=== PATIENT | male | born 1960 | race African-American/Black ===

== ENCOUNTER 2017-04-21 08:34 | Day surgery (SDC) | payer BC ==
[2017-04-21] MEDS ORDERED: Sodium Chloride 0.9% 20 ML ONE (08:42)
[2017-04-21] MEDS ORDERED: diphenhydrAMINE 25 MG CAP PO SCH (08:45)
[2017-04-21] MEDS ORDERED: Acetaminophen 500 MG TAB PO SCH (08:45)
[2017-04-21 09:47] VITALS: BP 97/61; TEMP 98
== END 2017-04-21 09:47 | disposition home or self-care (01) ==
LOC: ONC/OP 08:34
PROVIDERS: ATTEND Internal Medicine Hematology & Oncology
PROC: 30233N1 Transfusion of Nonautologous Red Blood Cells into Peripheral Vein, Percutaneous Approach (ICD-10-PCS; principal; 2017-04-21)
DX: D64.9 Anemia, unspecified (principal); D69.6 Thrombocytopenia, unspecified; E11.9 Type 2 diabetes mellitus without complications; E78.5 Hyperlipidemia, unspecified; Z88.6 Allergy status to analgesic agent; Z98.890 Other specified postprocedural states
CPT/HCPCS: 36430; 86900; 86901; 99211; A4216; G0463; P9035

== ENCOUNTER 2017-04-29 08:59 | Day surgery (SDC) | payer BC ==
--- NOTE | 2017-04-27 18:28 | HP ---
HISTORY OF PRESENT ILLNESS: Tomas Child 56-year-old black male, who I have seen in the past for a MediPort. He had multiple myeloma, light chain, having a stem cell transplant MD Win, [place] this, went into remission now. I have been requested to place a MediPort by Dr. Machado to resume treatment for recurrence. The patient has a history of acute renal failure, requiring dialysis cath eter and peritoneal dialysis catheter, which was placed, revised and then eventually removed. He is followed by Dr. Eden for his chronic kidney disease. The plan is to place a MediPort. He understand s the risks and benefits and consents. TOBACCO: One-half pack per day. ALCOHOL: None. MEDICATIONS: Revlimid 15 mg a day, aspirin 81 mg a day, 10 mg twice a day, Humulin 70/30 insul in, Warren 10/325 p.r.n. pain. PAST SURGICAL HISTORY: Right knee surgery in 1989, peritoneal dialysis catheter placed in 2013, revi sed and eventually removed, MediPort placement in 2013 that removed, MediPort placement in [place] placed and removed. PAST MEDICAL HISTORY: Multiple myeloma, light chain; history of acute renal failure with chronic kid daryl disease, followed by Dr. Eden; and history of tobacco use. SOCIAL HISTORY: Tobacco one-half pack per day. Alcohol none. The patient is disabled, and has three children. PHYSICAL EXAMINATION: VITAL SIGNS: 109/67, 81, 99.3 degrees, 197 pounds, 5 feet 10 inches. HEAD, EYES, EARS, NOSE, AND THROAT: Unremarkable. LUNGS: Clear to auscultation. CARDIAC: Regular rate and rhythm without murmur or gallop. ABDOMEN: Soft, nontender, no masses. EXTREMITIES: Unremarkable. ASSESSMENT: Recurrent multiple myeloma. PLAN: Placement of a MediPort. He understands the risks, benefits and consents.
[2017-04-28 14:40] VITALS: BMI 26.5
[2017-04-29] MEDS ORDERED: CEFAZOLIN/Water 2 GM/20 ML SYRINGE ONE (09:36)
[2017-04-29] MEDS ORDERED: Lidocaine 2% w/Epinephrine 1:200K 20 ML VIAL ONE (09:40)
[2017-04-29] MEDS ORDERED: Bupivacaine 0.25% HCL 30 ML VIAL ONE (09:40)
[2017-04-29] MEDS ORDERED: Fentanyl 100 MCG/2 ML VIAL ONE (10:09)
[2017-04-29] MEDS ORDERED: Midazolam HCl 2 mg/2 ml Vial ONE (10:09)
[2017-04-29] MEDS ORDERED: Insulin Regular 300 UNITS/3 ML VIAL ONE (10:13)
--- NOTE | 2017-04-29 11:32 | OP ---
DATE OF SERVICE: 04/29/2017 PREOPERATIVE DIAGNOSIS: Recurrent multiple myeloma in need of antineoplastic chemotherapy access. POSTOPERATIVE DIAGNOSIS: Recurrent multiple myeloma in need of antineoplastic chemotherapy access. PROCEDURE: Right subclavian vein MediPort, low profile, fluoroscopy used less than 25 seconds. SURGEON: Dr. Prfaul Johansen ANESTHESIA: General LMA. Local 0.5% Marcaine, 30 mL, mixed with 2% Xylocaine, 10 mL. PROCEDURE: The patient was taken to the operating room where under general anesthesia, chest was cli pped of hair, prepared with ChloraPrep, draped in routine fashion. Local anesthetic infiltrated into skin and subcutaneous tissue about the operative site. Trocar catheter cannulated the right subclav ramesh vein. J-wire threaded, trocar catheter removed. Skin incised and enlarged sharply through an ol d MediPort scar right chest, carried down through the skin and subcutaneous tissue and a pocket creat ed with blunt and sharp dissection using cautery for hemostasis. Dilator and pull-away sheath placed over the J-wire into the superior vena cava and J wire and dilator removed. Catheter placed through pull-away sheath; pull-away sheath removed. Under fluoroscopic visualization, the tip of catheter p laced in the superior vena cava and in proper position. Catheter tailored to length and connected to the MediPort, placed in subcutaneous pocket and secured with 3-0 Prolene sutures x2. Subcutaneous t issues approximated with 3-0 Monocryl, skin with subdermal 4-0 Monocryl and DermaGlue applied. MediP ort cannulated with the Baum needle, aspirated blood, and flushed with heparinized saline solution. Fluoroscopic images revealed good catheter placement.
--- NOTE | 2017-04-29 15:11 | RAD ---
PORTABLE CHEST ONE VIEW: Date: 04-29-17 Time: 11:14 a.m. History: Mediport placement. FINDINGS/IMPRESSION: The heart size is normal. There is a right subclavian port-a-cath with tip in the projection of the S VC. No lobar consolidation, pneumothoraces, or pleural effusions are seen. There is no evidence of fr ank pulmonary edema. There are old right sided rib fractures. POS: [facility]
[2017-04-29] MEDS ORDERED: Lidocaine 1% PF 5 ML VIAL ONE (16:31)
[2017-04-29] MEDS ORDERED: PROPOFOL 200 MG/20 ML VIAL ONE (16:31)
== END 2017-04-29 13:53 | disposition home or self-care (01) ==
LOC: SDC 08:59
PROVIDERS: ATTEND Specialist
PROC: 0JH60WZ Insertion of Totally Implantable Vascular Access Device into Chest Subcutaneous Tissue and Fascia, Open Approach (ICD-10-PCS; principal; 2017-04-29)
PROC: 02HV33Z Insertion of Infusion Device into Superior Vena Cava, Percutaneous Approach (ICD-10-PCS; principal; 2017-04-29)
DX: C90.00 Multiple myeloma not having achieved remission (principal); F17.210 Nicotine dependence, cigarettes, uncomplicated; I12.9 Hypertensive chronic kidney disease with stage 1 through stage 4 chronic kidney disease, or unspecified chronic kidney disease; E10.22 Type 1 diabetes mellitus with diabetic chronic kidney disease; N18.9 Chronic kidney disease, unspecified; K21.9 Gastro-esophageal reflux disease without esophagitis; K59.00 Constipation, unspecified; G47.00 Insomnia, unspecified; Z79.82 Long term (current) use of aspirin; Z79.899 Other long term (current) drug therapy; Z88.5 Allergy status to narcotic agent; Z88.6 Allergy status to analgesic agent; Z98.890 Other specified postprocedural states
CPT/HCPCS: 36416; 71045; 96372; C1788; J1642; J1815; J2001; J2250; J2704; J3010; S0020

== ENCOUNTER 2017-05-01 11:27 | Day surgery (SDC) | payer BC ==
[2017-05-01] MEDS ORDERED: Acetaminophen 500 MG TAB PO SCH (12:00)
[2017-05-01] MEDS ORDERED: diphenhydrAMINE 25 MG CAP PO SCH (12:00)
[2017-05-01] MEDS ORDERED: Sodium Chloride 0.9% 20 ML ONE (13:06)
[2017-05-01 17:42] VITALS: TEMP 97.9
[2017-05-01 18:10] VITALS: BP 106/61
[2017-05-01 18:48] LABS: #Lymphocytes 0.4 thou/uL (1.20-3.40); #Neutrophils 1.7 thou/uL (1.40-6.50); %Eosinophils 0.3 % (0.0-10.0); %Lymphocytes 18.8 % (21.0-51.0); %Monocytes 0.9 % (0.0-10.0); Hemoglobin 8.6 g/dL (14.0-18.0); Mean Corpuscular HGB CONC 34.5 g/dL (32.0-36.0); Mean Corpuscular Volume 92.8 fl (80.0-94.0); Mean Platelet Volume 8.5 fL (7.4-10.4); Platelet Count 70 thou/uL (130-400); RBC Distribution Width 14.9 % (11.5-14.5); Red Blood Cell (RBC) Count 2.69 mill/uL (4.70-6.10); White Blood Cell (WBC) Count 2.2 thou/uL (4.8-10.8)
== END 2017-05-01 18:21 | disposition home or self-care (01) ==
LOC: ONC/OP 11:27
PROVIDERS: ATTEND Internal Medicine Hematology & Oncology
PROC: 30233N1 Transfusion of Nonautologous Red Blood Cells into Peripheral Vein, Percutaneous Approach (ICD-10-PCS; principal; 2017-05-01)
PROC: 30233R1 Transfusion of Nonautologous Platelets into Peripheral Vein, Percutaneous Approach (ICD-10-PCS; principal; 2017-05-01)
DX: N18.9 Chronic kidney disease, unspecified (principal); D63.1 Anemia in chronic kidney disease; D69.6 Thrombocytopenia, unspecified; C90.00 Multiple myeloma not having achieved remission; F17.210 Nicotine dependence, cigarettes, uncomplicated; Z88.5 Allergy status to narcotic agent; Z88.6 Allergy status to analgesic agent
CPT/HCPCS: 36430; 85025; 86850; 86900; 86901; J1642; P9016; P9035

== ENCOUNTER 2017-05-06 12:42 | Inpatient (IN) | payer BC ==
[2017-05-06 13:35] LABS: #Eosinphils 0.1 thou/uL (0.0-0.7); #Lymphocytes 0.3 thou/uL (1.20-3.40); #Neutrophils 1.3 thou/uL (1.40-6.50); %Basophils 0.3 % (0.0-1.0); %Eosinophils 3.4 % (0.0-10.0); %Lymphocytes 17.2 % (21.0-51.0); %Monocytes 0.6 % (0.0-10.0); %Neutrophils 78.4 % (42.0-75.0); Hemoglobin 11.2 g/dL (14.0-18.0); Mean Corpuscular HGB CONC 33.7 g/dL (32.0-36.0); Mean Corpuscular Hemoglobin 31.5 pg (27.0-31.0); Mean Corpuscular Volume 93.5 fl (80.0-94.0); Mean Platelet Volume 10.2 fL (7.4-10.4); Platelet Count 41 thou/uL (130-400); RBC Distribution Width 14.9 % (11.5-14.5); Red Blood Cell (RBC) Count 3.56 mill/uL (4.70-6.10); White Blood Cell (WBC) Count 1.6 thou/uL (4.8-10.8)
[2017-05-06 13:50] LABS: ALT (SGPT) 10 U/L (8-55); AST (SGOT) 16 U/L (5-34); Alkaline Phosphatase 175 U/L (40-150); Anion Gap 12 mmol/L (10-20); BUN (Urea Nitrogen) 27 mg/dL (8.4-25.7); Bilirubin, Total 0.7 mg/dL (0.2-1.2); Calc. Creatinine Clearance 0 mL/min (70-130); Carbon Dioxide 25 mmol/L (22-29); Chloride 103 mmol/L (98-107); Estimated GFR-MDRD 30; Globulin 3.4 g/dL (2.4-3.5); Glucose 474 mg/dL (70-105); Potassium 4.7 mmol/L (3.5-5.1); Protein, Total 7.4 g/dL (6.0-8.3); Sodium 135 mmol/L (136-145)
[2017-05-06 14:11] LABS: Calcium Greater than 17.0 mg/dL (7.8-10.44)
--- NOTE | 2017-05-06 14:34 | RAD ---
UPRIGHT PORTABLE CHEST ONE VIEW: History: 56-year-old male with history of cough. Comparison: 04-29-17 FINDINGS: Right subclavian catheter and injection port. Healed right rib fracture. Heart size is within normal limits. There are increased linear and interstitial markings in the lower lung zones bilaterally, mor e prominent than on the prior study. Possibilities include that of minimal bibasilar pneumonitis and/ or subsegmental atelectasis. The mid and upper lung zones are clear. IMPRESSION: Patchy increased markings noted in the lower lung zones bilaterally, worse on the right side, raising concern for minimal lower lobe pneumonia-pneumonitis and/or subsegmental atelectasis. Correlate clin ically. If there is concern clinically for pneumonia, treatment and short term follow up for clearing or stability is recommended. POS: [facility]
[2017-05-06] MEDS ORDERED: Cefepime 2 GM/10 ML SYR ONE (15:06)
--- NOTE | 2017-05-06 17:11 | HP ---
PRIMARY CARE PROVIDER: Dr. Ventura. ONCOLOGIST: Dr. Danika Machado. CHIEF COMPLAINT: Referred to the [facility] by [facility] for pn eumonia and complications. HISTORY OF PRESENT ILLNESS: The patient has had illness for about 2-3 days back spasms, fever undocu mented, nonproductive cough, shortness of breath, chills, and sweats frequently. The patient has a h istory of multiple myeloma for 2 years, is currently on chemotherapy. He has a history of acute denae l failure requiring dialysis in the past, hypercalcemia, diabetes mellitus, insulin-dependent x2 year s. CURRENT MEDICATIONS: Lantus insulin, lispro, and hydrocodone. He does not know doses. ALLERGIES: He is allergic to IBUPROFEN. SURGICAL HISTORY: He has had a MediPort x2. The most recent done 1 week ago. He has had a hemodial ysis catheter placed in the past, which have been removed. FAMILY HISTORY: No one with multiple myeloma. He has one brother with diabetes mellitus type 2. SOCIAL HISTORY: , full code status. next of kin at bedside. Smokes half a pack a day f or many years. Drinks no alcohol. REVIEW OF SYSTEMS: GENERAL: No dizziness or fainting or headache. EYES: He has blurry vision with no double vision, flashing lights. ENT: No ear pain or drainage. No nasal bleeding. No trouble swallowing. No oral pain. CARDIAC: No chest pain, orthopnea or paroxysmal nocturnal dyspnea. RESPIRATIONS: See present illness. GASTROINTESTINAL: No nausea, vomiting, abdominal pain, and diarrhea. GENITOURINARY: Difficult urination for about 2 weeks. No blood in his urine. MUSCULOSKELETAL: No pain or swelling in his arms and legs. He does have back spasms currently. NEUROLOGIC: No strokes, seizures or focal weakness. PSYCHIATRIC: No anxiety or depression. SKIN: No bruising, bleeding or rash. HEME/LYMPH: No tender or swollen lymph nodes, he is aware of. PHYSICAL EXAMINATION: GENERAL: He is an alert, cooperative gentleman. VITAL SIGNS: Blood pressure 150/73, pulse 64, respirations 24, temperature 98.5, O2 sat 95 on room a ir. HEENT: Pupils equal, round, and reactive to light. Extraocular movements are intact. Sclerae white . Tympanic membranes clear. Nose is clear. Oral mucous membranes are wet. Dental hygiene is good. NECK: No jugular venous distention, adenopathy or thyromegaly. CHEST: Clear auscultation anteriorly. He has bilateral posterior basilar rales, right greater than left. HEART: Regular rate and rhythm. First and second heart sounds clear. No appreciated murmurs or gal lops. ABDOMEN: Soft, bowel sounds are normal. No hepatosplenomegaly, no mass, no rebound. EXTREMITIES: Reveal no cyanosis, clubbing or edema. PULSES: Carotid, radial, femoral, and pedal pulses were palpable and symmetric. SKIN: Warm and dry without bruises or rash. LYMPHATIC SURVEY: No tender or swollen lymph nodes in axilla, inguinal or cervical area. NEUROLOGICAL: Cranial nerves II-XII are intact. Deep tendon reflexes symmetric. Moves all extremit ies. LABORATORY AND X-RAY FINDINGS: EKG: None provided. We will order chest x-ray. No cardiomegaly. H e has bilateral patchy basilar infiltrates consistent with pneumonia, reviewed by me. Calcium is gre ater than 17, blood sugar 474, creatinine 2.68, BUN 27, sodium 135, potassium 4.7, bilirubin 0.7. T and ALT normal. White count 1.6, hemoglobin 11.2, and platelet count 41,000. ADMITTING DIAGNOSES: 1. Pneumonia. 2. Pancytopenia. 3. Multiple myeloma, on chemotherapy. 4. Hypercalcemia. 5. Acute renal failure. 6. Diabetes mellitus, insulin-dependent. PLAN: Blood cultures have been drawn and urine cultures have been ordered. We will start antibiotic s with cefepime and Levaquin. IV fluids will be given. Routine INR will be done. Accu-Cheks will b e started q.6h. Sliding scale has been initiated. CBC will be monitored daily. Basic metabolic pro file will be monitored daily. Dr. Arnold has been consulted and has seen the patient and has stated he will treat hyperkalemia. Dr. Danika Machado has been consulted and she will see the patient tomorr ow. ASSESSMENT: This patient with multiple medical problems including hypercalcemia and acute renal fail ure on top of pneumonia with underlying multiple myeloma. I have discussed the plan of treatment wit h the patient and the family and their satisfied with discussion. His prognosis is guarded. He is c urrently not unstable, however.
[2017-05-06] MEDS ORDERED: Acetaminophen 325 MG TAB PO PRN (17:37)
[2017-05-06] MEDS ORDERED: Dextrose 5% in Water 1,000 ML IV PRN (17:37)
[2017-05-06] MEDS ORDERED: Zolpidem Tartrate 5 MG TAB PO PRN (17:37)
[2017-05-06] MEDS ORDERED: HumaLOG 300 UNITS/3 ML VIAL SC PRN (17:37)
[2017-05-06] MEDS ORDERED: Ondansetron HCl/PF 4 MG/2 ML Vial IVP PRN (17:37)
[2017-05-06] MEDS ORDERED: Dextrose 50% Abboject 50 ML SYRINGE SLOW IVP PRN (17:37)
[2017-05-06] MEDS: Sodium Chloride 0.9% 1,000 ML IV SCH ×2 (17:40→21:13)
[2017-05-06] MEDS: Calcitonin,Salmon,Synthetic 200 UNITS/ML SC SCH (20:45)
[2017-05-06] MEDS ORDERED: Cefepime 2 GM in Sodium Chloride 0.9% 100 ML IVPB SCH (21:00)
[2017-05-07] MEDS: HumaLOG 300 UNITS/3 ML VIAL SC PRN ×5 (00:11→21:37)
[2017-05-07] MEDS: Cefepime 2 GM in Syringe 12.5 ML SLOW IVP SCH ×2 (02:32→15:44)
[2017-05-07 05:34] LABS: #Lymphocytes 0.6 thou/uL (1.20-3.40); #Monocytes 0.1 thou/uL (0.11-0.59); #Neutrophils 1.9 thou/uL (1.40-6.50); %Eosinophils 0.8 % (0.0-10.0); %Lymphocytes 22.5 % (21.0-51.0); %Monocytes 3.3 % (0.0-10.0); %Neutrophils 73.3 % (42.0-75.0); Hemoglobin 9.1 g/dL (14.0-18.0); Mean Corpuscular HGB CONC 34.5 g/dL (32.0-36.0); Mean Platelet Volume 10.1 fL (7.4-10.4); Platelet Count 31 thou/uL (130-400); RBC Distribution Width 15.1 % (11.5-14.5); Red Blood Cell (RBC) Count 2.85 mill/uL (4.70-6.10); White Blood Cell (WBC) Count 2.6 thou/uL (4.8-10.8)
[2017-05-07 05:40] LABS: Anion Gap 12 mmol/L (10-20); BUN (Urea Nitrogen) 31 mg/dL (8.4-25.7); Calc. Creatinine Clearance 38 mL/min (70-130); Calcium 15.6 mg/dL (7.8-10.44); Carbon Dioxide 22 mmol/L (22-29); Chloride 110 mmol/L (98-107); Estimated GFR-MDRD 33; Glucose 363 mg/dL (70-105); Potassium 4.5 mmol/L (3.5-5.1); Sodium 139 mmol/L (136-145)
--- NOTE | 2017-05-07 06:13 | CON ---
DATE OF CONSULTATION: 05/06/2017 NEPHROLOGY CONSULT NOTE CONSULTING PHYSICIAN: Dr. Deluca REASON FOR CONSULTATION: Acute kidney injury on chronic kidney disease. REASON FOR ADMISSION: Pneumonia. HISTORY OF PRESENT ILLNESS: A 56-year-old male with history of chronic kidney disease, hypercalcemia , type 2 diabetes, multiple myeloma, came to the hospital with pneumonia and is being admitted, was f ound to have hypercalcemia and chronic kidney disease. Nephrology is consulted. Oncology is also co nsulted. The patient is very weak and feeling tired. No nausea, vomiting, no chest pain, or palpita tion reported. PAST MEDICAL HISTORY: Positive for multiple myeloma, chronic kidney disease, history of CKD in the p ast and needing dialysis. PAST SURGICAL HISTORY: MediPort placement, dialysis access placements, and bone marrow transplant. HOME MEDICATIONS: Lantus, hydrocodone, Lispro. ALLERGIES: IBUPROFEN. SOCIAL HISTORY: Smokes half pack per day. No alcohol or illicit drug abuse. FAMILY HISTORY: No history of acute kidney disease. REVIEW OF SYSTEMS: The following complete review of systems was negative, unless otherwise mentioned in the HPI or below: Constitutional: Weight loss or gain, ability to conduct usual activities. Sk in: Rash, itching. Eyes: Double vision, pain. ENT/Mouth: Nose bleeding, neck stiffness, pain, te nderness. Cardiovascular: Palpitations, dyspnea on exertion, orthopnea. Respiratory: Shortness of breath, wheezing, cough, hemoptysis, fever or night sweats. Gastrointestinal: Poor appetite, abdom inal pain, heartburn, nausea, vomiting, constipation, or diarrhea. Genitourinary: Urgency, frequenc y, dysuria, nocturia. Musculoskeletal: Pain, swelling. Neurologic/Psychiatric: Anxiety, depressio n. Allergy/Immunologic: Skin rash, bleeding tendency. PHYSICAL EXAMINATION: GENERAL: This is a well-built male in no apparent distress. VITAL SIGNS: Temperature 96, pulse 107, respiratory rate 18, blood pressure 145/87. HEENT: Atraumatic, normocephalic. Oral mucosa is moist. NECK: Supple. CVS: S1, S2 heard. RESPIRATORY: Clear. MUSCULOSKELETAL: . DERMATOLOGIC: No skin rash. NEUROLOGIC: Alert, awake. PSYCHIATRIC: Mood and affect normal. LABORATORY AND X-RAY FINDINGS: Hemoglobin is 11.2, potassium is 4.7, BUN 27, creatinine is 2.6. ASSESSMENT AND PLAN: 1. Acute kidney injury on chronic kidney disease, most likely from hypercalcemia, agree with hydrati on. 2. Hypercalcemia, severe, most likely related to multiple myeloma. Agree with hydration and will al so start calcitonin 4 units per kilogram q.12 hours for 4 doses. Consider Zometa also every 3-4 week s, but will defer it to Oncology, not sure if he has gotten any dose recently. If not, then will con service and repair supervisor a dose in the morning after adequate hydration. 3. Hyponatremia, mild. 4. Hyperglycemia. Continue insulin. 5. Multiple myeloma. 6. Proteinuria. 7. Anemia, mild. Plan is to continue hydration and monitor renal function. Monitor calcium level. We will follow. Thank you for the consultation.
[2017-05-07] MEDS: Sodium Chloride 0.9% 1,000 ML IV SCH (06:27)
--- NOTE | 2017-05-07 08:00 | PDOC.PN ---
- Subjective Encounter Start Date: 05/07/17 Encounter Start Time: 07:58 Subjective: more alert, feels better - Objective Resuscitation Status: Resuscitation Status FULL:Full Resuscitation MAR Reviewed: Yes Vital Signs & Weight: Vital Signs (12 hours) Temp Pulse Resp BP 05/07/17 04:35 98.3 F 94 20 112/76 Weight Weight 177 lb 9 oz I&O: 05/06/17 05/07/17 05/08/17 06:59 06:59 06:59 Intake Total 1740 Output Total 750 Balance 990 Result Diagrams: 05/07/17 04:39 05/07/17 04:39 Additional Labs: Accuchecks 05/07/17 05/06/17 05/06/17 04:25 23:54 19:10 POC Glucose 372 H 385 H 491 H 05/06/17 18:23 POC Glucose 502 H Phys Exam - Physical Examination Neck: no JVD basilar rales Cardiovascular: RRR, no significant murmur Gastrointestinal: soft, positive bowel sounds Musculoskeletal: no edema Dx/Plan (1) PNA (pneumonia) Code(s): J18.9 - PNEUMONIA, UNSPECIFIED ORGANISM Status: Acute Qualifiers: Pneumonia type: due to unspecified organism Laterality: bilateral Lung location: lower lobe of lung Qualified Code(s): J18.9 - Pneumonia, unspecified organism (2) Pancytopenia Code(s): D61.818 - OTHER PANCYTOPENIA Status: Acute (3) Multiple myeloma Code(s): C90.00 - MULTIPLE MYELOMA NOT HAVING ACHIEVED REMISSION Status: Chronic Qualifiers: Multiple myeloma remission status: not in remission Qualified Code(s): C90.00 - Multiple myeloma not having achieved remission (4) Hypercalcemia Code(s): E83.52 - HYPERCALCEMIA Status: Acute (5) Acute renal failure Status: Acute - Plan cont calcitonin per renal- serial Ca levels -: cont iv fluids, creat improved -: cont iv antibx for PNA- C&S pending -: discuss with oncology, nephrology * .
[2017-05-07] MEDS: Insulin Detemir 100 UNITS/ML 20 UNITS in Pre-Filled Syringe 1 EACH SC SCH (09:46)
[2017-05-07] MEDS: Calcitonin,Salmon,Synthetic 200 UNITS/ML SC SCH ×2 (10:25→21:45)
--- NOTE | 2017-05-07 10:59 | PRG ---
Patient Name: NANDA JOHNSON Date of service: 05/07/2017 Subjective: Patient was seen and examined at bedside and overnight events noted. Patient denies any shortness of breath or chest pain or palpitation. No history of nausea or vomiting or diarrhea or fever or chills or cramps. Objective: General: This is a well-built male in no apparent distress. Vital signs : Temperature 98.3, pulse 90, respiratory rate 20, blood pressure 112/76. HEENT: Atraumatic, normocephalic. Oral mucosa is moist. Neck: Supple. Cardiovascular: S1 S2 heard. Rate and rhythm regular. Respiratory: Clear to auscultation. Gastrointestinal: Abdomen is soft. Musculoskeletal: No tenderness. No edema. Dermatologic: No skin rash. Neurologic: Alert and awake and oriented X3. No focal neurologic deficits. Moving all the extremit ies. Psychiatric: Mood and affect normal. LABORATORY DATA: Potassium 4.5, BUN 31, creatinine is 2.4. ASSESSMENT AND PLAN: 1. Acute kidney injury on chronic kidney disease stage 3. Renal function seems to be slightly cleo r with hydration. Continue current management. 2. Hypercalcemia, most likely secondary to malignancy. Follow with Oncology. Continue calcitonin a nd IV fluids. Lasix if needed and also consider Zometa. 3. Hyponatremia. 4. Hyperglycemia 5. Multiple myeloma. 6. Proteinuria. 7. Anemia. Calcium level is getting better. Awaiting input from Oncology. We will follow.
[2017-05-07] MEDS ORDERED: diphenhydrAMINE 50 MG/ML VIAL IVP SCH (14:15)
[2017-05-07] MEDS ORDERED: SODIUM CHLORIDE 0.9% IV SCH ×3 (14:30→14:45)
[2017-05-07] MEDS ORDERED: DARATUMUMAB IV SCH ×3 (14:30→14:45)
[2017-05-07] MEDS ORDERED: Dexamethasone 20 MG in Sodium Chloride 0.9% 50 ML IVPB SCH (14:30)
[2017-05-07] MEDS ORDERED: Famotidine/PF 20 MG in Sodium Chloride 0.9% 50 ML IVPB SCH (14:30)
[2017-05-07] MEDS ORDERED: Dexamethasone 10 MG in Sodium Chloride 0.9% 50 ML IVPB SCH (14:30)
--- NOTE | 2017-05-07 15:31 | CON ---
DATE OF CONSULTATION: 05/07/2017 REASON FOR CONSULTATION: Multiple myeloma. HISTORY OF PRESENT ILLNESS: Mr. Child is a 56-year-old -[place] male with kappa light deyanira n multiple myeloma, diagnosed 2 years ago. He presented at time of diagnosis with kidney failure. Margarito douglas was seen by MD Win and underwent a stem cell transplant and was in remission until middle of l year when he relapsed. He was on dialysis for a short period of time. MD Win gave him a cy sophie of in 03/2017. He did require a blood transfusion at that time. He was following up in [facility] to receive chemotherapy in this area. As he lives in this area, the decision was made with MD Win to place him on daratumumab. He presented to our clinic yesterday for a day #1 of treatm ent. He was complaining of cough and upper respiratory symptoms. Chemotherapy was started. Labs we re repeated and his calcium returned greater than 17. He was thus brought to the emergency room for further evaluation and a chest x-ray performed showed a possible pneumonia. He was started on antibi otics, IV fluids, and received calcitonin. Currently, he complains of back pain. No chest pain or s hortness of breath, no abdominal pain, no headache. PAST MEDICAL HISTORY: 1. [place] light chain multiple myeloma. 2. Diabetes mellitus 2. 3. Chronic kidney disease. 4. Acid reflux. 5. Chronic back pain. PAST SURGICAL HISTORY: 1. Stem cell transplant in 2014. 2. MediPort placement. ALLERGIES: IBUPROFEN. HOME MEDICATIONS: 1. Aspirin 81 mg daily. 2. Baclofen 10 mg q.8 hours p.r.n. 3. Hydrocodone 10/325. 4. Insulin daily. 5. Protonix 40 mg daily. FAMILY HISTORY: His uncle had an unknown type of cancer. SOCIAL HISTORY: He is . He has 3 children. Lives with his spouse. A [id number] smoker. No alcohol or illicit drug use. REVIEW OF SYSTEMS: A 10-point review of systems is negative except for noted in HPI. PHYSICAL EXAMINATION: VITAL SIGNS: Temperature is 97.8, pulse is 99, respiratory rate is 18 and BP is 116/74. He is satti ng 90% on room air. GENERAL: A well-developed, well-nourished male in no acute distress. HEENT: Normocephalic and atraumatic. Pupils are equal and reactive to light. NECK: Supple. CARDIOVASCULAR: Regular rate and rhythm. LUNGS: Clear. ABDOMEN: Soft and nontender, bowel sounds are positive. EXTREMITIES: There is no clubbing, cyanosis or edema. SKIN: No rash. HEMATOLOGIC: No petechia or purpura. NEUROLOGIC: Nonfocal. PSYCHIATRIC: The patient is alert and oriented and appropriate. PERTINENT LABORATORY AND X-RAYS: Current WBCs are 2.6, hemoglobin 9.1, hematocrit 26.5, platelet cou nt is 31,000, 73% neutrophils and 22% lymphocytes. Sodium is 139, potassium 4.5, chloride 110, CO2 i s 22, BUN is 31, creatinine 2.47, calcium is 15.6, total bilirubin is 0.7, AST 16, ALT is 10, alkalin e phosphatase is 175, serum total protein is 7.5, albumin 4 and globulin 3.4. Radiology per HPI. ASSSESSMENT: 1. Multiple myeloma. 2. Hypercalcemia. 3. Chronic pancytopenia due to chemo and myeloma. 4. Chronic kidney disease 4. 5. Pneumonia. DISCUSSION: The patient has started on IV hydration, calcitonin for his calcium and antibiotics. He will continue day #2 of Darzalex chemotherapy. We will monitor CBC closely; however, he is chronica lly pancytopenic and we will provide supportive care. Thank you for the consult.
[2017-05-07] MEDS: Polyethylene Glycol 3350 17 GM Packet PO PRN (15:51)
[2017-05-08] MEDS: Cefepime 2 GM in Syringe 12.5 ML SLOW IVP SCH ×2 (02:22→15:35)
[2017-05-08 05:39] LABS: Hemoglobin 8.5 g/dL (14.0-18.0); Mean Corpuscular HGB CONC 33.9 g/dL (32.0-36.0); Mean Corpuscular Hemoglobin 31.6 pg (27.0-31.0); Mean Corpuscular Volume 93.3 fl (80.0-94.0); Mean Platelet Volume 10.5 fL (7.4-10.4); Platelet Count 24 thou/uL (130-400); RBC Distribution Width 14.9 % (11.5-14.5); Red Blood Cell (RBC) Count 2.68 mill/uL (4.70-6.10); White Blood Cell (WBC) Count 2.7 thou/uL (4.8-10.8)
[2017-05-08 06:04] LABS: Band 22 % (5-11); Eosinophils 2 % (0-10); Lymphocytes 24 % (21-51); MDiff Complete? YES; Monocytes 2 % (0-10); Neutrophil 50 % (42-75); PLT Morphology Comment Appears Decreased
[2017-05-08 06:14] LABS: Anion Gap 10 mmol/L (10-20); BUN (Urea Nitrogen) 33 mg/dL (8.4-25.7); Calc. Creatinine Clearance 41 mL/min (70-130); Carbon Dioxide 22 mmol/L (22-29); Chloride 113 mmol/L (98-107); Estimated GFR-MDRD 37; Glucose 224 mg/dL (70-105); Potassium 4.2 mmol/L (3.5-5.1); Sodium 141 mmol/L (136-145)
[2017-05-08 06:19] LABS: Calcium 13.7 mg/dL (7.8-10.44)
[2017-05-08] MEDS: Sodium Chloride 0.9% 1,000 ML IV SCH ×2 (07:30→17:44)
[2017-05-08] MEDS: Insulin Detemir 100 UNITS/ML 20 UNITS in Pre-Filled Syringe 1 EACH SC SCH (09:30)
[2017-05-08] MEDS: Calcitonin,Salmon,Synthetic 200 UNITS/ML SC SCH (09:33)
--- NOTE | 2017-05-08 09:58 | PDOC.PN ---
- Subjective Encounter Start Date: 05/08/17 Encounter Start Time: 08:00 states he is doing well with no complaints this morning - Objective Resuscitation Status: Resuscitation Status FULL:Full Resuscitation Vital Signs & Weight: Vital Signs (12 hours) Temp Pulse Resp BP Pulse Ox 05/08/17 07:45 98.1 F 98 18 115/69 93 L 05/08/17 04:00 99.0 F 89 17 117/74 95 05/07/17 23:49 98.8 F 84 16 114/72 94 L Weight Admit Weight 178 lb Weight 173 lb I&O: 05/07/17 05/08/17 05/09/17 06:59 06:59 06:59 Intake Total 1740 2400 Output Total 750 2250 Balance 990 150 Result Diagrams: 05/08/17 05:26 05/08/17 05:26 Additional Labs: Accuchecks 05/08/17 05/08/17 05/08/17 07:33 04:13 00:33 POC Glucose 232 H 220 H 253 H 05/07/17 05/07/17 05/07/17 20:29 16:24 12:12 POC Glucose 312 H 322 H 333 H Phys Exam - Physical Examination Constitutional: NAD HEENT: PERRLA, moist MMs Neck: no nodes, no JVD Respiratory: no wheezing, no rales, clear to auscultation bilateral Cardiovascular: RRR Gastrointestinal: soft, non-tender, no distention Musculoskeletal: no edema, pulses present Neurological: non-focal Psychiatric: normal affect, A&O x 3 Dx/Plan (1) Acute renal failure Status: Acute (2) Hypercalcemia Code(s): E83.52 - HYPERCALCEMIA Status: Acute (3) PNA (pneumonia) Code(s): J18.9 - PNEUMONIA, UNSPECIFIED ORGANISM Status: Acute Qualifiers: Pneumonia type: due to unspecified organism Laterality: bilateral Lung location: lower lobe of lung Qualified Code(s): J18.9 - Pneumonia, unspecified organism (4) Pancytopenia Code(s): D61.818 - OTHER PANCYTOPENIA Status: Acute (5) Multiple myeloma Code(s): C90.00 - MULTIPLE MYELOMA NOT HAVING ACHIEVED REMISSION Status: Chronic Qualifiers: Multiple myeloma remission status: not in remission Qualified Code(s): C90.00 - Multiple myeloma not having achieved remission - Plan cont current plan of care, plan discussed w/ family, continue antibiotics * . continue IVF and calcitonin monitor creatnine and Ca in am follow recs from oncology and nephro
[2017-05-08 10:18] VITALS: BMI 24.8
--- NOTE | 2017-05-08 10:53 | PQF ---
NANDA JOHNSON [facility] [id number] CLINICAL DOCUMENTATION IMPROVEMENT CLARIFICATION FORM: ICD-10 Updated PLEASE DO AN ADDENDUM TO THE PROGRESS NOTE WITH ANY DOCUMENTATION UPDATES OR ADDITIONS AND CARRY THROUGH TO DC SUMMARY. THANK YOU. DATE: 05-08-17 ATTN: DR. JOHNSON Please exercise your independent, professional judgment in responding to the clarification form. Clinical indicators are provided on the bottom of this form for your review Please check appropriate box(s): [ ] Empirically treating Gram Negative Pneumonia [ ] Empirically treating Anaerobic Pneumonia [ ] Pneumonia secondary to (specify organism / underlying disease) [ ] Simple Pneumonia (community acquired - nosocomial) [ ] Pneumonia of unknown etiology [ ] Other diagnosis [ ] Unable to determine For continuity of documentation, please document condition throughout progress notes and discharge summary. Thank You. CLINICAL INDICATORS - SIGNS / SYMPTOMS / LABS ER: PNA; MULTIPLE MYELOMA; PANCYTOPENIA WBC 2-21 1.6 H&P: NONPRODUCTIVE COUGH; SOB; CHILLS; SWEATS FREQUENTLY MULTIPLE MYELOMA ON CHEMO PNA CXR: PATCHY INCREASED MARKINGS NOTED LOWER LUNG ZONES BILATERALLY. CONCERN FOR MINIMAL LOWER LOBE PNEUMONIA - PNEUMONITIS AND /OR SUBSEGMENTAL ATELECTASIS RISK FACTORS H&P: NONPRODUCTIVE COUGH; SOB; CILLS; SWEATS FREQUENTLY MULTIPLE MYELOMA ON CHEMO PNA TREATMENTS: MAR: MAXIPIME 05-06 / 05-07 / 05-08 LEVAQUIN 2- NS THANK YOU, CHARMAINE (This form is maintained as a part of the permanent medical record) 2014 [employer] All Rights Reserved Charmaine Bustillo RN, BS [email or web address] [employer] [facility]
[2017-05-08] MEDS: HYDROcodone/Acetaminophen 7.5/325 mg Tablet PO PRN ×2 (11:15→16:07)
[2017-05-08] MEDS ORDERED: Zoledronic Acid 3 MG in Sodium Chloride 0.9% 100 ML IVPB SCH (11:30)
[2017-05-08] MEDS: HumaLOG 300 UNITS/3 ML VIAL SC PRN ×2 (16:51→21:06)
[2017-05-08] MEDS: Polyethylene Glycol 3350 17 GM Packet PO PRN (17:39)
[2017-05-08] MEDS: Docusate 100 MG CAP PO SCH (21:07)
--- NOTE | 2017-05-08 23:30 | PRG ---
DATE OF SERVICE: 05/08/2017 SUBJECTIVE: Patient was seen and examined at bedside and overnight events noted. Patient denies any shortness of breath or chest pain or palpitation. No history of nausea or vomiting or diarrhea or f ever or chills or cramps. OBJECTIVE: GENERAL: This is a well-built male in no apparent distress. VITAL SIGNS: Temperature 98.7, pulse 90, respiratory 20, blood pressure 128/83. HEENT: Atraumatic, normocephalic. Oral mucosa is moist. NECK: Supple. CARDIOVASCULAR: S1, S2 heard. Rate and rhythm regular. RESPIRATORY: Clear to auscultation. GASTROINTESTINAL: Abdomen is soft. MUSCULOSKELETAL: No tenderness. No edema. DERMATOLOGIC: No skin rash. NEUROLOGIC: Alert and awake and oriented x3. No focal neurologic deficits. Moving all the extremit ies. PSYCHIATRIC: Mood and affect normal. LABORATORY DATA: Potassium is 4.2, BUN is 33, creatinine is 2.2. ASSESSMENT AND PLAN: 1. Acute kidney injury on chronic kidney disease stage 3. Her renal function was slightly improved. 2. Hypercalcemia related to malignancy. Continue calcitonin and IV fluids. Case discussed with Onc ology and plan is to start Zometa. His GFR is more than 30. Recommend 3 mg. 3. Hyponatremia, stable. 4. Multiple myeloma. 5. Proteinuria. 6. Anemia. 7. Edema, controlled. 8. Continue IV fluids at 100 mL per hour. We will consider Lasix if fluid overload. Follow up with Oncology.
[2017-05-09] MEDS: Cefepime 2 GM in Syringe 12.5 ML SLOW IVP SCH ×2 (03:30→15:00)
[2017-05-09] MEDS: Sodium Chloride 0.9% 1,000 ML IV SCH ×2 (04:17→12:35)
[2017-05-09 04:48] LABS: #Eosinphils 0.1 thou/uL (0.0-0.7); #Lymphocytes 0.6 thou/uL (1.20-3.40); #Monocytes 0.1 thou/uL (0.11-0.59); #Neutrophils 1.9 thou/uL (1.40-6.50); %Eosinophils 3.9 % (0.0-10.0); %Lymphocytes 21.8 % (21.0-51.0); %Monocytes 4.8 % (0.0-10.0); %Neutrophils 69.5 % (42.0-75.0); Hemoglobin 5.8 g/dL (14.0-18.0); Mean Corpuscular HGB CONC 34.9 g/dL (32.0-36.0); Mean Corpuscular Hemoglobin 32.2 pg (27.0-31.0); Mean Corpuscular Volume 92.3 fl (80.0-94.0); Platelet Count 18 thou/uL (130-400); RBC Distribution Width 14.7 % (11.5-14.5); White Blood Cell (WBC) Count 2.8 thou/uL (4.8-10.8)
[2017-05-09 04:49] LABS: Anion Gap 9 mmol/L (10-20); BUN (Urea Nitrogen) 30 mg/dL (8.4-25.7); Calc. Creatinine Clearance 47 mL/min (70-130); Carbon Dioxide 23 mmol/L (22-29); Chloride 112 mmol/L (98-107); Estimated GFR-MDRD 44; Glucose 187 mg/dL (70-105); Magnesium 1.6 mg/dL (1.6-2.6); Phosphorus 2.7 mg/dL (2.3-4.7); Potassium 3.6 mmol/L (3.5-5.1); Sodium 140 mmol/L (136-145)
[2017-05-09] MEDS: HumaLOG 300 UNITS/3 ML VIAL SC PRN ×3 (05:41→17:42)
[2017-05-09 05:57] LABS: Hemoglobin 8.5 g/dL (14.0-18.0); Platelet Count 17 thou/uL (130-400)
[2017-05-09] MEDS: Docusate 100 MG CAP PO SCH ×2 (08:41→20:15)
[2017-05-09] MEDS: Insulin Detemir 100 UNITS/ML 20 UNITS in Pre-Filled Syringe 1 EACH SC SCH (08:42)
[2017-05-09] MEDS: Polyethylene Glycol 3350 17 GM Packet PO SCH (08:42)
--- NOTE | 2017-05-09 09:36 | PDOC.PN ---
- Subjective Encounter Start Date: 05/09/17 Encounter Start Time: 08:00 doing better. no acute night events. feels like his mind is clearing up more - Objective Resuscitation Status: Resuscitation Status FULL:Full Resuscitation Vital Signs & Weight: Vital Signs (12 hours) Temp Pulse Resp BP Pulse Ox 05/09/17 08:13 98.7 F 100 18 95 05/09/17 07:20 98.7 F 100 18 99/65 95 Weight Admit Weight 178 lb Weight 173 lb I&O: 05/08/17 05/09/17 05/10/17 06:59 06:59 06:59 Intake Total 2400 4872.5 Output Total 2250 2400 Balance 150 2472.5 Result Diagrams: 05/09/17 05:47 05/09/17 04:30 Additional Labs: Accuchecks 05/09/17 05/08/17 05/08/17 05:36 20:20 16:45 POC Glucose 217 H 367 H 416 H 05/08/17 11:52 POC Glucose 208 H Phys Exam - Physical Examination Constitutional: NAD HEENT: PERRLA, moist MMs Neck: no nodes, no JVD Respiratory: no wheezing, no rales, no rhonchi, clear to auscultation bilateral Cardiovascular: RRR Gastrointestinal: soft, non-tender, no distention Musculoskeletal: pulses present Neurological: non-focal Psychiatric: normal affect, A&O x 3 Dx/Plan (1) Acute renal failure Status: Acute (2) Hypercalcemia Code(s): E83.52 - HYPERCALCEMIA Status: Acute (3) PNA (pneumonia) Code(s): J18.9 - PNEUMONIA, UNSPECIFIED ORGANISM Status: Acute Qualifiers: Pneumonia type: due to unspecified organism Laterality: bilateral Lung location: lower lobe of lung Qualified Code(s): J18.9 - Pneumonia, unspecified organism Comment: likely community acquired (4) Pancytopenia Code(s): D61.818 - OTHER PANCYTOPENIA Status: Acute (5) Multiple myeloma Code(s): C90.00 - MULTIPLE MYELOMA NOT HAVING ACHIEVED REMISSION Status: Chronic Qualifiers: Multiple myeloma remission status: not in remission Qualified Code(s): C90.00 - Multiple myeloma not having achieved remission - Plan cont current plan of care, plan discussed w/ family, continue antibiotics, PT/OT * . continue current plan calcitonin and IVF follow recs from Oncology renal following. order PT
[2017-05-09] MEDS ORDERED: Furosemide 40 MG/4 ML VIAL SLOW IVP SCH (12:00)
--- NOTE | 2017-05-09 12:32 | PRG ---
DATE OF SERVICE: 05/09/2017 SUBJECTIVE: Patient was seen and examined at bedside and overnight events noted. Patient denies any shortness of breath or chest pain or palpitation. No history of nausea or vomitin g or diarrhea or fever or chills or cramps. OBJECTIVE: GENERAL: This is a well-built male, in no apparent distress. VITAL SIGNS: Temperature 98.4, pulse 92, respiratory rate 18, blood pressure 118/77. HEENT: Atraumatic, normocephalic. Oral mucosa is moist NECK: Supple. CARDIOVASCULAR: S1 and S2 heard. Rate and rhythm regular. RESPIRATORY: Clear to auscultation. GASTROINTESTINAL: Abdomen is soft. MUSCULOSKELETAL: No tenderness. No edema. DERMATOLOGIC: No skin rash. NEUROLOGIC: Alert and awake and oriented X3, No focal neurologic deficits. Moving all the extremitie s. PSYCHIATRIC: Mood and affect normal. LABORATORY DATA: Potassium 3.6, BUN 70, creatinine 1.9, calcium is 13. Hemoglobin is 8.5, better fr om 5.8. ASSESSMENT AND PLAN: 1. Acute kidney injury on chronic kidney stage 3. Renal function is stable. 2. Feeling better. 3. Hypercalcemia related to malignancy, gave a dose of Zometa, finished calcitonin and continue IV f luids. We will continue to give a dose of Lasix also today. 4. Hyponatremia, stable. 5. Multiple myeloma. 6. Anemia. 7. . 8. Edema, controlled. One dose of Lasix today, continue IV fluids. We will follow.
[2017-05-09] MEDS: HYDROcodone/Acetaminophen 7.5/325 mg Tablet PO PRN (12:34)
[2017-05-10] MEDS: HumaLOG 300 UNITS/3 ML VIAL SC PRN ×5 (00:15→20:35)
[2017-05-10] MEDS: Sodium Chloride 0.9% 1,000 ML IV SCH ×4 (00:18→17:09)
[2017-05-10] MEDS: Cefepime 2 GM in Syringe 12.5 ML SLOW IVP SCH ×2 (03:45→15:01)
[2017-05-10 05:20] LABS: Anion Gap 9 mmol/L (10-20); BUN (Urea Nitrogen) 23 mg/dL (8.4-25.7); Calc. Creatinine Clearance 56 mL/min (70-130); Carbon Dioxide 22 mmol/L (22-29); Chloride 109 mmol/L (98-107); Estimated GFR-MDRD 53; Glucose 192 mg/dL (70-105); Potassium 3.4 mmol/L (3.5-5.1); Sodium 137 mmol/L (136-145)
[2017-05-10 05:33] LABS: Calcium 12.5 mg/dL (7.8-10.44)
[2017-05-10 05:40] LABS: Band 4 % (5-11); Lymphocytes 8 % (21-51); MDiff Complete? YES; Monocytes 28 % (0-10); Neutrophil 60 % (42-75); PLT Morphology Comment Appears Decreased
[2017-05-10] MEDS: Insulin Detemir 100 UNITS/ML 20 UNITS in Pre-Filled Syringe 1 EACH SC SCH (08:22)
[2017-05-10] MEDS: Docusate 100 MG CAP PO SCH ×2 (08:22→20:31)
[2017-05-10] MEDS: Polyethylene Glycol 3350 17 GM Packet PO SCH (08:22)
--- NOTE | 2017-05-10 11:30 | PDOC.PN ---
- Subjective Encounter Start Date: 05/10/17 Encounter Start Time: 09:20 Subjective: feels better, no sob, is amb in room - Objective Resuscitation Status: Resuscitation Status FULL:Full Resuscitation MAR Reviewed: Yes Vital Signs & Weight: Vital Signs (12 hours) Temp Pulse Resp BP Pulse Ox 05/10/17 08:00 98.8 F 101 H 16 90/63 96 05/10/17 07:26 98.6 F 94 16 Weight Admit Weight 178 lb Weight 173 lb I&O: 05/09/17 05/10/17 05/11/17 06:59 06:59 06:59 Intake Total 4872.5 3570 Output Total 2400 2975 Balance 2472.5 595 Result Diagrams: 05/10/17 04:50 05/10/17 04:50 Additional Labs: Accuchecks 05/10/17 05/09/17 05/09/17 05:49 19:56 16:45 POC Glucose 218 H 334 H 347 H 05/09/17 11:26 POC Glucose 244 H Phys Exam - Physical Examination HEENT: PERRLA, moist MMs Neck: no JVD, supple Respiratory: no wheezing, no rales Cardiovascular: RRR, no significant murmur Gastrointestinal: soft, non-tender, positive bowel sounds Musculoskeletal: no edema, pulses present Neurological: non-focal, moves all 4 limbs Psychiatric: A&O x 3 Dx/Plan (1) PNA (pneumonia) Code(s): J18.9 - PNEUMONIA, UNSPECIFIED ORGANISM Status: Acute Qualifiers: Pneumonia type: due to unspecified organism Laterality: bilateral Lung location: lower lobe of lung Qualified Code(s): J18.9 - Pneumonia, unspecified organism Comment: likely community acquired (2) Acute renal failure Status: Acute Comment: resolving (3) Hypercalcemia Code(s): E83.52 - HYPERCALCEMIA Status: Acute Comment: sec to multiple myeloma (4) Pancytopenia Code(s): D61.818 - OTHER PANCYTOPENIA Status: Acute (5) Multiple myeloma Code(s): C90.00 - MULTIPLE MYELOMA NOT HAVING ACHIEVED REMISSION Status: Chronic Qualifiers: Multiple myeloma remission status: not in remission Qualified Code(s): C90.00 - Multiple myeloma not having achieved remission Comment: prior failed stem cell therapy, now on chemo - Plan is on levaquin, cefepime -: gentle iv hydration -: serum akanksha is 12.5 -: renal function is slowly trending back to baseline -: likely dc in am if ok with hemeonc, has severe pancytopenia * . Review of Systems - Medications/Allergies Allergies/Adverse Reactions: Allergies Allergy/AdvReac Type Severity Reaction Status Date / Time ibuprofen Allergy Severe Verified 04/28/17 14:41 morphine Allergy "BAD Verified 04/28/17 14:41 REACTION" Medications: Current Medications Acetaminophen (Tylenol) 650 mg PO Q4H PRN PRN Reason: Headache/Fever or Pain Hydrocodone Bitart/Acetaminophen ([place] 7.5/325) 1 tab PO Q4H PRN PRN Reason: Moderate Pain (4-6) Last Admin: 05/09/17 12:34 Dose: 1 tab Dextrose/Water (Dextrose 50%) 25 gm SLOW IVP PRN PRN PRN Reason: Hypoglycemia Docusate Sodium (Colace) 100 mg PO BID [facility] Last Admin: 05/10/17 08:22 Dose: 100 mg Glucagon (Glucagon) 1 mg IM PRN PRN PRN Reason: Hypoglycemia Dextrose/Water (D5w) 1,000 mls @ 0 mls/hr IV .Q0M PRN; As Directed PRN Reason: Hypoglycemia Sodium Chloride (Normal Saline 0.9%) 1,000 mls @ 100 mls/hr IV .Q10H [facility] Last Admin: 05/10/17 00:18 Dose: 1,000 mls Levofloxacin 500 mg/ Device 100 mls @ 100 mls/hr IVPB Q2D@1800 [facility] Last Admin: 05/08/17 17:38 Dose: 100 mls Cefepime HCl 2 gm/ Syringe 12.5 mls @ 150 mls/hr SLOW IVP 0300,1500 [facility] Last Admin: 05/10/17 03:45 Dose: 12.5 mls Insulin Detemir 20 units/ (Miscellaneous Medication) 0.2 mls @ 0 mls/hr SC QAM [facility] Last Admin: 05/10/17 08:22 Dose: 0.2 mls Insulin Human Lispro (Humalog) 0 units SC .AGGRESSIVE SLIDING PRN; Protocol PRN Reason: AGGRESSIVE SLIDING SCALE Last Admin: 05/10/17 06:44 Dose: 3 unit Insulin Human Lispro (Humalog) 0 units SC .BEDTIME SLIDING SC PRN; Protocol PRN Reason: BEDTIME SLIDING SCALE Last Admin: 05/10/17 00:15 Dose: 4 unit Ondansetron HCl (Zofran) 4 mg IVP Q6H PRN PRN Reason: Nausea/Vomiting Last Admin: 05/08/17 09:30 Dose: 4 mg Polyethylene Glycol (Miralax) 17 gm PO DAILY PRN PRN Reason: CONSTIPATION Last Admin: 05/08/17 17:39 Dose: 17 gm Polyethylene Glycol (Miralax) 17 gm PO DAILY [facility] Last Admin: 05/10/17 08:22 Dose: 17 gm Sodium Chloride (Flush - Normal Saline) 10 ml IVF Q12HR [facility] Last Admin: 05/10/17 08:22 Dose: Not Given Sodium Chloride (Flush - Normal Saline) 10 ml IVF PRN PRN PRN Reason: Saline Flush Last Admin: 05/07/17 14:59 Dose: 10 ml Zolpidem Tartrate (Ambien) 5 mg PO HSPRN PRN PRN Reason: Insomnia
[2017-05-10 15:11] LABS: #Eosinphils 0.1 thou/uL (0.0-0.7); #Lymphocytes 0.4 thou/uL (1.20-3.40); %Monocytes 2.8 % (0.0-10.0); %Neutrophils 66.3 % (42.0-75.0); Hemoglobin 7.8 g/dL (14.0-18.0); Mean Corpuscular HGB CONC 34.5 g/dL (32.0-36.0); Mean Corpuscular Hemoglobin 31.9 pg (27.0-31.0); Mean Corpuscular Volume 92.4 fl (80.0-94.0); Platelet Count 14 thou/uL (130-400); RBC Distribution Width 15.1 % (11.5-14.5); Red Blood Cell (RBC) Count 2.45 mill/uL (4.70-6.10); White Blood Cell (WBC) Count 1.6 thou/uL (4.8-10.8)
--- NOTE | 2017-05-10 18:24 | PRG ---
DATE OF SERVICE: 05/10/2017 NEPHROLOGY PROGRESS NOTE SUBJECTIVE: Patient was seen and examined at bedside and overnight events noted. Patient denies any shortness of breath or chest pain or palpitation. No history of nausea or vomiting or diarrhea or f ever or chills or cramps. OBJECTIVE: GENERAL: This is a well-built male in no apparent distress. VITAL SIGNS: Temperature 98.9, pulse 87, respiratory rate 16, blood pressure 101/67. HEENT: Atraumatic, normocephalic. Oral mucosa is moist. NECK: Supple. CARDIOVASCULAR: S1, S2 heard. Rate and rhythm regular. RESPIRATORY: Clear to auscultation. GASTROINTESTINAL: Abdomen is soft. MUSCULOSKELETAL: No tenderness. No edema. DERMATOLOGIC: No skin rash. NEUROLOGIC: Alert and awake and oriented x3. No focal neurologic deficits. Moving all the extremiti es. PSYCHIATRIC: Mood and affect normal. LABORATORY DATA: Hemoglobin is 7.8, potassium is 3.5, calcium 12.5, and creatinine is 1.7. ASSESSMENT AND PLAN: 1. Acute kidney injury on chronic kidney disease stage 3. Renal function is much better. We will r educe IV fluids to 50 mL per hour. 2. Hypercalcemia related to malignancy, status post Zometa. Monitor calcium. 3. Hyponatremia. 4. Multiple myeloma. Follow with Oncology. 5. 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 6. Edema, controlled. 7. Reduce IV fluids, monitor renal function and calcium, we will follow.
[2017-05-10] MEDS: HYDROcodone/Acetaminophen 7.5/325 mg Tablet PO PRN (20:31)
[2017-05-11] MEDS: Cefepime 2 GM in Syringe 12.5 ML SLOW IVP SCH (02:02)
[2017-05-11] MEDS: Sodium Chloride 0.9% 1,000 ML IV SCH ×2 (02:06→09:00)
[2017-05-11] MEDS: HumaLOG 300 UNITS/3 ML VIAL SC PRN (06:05)
[2017-05-11 08:33] VITALS: TEMP 98.4
--- NOTE | 2017-05-11 08:49 | PRG ---
DATE OF SERVICE: 05/11/2017 SUBJECTIVE: This is a 56-year-old gentleman being seen for acute kidney injury. The patient denies any nausea, vomiting, or chest pain. PHYSICAL EXAMINATION: GENERAL: Patient is awake, alert. VITAL SIGNS: Afebrile, pulse 93, breathing at 16, blood pressure 103/60. OBJECTIVE: See above. Awake, alert, in no acute distress. GENERAL APPEARANCE AND MENTAL STATUS: Fair. HEAD/NECK: Normocephalic. Atraumatic. EYES: EOMI. No deformity. EARS: Clear. No ulcers. NOSE: Intact. No lesions. MOUTH: Clear. No discharge. THROAT: Clear. No exudate. LUNGS: Clear. No crackles. CARDIAC: S1, S2. No rub. ABDOMEN: Benign. BS+. GENITALIA/RECTUM: Bhakta absent. BACK/EXTREMITIES: Edema 0+ Ulcer- NEUROLOGICAL: Alert and motor intact. SKIN: Rash- Bruise- LYMPHATICS: Edema- Ulcer- LABORATORY: Hemoglobin is 7.8, potassium 3.4, creatinine 1.6. ASSESSMENT AND RECOMMENDATIONS: 1. Acute kidney injury with chronic kidney disease, due to multiple myeloma. No indication for dial ysis. 2. Hypokalemia. Recheck potassium. 3. Hypercalcemia. Recheck calcium. Hypercalcemia management per Hematology.
[2017-05-11] MEDS: Insulin Detemir 100 UNITS/ML 20 UNITS in Pre-Filled Syringe 1 EACH SC SCH (08:54)
[2017-05-11] MEDS: Docusate 100 MG CAP PO SCH (09:00)
[2017-05-11] MEDS: Polyethylene Glycol 3350 17 GM Packet PO SCH (09:00)
[2017-05-11 09:40] LABS: Anion Gap 9 mmol/L (10-20); BUN (Urea Nitrogen) 20 mg/dL (8.4-25.7); Calc. Creatinine Clearance 59 mL/min (70-130); Calcium 11.3 mg/dL (7.8-10.44); Carbon Dioxide 20 mmol/L (22-29); Chloride 109 mmol/L (98-107); Estimated GFR-MDRD 56; Glucose 239 mg/dL (70-105); Potassium 3.4 mmol/L (3.5-5.1); Sodium 135 mmol/L (136-145)
--- NOTE | 2017-05-11 12:13 | PDOC.PN ---
- Subjective Encounter Start Date: 05/11/17 Encounter Start Time: 09:15 Subjective: feels better, is amb in room and eating well - Objective Resuscitation Status: Resuscitation Status FULL:Full Resuscitation MAR Reviewed: Yes Vital Signs & Weight: Vital Signs (12 hours) Temp Pulse Resp BP Pulse Ox 05/11/17 08:32 98.4 F 93 18 95/60 98 05/11/17 08:00 98.4 F 93 18 Weight Admit Weight 178 lb Weight 173 lb I&O: 05/10/17 05/11/17 05/12/17 06:59 06:59 06:59 Intake Total 3570 4160 Output Total 2975 2835 Balance 595 1325 Result Diagrams: 05/10/17 15:03 05/11/17 09:03 Additional Labs: Accuchecks 05/11/17 05/10/17 05/10/17 06:04 19:55 17:05 POC Glucose 219 H 261 H 242 H 05/10/17 11:37 POC Glucose 321 H Phys Exam - Physical Examination HEENT: PERRLA, moist MMs Neck: no JVD, supple Respiratory: no wheezing, no rales Cardiovascular: RRR, no significant murmur Gastrointestinal: soft, non-tender, positive bowel sounds Musculoskeletal: no edema, pulses present Neurological: non-focal, moves all 4 limbs Psychiatric: A&O x 3 Dx/Plan (1) PNA (pneumonia) Code(s): J18.9 - PNEUMONIA, UNSPECIFIED ORGANISM Status: Acute Qualifiers: Pneumonia type: due to unspecified organism Laterality: bilateral Lung location: lower lobe of lung Qualified Code(s): J18.9 - Pneumonia, unspecified organism Comment: likely community acquired (2) Acute renal failure Status: Acute Comment: resolving (3) Hypercalcemia Code(s): E83.52 - HYPERCALCEMIA Status: Acute Comment: sec to multiple myeloma (4) Pancytopenia Code(s): D61.818 - OTHER PANCYTOPENIA Status: Acute (5) Multiple myeloma Code(s): C90.00 - MULTIPLE MYELOMA NOT HAVING ACHIEVED REMISSION Status: Chronic Qualifiers: Multiple myeloma remission status: not in remission Qualified Code(s): C90.00 - Multiple myeloma not having achieved remission Comment: prior failed stem cell therapy, now on chemo - Plan hemostable -: adv to drink atleast 2 liters of free water -: d/w [employer] for , is ok for discharge -: to f/u with onc in 1 week -: prognosis guarded with likely aggresive MM * . Review of Systems - Medications/Allergies Allergies/Adverse Reactions: Allergies Allergy/AdvReac Type Severity Reaction Status Date / Time ibuprofen Allergy Severe Verified 04/28/17 14:41 morphine Allergy "BAD Verified 04/28/17 14:41 REACTION" Medications: Current Medications Acetaminophen (Tylenol) 650 mg PO Q4H PRN PRN Reason: Headache/Fever or Pain Hydrocodone Bitart/Acetaminophen ([place] 7.5/325) 1 tab PO Q4H PRN PRN Reason: Moderate Pain (4-6) Last Admin: 05/10/17 20:31 Dose: 1 tab Dextrose/Water (Dextrose 50%) 25 gm SLOW IVP PRN PRN PRN Reason: Hypoglycemia Docusate Sodium (Colace) 100 mg PO BID [facility] Last Admin: 05/11/17 09:00 Dose: Not Given Glucagon (Glucagon) 1 mg IM PRN PRN PRN Reason: Hypoglycemia Dextrose/Water (D5w) 1,000 mls @ 0 mls/hr IV .Q0M PRN; As Directed PRN Reason: Hypoglycemia Levofloxacin 500 mg/ Device 100 mls @ 100 mls/hr IVPB Q2D@1800 [facility] Last Admin: 05/10/17 17:08 Dose: 100 mls Cefepime HCl 2 gm/ Syringe 12.5 mls @ 150 mls/hr SLOW IVP 0300,1500 [facility] Last Admin: 05/11/17 02:02 Dose: 12.5 mls Insulin Detemir 20 units/ (Miscellaneous Medication) 0.2 mls @ 0 mls/hr SC QAM [facility] Last Admin: 05/11/17 08:54 Dose: 0.2 mls Sodium Chloride (Normal Saline 0.9%) 1,000 mls @ 75 mls/hr IV .[id number] [facility] Last Admin: 05/11/17 09:00 Dose: Not Given Insulin Human Lispro (Humalog) 0 units SC .AGGRESSIVE SLIDING PRN; Protocol PRN Reason: AGGRESSIVE SLIDING SCALE Last Admin: 05/11/17 06:05 Dose: 6 unit Insulin Human Lispro (Humalog) 0 units SC .BEDTIME SLIDING SC PRN; Protocol PRN Reason: BEDTIME SLIDING SCALE Last Admin: 05/10/17 20:35 Dose: 3 unit Ondansetron HCl (Zofran) 4 mg IVP Q6H PRN PRN Reason: Nausea/Vomiting Last Admin: 05/08/17 09:30 Dose: 4 mg Polyethylene Glycol (Miralax) 17 gm PO DAILY PRN PRN Reason: CONSTIPATION Last Admin: 05/08/17 17:39 Dose: 17 gm Polyethylene Glycol (Miralax) 17 gm PO DAILY [facility] Last Admin: 05/11/17 09:00 Dose: Not Given Sodium Chloride (Flush - Normal Saline) 10 ml IVF Q12HR [facility] Last Admin: 05/11/17 09:00 Dose: Not Given Sodium Chloride (Flush - Normal Saline) 10 ml IVF PRN PRN PRN Reason: Saline Flush Last Admin: 05/07/17 14:59 Dose: 10 ml Zolpidem Tartrate (Ambien) 5 mg PO HSPRN PRN PRN Reason: Insomnia
[2017-05-11 13:36] VITALS: BP 99/67
--- NOTE | 2017-05-12 00:31 | DIS ---
DATE OF ADMISSION: 05/06/2017 DATE OF DISCHARGE: 05/11/2017 DISCHARGE DISPOSITION: To home. PRIMARY DISCHARGE DIAGNOSES: Progressive multiple myeloma with hypercalcemia; severe dehydration and pancytopenia and acute renal failure, all of which are slowly resolving; pneumonia. PROCEDURES DONE DURING HOSPITALIZATION: The patient had chest x-ray done on the day of admission, wh ich showed patchy infiltrates in lower lung zones with early infiltrate. Blood cultures x2 no growth . Urine culture, no growth. Discharge white count of 1.6 with H&H of 7.8 and 22.7, platelet count o n the day of discharge is 14, MCV is 92 with 66% neutrophils. Discharge BUN and creatinine are 20 an d 1.56. Discharge calcium is 11.3. Initial serum calcium was 17 with an albumin levels of 4.0. His BUN and creatinine were 27 and 2.6 on the day of admission. INPATIENT CONSULTS: Dr. Arnold for Nephrology. Ms. Nevin Arnett for Oncology. DISCHARGE MEDICATIONS: Omnicef 300 mg p.o. twice daily for 1 week for pneumonia, aspirin 81 mg p.o. daily, [place] p.r.n. for pain, Lantus 20 units subcu daily, Protonix 40 mg p.o. daily, MiraLax 17 gram s p.o. daily. ALLERGIES: MOTRIN and MORPHINE. DISCHARGE PLAN: The patient to follow up with Dr. Machado as advised and Dr. Arnold, outreach associate, as advised and primary care physician in 1 week. BRIEF COURSE DURING HOSPITALIZATION: The patient initially got admitted with complaints of generaliz ed weakness, back spasms, fever, dry cough, shortness of breath, chills, and sweats. He has known hi story of multiple myeloma and initial blood work showed pancytopenia. Hip x-ray was also suspicious for early pneumonia. The patient had acute renal failure with severe hypercalcemia. The patient got a dose of zoledronic acid in the ER. He was aggressively hydrated and has had consultation with Dr. Arnold as well. His renal function has slowly come back to his baseline and his serum calcium is a round 11 at the time of discharge. The patient is wanting to go home today. His pancytopenia has re mained more or less stable. He was evaluated by Ms. Nevin Arnett, nurse practitioner, for Dr. Fleene r. He has been cleared by Ms. Nevin Arnett for discharge today. The patient needs to follow up with Dr. Machado as advised and primary care physician in 1 week.
== END 2017-05-11 12:23 | disposition home or self-care (01) | DRG 193 ==
LOC: ERS 12:42 → 2NO 15:20 → ONC 05-07 16:57 → T4-A 05-08 17:59
PROVIDERS: ADMIT Internal Medicine; ATTEND Internal Medicine
DX: J18.9 Pneumonia, unspecified organism (principal); D61.810 Antineoplastic chemotherapy induced pancytopenia; N17.9 Acute kidney failure, unspecified; C90.00 Multiple myeloma not having achieved remission; E11.22 Type 2 diabetes mellitus with diabetic chronic kidney disease; N18.4 Chronic kidney disease, stage 4 (severe); E87.1 Hypo-osmolality and hyponatremia; D63.1 Anemia in chronic kidney disease; E83.52 Hypercalcemia; Z79.4 Long term (current) use of insulin; E87.6 Hypokalemia; I12.9 Hypertensive chronic kidney disease with stage 1 through stage 4 chronic kidney disease, or unspecified chronic kidney disease; R60.9 Edema, unspecified; R80.9 Proteinuria, unspecified; E11.65 Type 2 diabetes mellitus with hyperglycemia; F17.210 Nicotine dependence, cigarettes, uncomplicated; Z99.2 Dependence on renal dialysis
CPT/HCPCS: 36415; 36416; 71045; 80048; 80053; 81403; 82010; 82040; 82248; 83615; 83735; 84100; 84550; 85025; 86850; 86880; 86900; 86901; 86905; 86972; 87040; 87086; 96361; 96365; A4216; G8978-GP-CH; G8979-GP-CH; G8980-GP-CH; G8996-GN-CJ; G8997-GN-CI; J0692; J1100; J1200; J1642; J1815; J1940; J1956; J2405; J3489; J7050; J9145; S0028

== ENCOUNTER 2017-05-17 09:48 | Day surgery (SDC) | payer BC ==
[2017-05-17] MEDS ORDERED: diphenhydrAMINE 25 MG CAP PO SCH (10:30)
[2017-05-17] MEDS ORDERED: Acetaminophen 500 MG TAB PO SCH (10:30)
[2017-05-17 17:30] VITALS: BP 107/63; TEMP 98.8
[2017-05-17 17:40] LABS: Hemoglobin 9.3 g/dL (14.0-18.0); Mean Corpuscular HGB CONC 35.6 g/dL (32.0-36.0); Mean Corpuscular Hemoglobin 31.4 pg (27.0-31.0); Mean Corpuscular Volume 88.4 fl (80.0-94.0); Mean Platelet Volume 11.1 fL (7.4-10.4); Platelet Count 18 thou/uL (130-400); RBC Distribution Width 14.3 % (11.5-14.5); Red Blood Cell (RBC) Count 2.96 mill/uL (4.70-6.10); White Blood Cell (WBC) Count 1.6 thou/uL (4.8-10.8)
[2017-05-17 17:58] LABS: #Lymphocytes 0.6 thou/uL (1.20-3.40); #Monocytes 0.1 thou/uL (0.11-0.59); #Neutrophils 0.9 thou/uL (1.40-6.50); %Basophils 0.8 % (0.0-1.0); %Eosinophils 2.8 % (0.0-10.0); %Lymphocytes 38.8 % (21.0-51.0); %Monocytes 4.1 % (0.0-10.0); %Neutrophils 53.6 % (42.0-75.0); Anisocytosis SLIGHT = 6-15 cells (100X) (0-5/hpf); MDiff Complete? YES; PLT Morphology Comment Appears Decreased
== END 2017-05-17 17:24 | disposition home or self-care (01) ==
LOC: ONC/OP 09:48
PROVIDERS: ATTEND Internal Medicine Hematology & Oncology
PROC: 30233N1 Transfusion of Nonautologous Red Blood Cells into Peripheral Vein, Percutaneous Approach (ICD-10-PCS; principal; 2017-05-17)
DX: C90.02 Multiple myeloma in relapse (principal); D63.0 Anemia in neoplastic disease; D69.59 Other secondary thrombocytopenia; F17.210 Nicotine dependence, cigarettes, uncomplicated; E11.9 Type 2 diabetes mellitus without complications; K21.9 Gastro-esophageal reflux disease without esophagitis; M54.9 Dorsalgia, unspecified; G89.29 Other chronic pain; Z79.4 Long term (current) use of insulin; Z79.82 Long term (current) use of aspirin; Z79.899 Other long term (current) drug therapy; Z88.6 Allergy status to analgesic agent; Z88.5 Allergy status to narcotic agent; Z94.84 Stem cells transplant status; Z95.828 Presence of other vascular implants and grafts
CPT/HCPCS: 36415; 36430; 85025; 86850; 86860; 86870; 86880; 86900; 86901; 86922; 86970; J1642; P9016

== ENCOUNTER 2017-05-21 14:13 | Day surgery (SDC) | payer BC ==
[2017-05-21] MEDS ORDERED: Sodium Chloride 0.9% 20 ML ONE (14:42)
[2017-05-21] MEDS ORDERED: Acetaminophen 500 MG TAB PO SCH (14:45)
[2017-05-21] MEDS ORDERED: diphenhydrAMINE 25 MG CAP PO SCH (14:45)
[2017-05-21 15:40] VITALS: BP 116/74; TEMP 97.8
== END 2017-05-21 15:41 | disposition home or self-care (01) ==
LOC: ONC/OP 14:13
PROVIDERS: ATTEND Internal Medicine Hematology & Oncology
PROC: 30233R1 Transfusion of Nonautologous Platelets into Peripheral Vein, Percutaneous Approach (ICD-10-PCS; principal; 2017-05-21)
DX: D69.6 Thrombocytopenia, unspecified (principal); D64.9 Anemia, unspecified; Z88.5 Allergy status to narcotic agent; Z88.6 Allergy status to analgesic agent
CPT/HCPCS: 36430; 86900; 86901; A4216; J1642; P9035

== ENCOUNTER 2017-05-25 09:05 | Inpatient (IN) | payer BC ==
[2017-05-25 09:56] LABS: Hemoglobin 10.1 g/dL (14.0-18.0); Mean Corpuscular HGB CONC 33.4 g/dL (32.0-36.0); Mean Corpuscular Hemoglobin 29.9 pg (27.0-31.0); Mean Corpuscular Volume 89.4 fl (80.0-94.0); Mean Platelet Volume 10.6 fL (7.4-10.4); Platelet Count 24 thou/uL (130-400); RBC Distribution Width 14.8 % (11.5-14.5); Red Blood Cell (RBC) Count 3.38 mill/uL (4.70-6.10); White Blood Cell (WBC) Count 1.9 thou/uL (4.8-10.8)
[2017-05-25 10:09] LABS: ALT (SGPT) 13 U/L (8-55); AST (SGOT) 26 U/L (5-34); Albumin 3.9 g/dL (3.5-5.0); Alkaline Phosphatase 155 U/L (40-150); Anion Gap 15 mmol/L (10-20); BUN (Urea Nitrogen) 27 mg/dL (8.4-25.7); Bilirubin, Total 0.7 mg/dL (0.2-1.2); Calc. Creatinine Clearance 0 mL/min (70-130); Carbon Dioxide 25 mmol/L (22-29); Chloride 109 mmol/L (98-107); Estimated GFR-MDRD 36; Glucose 105 mg/dL (70-105); Lipase 32 U/L (8-78); Protein, Total 6.9 g/dL (6.0-8.3); Sodium 145 mmol/L (136-145)
[2017-05-25 10:10] LABS: PLT Morphology Comment Appears Decreased
[2017-05-25 10:13] LABS: Calcium 14.8 mg/dL (7.8-10.44)
[2017-05-25] MEDS ORDERED: Ondansetron HCl/PF 4 MG/2 ML Vial ONE (10:16)
--- NOTE | 2017-05-25 10:22 | CT ---
CT BRAIN WITHOUT CONTRAST: Date: 05/25/17 HISTORY: Altered mental status, multiple myeloma. FINDINGS: Comparison made with exam of 05/04/14. No evidence of acute infarct, hemorrhage, midline shift, or abnormal extra-axial fluid collections ar e seen. The ventricular size is normal and the basilar cisterns are patent. The bony calvarium is int act. There is a small bony osteoma in the left ethmoid air cells. The paranasal sinuses and mastoid a ir cells are otherwise well aerated. IMPRESSION: No CT evidence of acute intracranial process. POS: [facility]
--- NOTE | 2017-05-25 10:57 | CT ---
CT ABDOMEN AND PELVIS WITHOUT CONTRAST: (STONE PROTOCOL) DATE: 05/25/17 HISTORY: Abdominal pain. History of multiple myeloma, chronic renal disease. COMPARISON: CT dated 05/04/14. FINDINGS: There are mild atelectatic changes in the lung bases. No significant pericardial effusion. There is a left pericardiophrenic enlarged lymph node measuring up to 1.5 cm. No nephroureterolithiasis or hydroureteronephrosis. No secondary evidence of recently passed stone. M ultiple hypodensities are present throughout the left kidney. There is a punctate intraparenchymal ca lcification interpolar left kidney which may be within a cyst or within the parenchyma itself. Noncontrast evaluation of the solid organs are unremarkable. The liver, gallbladder, pancreas, and sp drake are unremarkable. No dilated loops of large or small bowel. Pancreas is visualized and is normal . There is extensive lytic foci throughout the skeleton consistent with patient's history of myeloma. T here is a soft tissue mass anterior left seventh rib. This causes large erosion without pathologic fr acture. It measures about 4.5 x 2.7 x 4.2 cm. There is a spine compression fracture at T11 and T8. Fracture worsened and/or new from the comparison examination. Multiple old right-sided rib fractures. IMPRESSION: 1. No nephroureterolithiasis or hydroureteronephrosis. No secondary evidence of recently passed ston e. 2. Progression of myeloma with multiple rib fractures, as well as large osteolytic soft tissue lesio n anterior left seventh rib. 3. New left pericardiophrenic lymph node. 4. Within the limits of this noncontrast examination, no acute inflammatory process within the abdom en or pelvis. POS: [facility]
[2017-05-25 11:24] LABS: Bilirubin Negative (Negative); Blood, Urine Large (Negative); Clarity CLEAR (Clear); Glucose, Urine (Dipstick) Negative (Negative); Leukocyte Negative (Negative); Nitrite Negative (Negative); Protein, Urine (Dipstick) 100 mg/dL (Neg-Trace); Specific Gravity, Urine 1.017 (1.002-1.036); Urobilinogen 0.2 mg/dL (0.2-1.0); pH, Urine 6.5 (5.0-9.0)
[2017-05-25 11:31] LABS: Bacteria/HPF None Seen HPF (None Seen); Hyaline Casts/LPF 0-3 HYALINE CAST LPF (0-3 Hyaline); Pathc Cast-AUWi Flag 0.27 (0-2.49); RBC/HPF GREATER THAN 50-TNTC HPF (0-3); Squamous Epithelial 0-3 HPF (0-3); WBC/HPF 0-3 HPF (0-3)
--- NOTE | 2017-05-25 12:35 | HP ---
PRIMARY CARE PHYSICIAN: Dr. Enrique Nobles. REASON FOR ADMISSION: Hypercalcemia of malignancy, abdominal pain. HISTORY OF PRESENT ILLNESS: A 56-year-old male who has underlying kappa chain multi ple myeloma that was diagnosed when he presented with kidney failure. Subsequently, he also had stem cell transplantation and he was in remission until middle of last year and then he had relapse of mu ltiple myeloma. When he had kidney failure at that time, he was on short period of dialysis, but sin ce then he is not any more on dialysis. He is making good amount of urine. When he had relapse of m ultiple myeloma, he was getting chemotherapy through [facility]. This patient presented to emergency room with complaint of abdominal pain, constipation and feeling w eak. He was also not thinking properly and he appeared by himself altered mental status. He denies any vomiting or diarrhea. He denies any fever or chills. He denies any flu-like illness. He was fe eling thirsty and he was feeling weak. Today in the emergency room, patient had CT of the abdomen and pelvis without contrast, which did not show any stone. The patient was found with progression of multiple myeloma with multiple rib fractu res with a large osteolytic soft tissue lesion anterior left seventh rib. Patient was also found wit h a new left pericardiophrenic lymph node. His CT brain was unremarkable. Routine blood test showed hypercalcemia with calcium of 14.8. This patient also has previous history of hypercalcemia in 04/17 018, at that time level was greater than 17. At that time, Oncology was consulted and patient remain ed in hospital for several days. At this point, we are admitting this patient for hypercalcemia, abdominal pain and constipation. REVIEW OF SYSTEMS: The following complete review of systems was negative, unless otherwise mentioned in the HPI or below: Constitutional: Weight loss or gain, ability to conduct usual activities. Sk in: Rash, itching. Eyes: Double vision, pain. ENT/Mouth: Nose bleeding, neck stiffness, pain, te nderness. Cardiovascular: Palpitations, dyspnea on exertion, orthopnea. Respiratory: Shortness of breath, wheezing, cough, hemoptysis, fever or night sweats. Gastrointestinal: Poor appetite, abdom inal pain, heartburn, nausea, vomiting, constipation, or diarrhea. Genitourinary: Urgency, frequenc y, dysuria, nocturia. Musculoskeletal: Pain, swelling. Neurologic/Psychiatric: Anxiety, depressio n. Allergy/Immunologic: Skin rash, bleeding tendency. Please see my HPI for pertinent positive and negative. All other review of systems reviewed and negative except as mentioned in the HPI. PAST MEDICAL HISTORY: [place] light chain multiple myeloma, diabetes mellitus, chronic kidney disease stage 3, gastroesophageal reflux disease, chronic low back pain. PAST SURGICAL HISTORY: MediPort placement, stem cell transplantation in 2015, right knee surgery. PAST PSYCHIATRIC HISTORY: Reviewed and negative. FAMILY HISTORY: Patient's uncle had unknown type of cancer. SOCIAL HISTORY: Patient is . He has 3 children and lives with his . He has history of 2 5-pack-year smoking. No history of alcohol or other illicit drug abuse. CURRENT HOME MEDICATIONS: Patient did not bring his home medication, but he is on following medicati ons: Aspirin 81 mg p.o. daily, Wallace 10 one or two tablets q.4 hourly p.r.n., Lantus 20 units subcu daily, Protonix 40 mg p.o. daily, MiraLax 17 grams p.o. daily. ALLERGIES: IBUPROFEN. EMERGENCY ROOM COURSE: Patient has received Zofran 4 mg, and IV fluid. PHYSICAL EXAMINATION: VITAL SIGNS: On arrival, blood pressure 110/76, pulse 103, respiratory rate 21, temperature 97.6, sa turation 100% on room air, weight 81.6 kilograms. GENERAL: Patient is currently alert, awake, appears slightly confused and incoherent. No obvious ac [place] distress. HEENT: Normocephalic, atraumatic. Eyes: Pupils round, reactive to light. Extraocular muscles inta ct. ENT: Oropharynx within normal limits. Dry mucous membranes, no oral lesion, no pharyngeal eryt kera, no exudate. NECK: Supple, no JVD, no thyromegaly, no carotid bruit, no jugular venous distention. LUNGS: Clear to auscultation without any rhonchi or rales. No wheeze. CARDIAC: S1, S2 regular. No murmur, no gallop, no rub. ABDOMEN: Soft. Patient does have discomfort on deep palpation, but no peritoneal sign, no guarding, no rigidity, no rebound, no organomegaly, no mass. BACK: Unremarkable, no CVA tenderness. EXTREMITIES: Upper extremity: Passive movement of all joints are normal. Lower extremity: No radha a. Good peripheral pulsation. SKIN: No skin rash. HEMATOLOGICAL: No lymphadenopathy. PSYCHIATRIC: Normal affect. SIGNIFICANT LABS: 1. net repairer showing normal sinus rhythm. 2. Abdomen and Pelvis CT scan did show progression of multiple myeloma with multiple rib fractures a nd osteolytic soft tissue lesion anterior left seventh rib. New left pericardiophrenic lymph node. CT brain based on my review, no acute intracranial process. 3. CBC: WBC 1.9, hemoglobin 10.1, platelets 24. 4. BMP: Sodium 145, potassium 4.0, chloride 109, carbon dioxide 25, anion gap 15, BUN 27, creatinin e 2.30, glucose 105, calcium 14.8. Lactic acid 2.0. 5. LFT: AST is 26, ALT 13, alkaline phosphatase is 155, albumin 3.9, lipase 32. Ammonia 27. Urina lysis microscopic hematuria. ASSESSMENT AND PLAN: 1. Acute metabolic encephalopathy likely due to underlying hypercalcemia. The patient's CT brain is negative and he does not have any focal neurological deficit. Patient does not have any clinical ev idence of infection, most likely given his hypercalcemia that can explain his altered mental status. 2. Hypercalcemia, likely due to underlying progression of multiple myeloma. The patient will be giv en IV fluid with NS and we will also continue with Lasix to prevent fluid overload status and we will monitor renal function. We have given underlying history of multiple myeloma. We will also consult Hematology/Oncology for their opinion. 3. Abdominal pain, constipation and nausea related with hypercalcemia. We will treat underlying pro blem and we will also treat symptomatically for all these symptoms. 4. Chronic kidney disease stage 3. We will monitor renal function while in hospital. Continue IV f luid along with Lasix as part of treatment for post-diuresis for hypercalcemia. 5. Pancytopenia after chemotherapy. We will monitor CBC. Oncology already consulted. 6. Relapse of multiple myeloma on chemotherapy. We will consult Oncology Hematology and further dec ision will defer to them. Microscopic hematuria likely related with hypercalcemia. CT of the abdome n and pelvis did not show any nephrolithiasis. 7. Diabetes type 2. We will continue insulin as per sliding scale per protocol. We will also humberto nue metformin 500 mg p.o. daily. 8. Gastroesophageal reflux. We will continue Protonix 40 mg IV daily. 9. Diabetes type 2. We will continue insulin as per sliding scale protocol along with the Lantus in sulin 20 units subcu daily. We will watch for any hypoglycemia. 10. Chronic constipation. We will continue MiraLax daily. 11. Deep venous thrombosis prophylaxis. No Lovenox because of low platelet count. 12. Gastrointestinal prophylaxis, Protonix 40 mg IV daily. 13. Code status: The patient is FULL CODE. The patient's is surrogate decision maker. Disposition plan based on clinical course. We are expecting patient's stay in hospital more than 2 m idnights. Plan of care discussed with the patient and family member at bedside.
[2017-05-25 13:10] LABS: Band 12 % (5-11); Eosinophils 2 % (0-10); Lymphocytes 62 % (21-51); Monocytes 2 % (0-10); Neutrophil 22 % (42-75); Polychromasia SLIGHT = 2-3 cells (100X) (0-2/hpf)
[2017-05-25 13:11] LABS: MDiff Complete? YES
[2017-05-25] MEDS ORDERED: Mag-Al 1200 mg/1200 mg/30 ML UDCUP PO PRN (13:22)
[2017-05-25] MEDS ORDERED: Benzonatate 100 MG CAP PO PRN (13:22)
[2017-05-25] MEDS ORDERED: Bisacodyl 10 MG SUPP PR SCH (13:22)
[2017-05-25] MEDS ORDERED: Fleet Enema 133 ML BOT PR PRN (13:22)
[2017-05-25] MEDS ORDERED: Artificial Tears 18 DROP/0.9 ML EA EYE PRN (13:22)
[2017-05-25] MEDS ORDERED: Zolpidem Tartrate 5 MG TAB PO PRN (13:22)
[2017-05-25] MEDS ORDERED: Diabetic Tussin 200 MG/10 ML UDCUP PO PRN (13:22)
[2017-05-25] MEDS ORDERED: Ondansetron ODT 4 MG TAB PO PRN (13:22)
[2017-05-25] MEDS ORDERED: Milk Of Magnesia 30 ML UDCUP PO PRN (13:22)
[2017-05-25] MEDS ORDERED: Acetaminophen 325 MG TAB PO PRN (13:22)
[2017-05-25] MEDS ORDERED: Dextrose 50% Abboject 50 ML SYRINGE SLOW IVP PRN (13:22)
[2017-05-25] MEDS ORDERED: Loperamide HCl 2 MG CAP PO PRN ×2 (13:22)
[2017-05-25] MEDS ORDERED: Eucerin (Mineral Oil/Petrolatum,White) 30 gm Jar TOP PRN (13:22)
[2017-05-25] MEDS ORDERED: Chloraseptic Spray 180 ml Bottle PO PRN (13:22)
[2017-05-25] MEDS ORDERED: hydrALAZINE 20 MG/ML VIAL SLOW IVP PRN (13:22)
[2017-05-25] MEDS ORDERED: HumaLOG 300 UNITS/3 ML VIAL SC PRN (13:22)
[2017-05-25] MEDS ORDERED: Dextrose 5% in Water 1,000 ML IV PRN (13:22)
[2017-05-25] MEDS ORDERED: Ondansetron HCl/PF 4 MG/2 ML Vial IVP PRN (13:22)
[2017-05-25] MEDS ORDERED: Loratadine 10 MG TAB PO PRN (13:22)
[2017-05-25] MEDS ORDERED: Sodium Chloride 0.65% Nasal 44 ML BOT EA NARE PRN (13:22)
[2017-05-25] MEDS ORDERED: Senokot 8.6 MG TAB PO PRN (13:22)
[2017-05-25 13:47] VITALS: BMI 24.3
[2017-05-25] MEDS: Sodium Chloride 0.9% 1,000 ML IV SCH ×2 (14:16→20:11)
[2017-05-25] MEDS ORDERED: Zoledronic Acid 3 MG in Sodium Chloride 0.9% 100 ML IVPB SCH (18:15)
[2017-05-25] MEDS: Polyethylene Glycol 3350 17 GM Packet PO SCH (20:11)
[2017-05-25] MEDS: Docusate 100 MG CAP PO SCH (20:11)
[2017-05-26 05:30] LABS: Hemoglobin 8.1 g/dL (14.0-18.0); Mean Corpuscular HGB CONC 33.9 g/dL (32.0-36.0); Mean Corpuscular Hemoglobin 30.1 pg (27.0-31.0); Mean Corpuscular Volume 88.9 fl (80.0-94.0); Platelet Count 16 thou/uL (130-400); RBC Distribution Width 14.5 % (11.5-14.5); Red Blood Cell (RBC) Count 2.68 mill/uL (4.70-6.10); White Blood Cell (WBC) Count 1.7 thou/uL (4.8-10.8)
[2017-05-26 05:42] LABS: Anion Gap 11 mmol/L (10-20); BUN (Urea Nitrogen) 24 mg/dL (8.4-25.7); Calc. Creatinine Clearance 44 mL/min (70-130); Carbon Dioxide 24 mmol/L (22-29); Chloride 114 mmol/L (98-107); Estimated GFR-MDRD 41; Glucose 72 mg/dL (70-105); Potassium 3.9 mmol/L (3.5-5.1); Sodium 145 mmol/L (136-145)
[2017-05-26 05:47] LABS: Calcium 13.6 mg/dL (7.8-10.44)
[2017-05-26 06:13] LABS: Band 3 % (5-11); Lymphocytes 53 % (21-51); MDiff Complete? YES; Monocytes 5 % (0-10); Neutrophil 33 % (42-75); PLT Morphology Comment Appears Decreased; RBC Morphology Normal; Reactive Lymphocytes 6 % (0-10)
[2017-05-26] MEDS: Sodium Chloride 0.9% 1,000 ML IV SCH ×4 (06:37→23:18)
[2017-05-26] MEDS: Polyethylene Glycol 3350 17 GM Packet PO SCH ×2 (08:16→20:33)
[2017-05-26] MEDS: Pantoprazole 40 MG VIAL IVP SCH (08:16)
[2017-05-26] MEDS: Docusate 100 MG CAP PO SCH ×2 (08:16→20:24)
[2017-05-26] MEDS ORDERED: Non-Formulary Item 1 EACH (Insulin Glargine,Hum.Rec.Anlog 20 UNIT) SQ SCH (09:00)
--- NOTE | 2017-05-26 09:18 | PDOC.PN ---
- Subjective Encounter Start Date: 05/26/17 Encounter Start Time: 08:30 -: old records requested/rev Patient seen and examined. No new complaints. No overnight events doing well, more alert, has chronic pain - Objective Resuscitation Status: Resuscitation Status FULL:Full Resuscitation MAR Reviewed: Yes Vital Signs & Weight: Vital Signs (12 hours) Temp Pulse Resp BP BP Pulse Ox 05/26/17 08:11 99.2 F 99 16 104/65 96 05/26/17 04:00 99.1 F 96 22 H 105/70 Weight Weight 169 lb 6 oz I&O: 05/25/17 05/26/17 05/27/17 06:59 06:59 06:59 Intake Total 846 Output Total 750 Balance 96 Result Diagrams: 05/26/17 04:48 05/26/17 04:48 Additional Labs: Accuchecks 05/26/17 05/26/17 05/25/17 06:29 05:37 19:55 POC Glucose 208 H 74 150 H 05/25/17 05/25/17 16:46 16:28 POC Glucose 114 H 62 L EKG Reviewed by me: Yes Phys Exam - Physical Examination Constitutional: NAD HEENT: PERRLA, moist MMs, sclera anicteric Neck: no JVD, supple Respiratory: no wheezing, no rales, no rhonchi Cardiovascular: RRR, no significant murmur, no rub Gastrointestinal: soft, non-tender, no distention, positive bowel sounds Musculoskeletal: no edema, pulses present Neurological: non-focal, normal sensation, moves all 4 limbs Psychiatric: normal affect, A&O x 3 Skin: no rash, normal turgor Dx/Plan (1) Acute metabolic encephalopathy Code(s): G93.41 - METABOLIC ENCEPHALOPATHY Status: Acute (2) Hypercalcemia Code(s): E83.52 - HYPERCALCEMIA Status: Acute Comment: sec to multiple myeloma (3) Multiple myeloma in relapse Code(s): C90.02 - MULTIPLE MYELOMA IN RELAPSE Status: Acute (4) Pancytopenia due to chemotherapy Code(s): D61.810 - ANTINEOPLASTIC CHEMOTHERAPY INDUCED PANCYTOPENIA Status: Acute (5) CKD (chronic kidney disease) stage 3, GFR 30-59 ml/min Code(s): N18.3 - CHRONIC KIDNEY DISEASE, STAGE 3 (MODERATE) Status: Chronic (6) Diabetes type 2, controlled Code(s): E11.9 - TYPE 2 DIABETES MELLITUS WITHOUT COMPLICATIONS Status: Chronic (7) Multiple myeloma Code(s): C90.00 - MULTIPLE MYELOMA NOT HAVING ACHIEVED REMISSION Status: Chronic Qualifiers: Comment: prior failed stem cell therapy, now on chemo - Plan cont current plan of care, plan discussed w/ family * Zometa given yesterday * calcium is slowly improving * continue IVF * selected home meds * pain control * ambulate as tolerated * discussed with family bedside * oncology following * repeat labs tomorrow. Review of Systems - Review of Systems ENT: negative: Ear Pain, Ear Discharge, Nose Pain, Nose Discharge, Nose Congestion, Mouth Pain, Mouth Swelling, Throat Pain, Throat Swelling, Other Respiratory: negative: Cough, Dry, Shortness of Breath, Hemoptysis, SOB with Excertion, Pleuritic Pain, Sputum, Wheezing Cardiovascular: negative: chest pain, palpitations, orthopnea, paroxysmal nocturnal dyspnea, edema, light headedness, other Gastrointestinal: negative: Nausea, Vomiting, Abdominal Pain, Diarrhea, Constipation, Melena, Hematochezia, Other Genitourinary: negative: Dysuria, Frequency, Incontinence, Hematuria, Retention , Other Musculoskeletal: negative: Neck Pain, Shoulder Pain, Arm Pain, Back Pain, Hand Pain, Leg Pain, Foot Pain, Other Skin: negative: Rash, Lesions, Diego, Bruising, Other - Medications/Allergies Allergies/Adverse Reactions: Allergies Allergy/AdvReac Type Severity Reaction Status Date / Time ibuprofen Allergy Severe Verified 04/28/17 14:41 morphine Allergy "BAD Verified 04/28/17 14:41 REACTION" Medications: Current Medications Acetaminophen (Tylenol) 650 mg PO Q4H PRN PRN Reason: Headache/Fever or Pain Hydrocodone Bitart/Acetaminophen ([place] 10/325) 1 tab PO Q4HR PRN PRN Reason: Pain Al Hydroxide/Mg Hydroxide (Maalox) 30 ml PO Q6H PRN PRN Reason: Heartburn or Indigestion Albuterol/Ipratropium (Duoneb) 3 ml NEB [id number] PRN PRN Reason: SOB &/or Wheezing Artificial Tears (Tears Naturale) 0 drop EA EYE PRN PRN PRN Reason: Dry Eyes Aspirin (Ecotrin) 81 mg PO DAILY [facility] Benzonatate (Tessalon) 100 mg PO Q4H PRN PRN Reason: Cough Dextrose/Water (Dextrose 50%) 25 gm SLOW IVP PRN PRN PRN Reason: Hypoglycemia Docusate Sodium (Colace) 100 mg PO BID [facility] Last Admin: 05/26/17 08:16 Dose: 100 mg Glucagon (Glucagon) 1 mg IM PRN PRN PRN Reason: Hypoglycemia Guaifenesin (Robitussin Sf) 200 mg PO Q4H PRN PRN Reason: Cough Hydralazine HCl (Apresoline) 10 mg SLOW IVP Q4H PRN PRN Reason: Systolic BP > 180 Sodium Chloride (Normal Saline 0.9%) 1,000 mls @ 125 mls/hr IV .Q8H [facility] Last Admin: 05/26/17 06:37 Dose: 1,000 mls Dextrose/Water (D5w) 1,000 mls @ 0 mls/hr IV .Q0M PRN; As Directed PRN Reason: Hypoglycemia Insulin Human Lispro (Humalog) 0 units SC .MODERATE SLIDING SC PRN PRN Reason: Moderate Correctional Scale Insulin Human Lispro (Humalog) 0 units SC .BEDTIME SLIDING SC PRN PRN Reason: Bedtime Correctional Scale Loperamide HCl (Imodium) 2 mg PO PRN PRN PRN Reason: Diarrhea/Loose Stools Loperamide HCl (Imodium) 2 mg PO PRN PRN PRN Reason: Diarrhea/Loose Stools Loratadine (Claritin) 10 mg PO DAILYPRN PRN PRN Reason: Sinus Symptoms Magnesium Hydroxide (Milk Of Magnesium) 30 ml PO DAILYPRN PRN PRN Reason: Constipation Mineral Oil/White Petrolatum (Eucerin Cream) 0 gm TOP BIDPRN PRN PRN Reason: Dry Skin Non-Formulary Medication (Insulin Glargine,Hum.Rec.Anlog) 20 unit SQ DAILY [facility] Ondansetron HCl (Zofran Odt) 4 mg PO Q6H PRN PRN Reason: Nausea/Vomiting Ondansetron HCl (Zofran) 4 mg IVP Q6H PRN PRN Reason: Nausea/Vomiting Pantoprazole Sodium (Protonix) 40 mg IVP DAILY [facility] Last Admin: 05/26/17 08:16 Dose: 40 mg Phenol (Chloraseptic [place] 180 Ml Bot) 0 ml PO PRN PRN PRN Reason: Sore Throat Polyethylene Glycol (Miralax) 17 gm PO BID [facility] Last Admin: 05/26/17 08:16 Dose: 17 gm Senna (Senokot) 2 tab PO HSPRN PRN PRN Reason: Constipation Sodium Chloride ([place] Nasal [place] 0.65%) 0 ml EA NARE QIDPRN PRN PRN Reason: Nasal Congestion Sodium Chloride (Flush - Normal Saline) 10 ml IVF Q12HR [facility] Last Admin: 05/26/17 08:16 Dose: 10 ml Sodium Chloride (Flush - Normal Saline) 10 ml IVF PRN PRN PRN Reason: Saline Flush Zolpidem Tartrate (Ambien) 5 mg PO HSPRN PRN PRN Reason: Insomnia
[2017-05-26] MEDS ORDERED: Insulin Detemir 100 UNITS/ML 20 UNITS in Pre-Filled Syringe 1 EACH SC SCH (09:30)
[2017-05-26] MEDS: HYDROcodone/Acetaminophen 10/325 mg Tablet PO PRN ×3 (09:32→20:26)
[2017-05-26] MEDS: Aspirin 81 mg Enteric Coated Tablet PO SCH (09:33)
[2017-05-26] MEDS: HumaLOG 300 UNITS/3 ML VIAL SC PRN ×2 (11:25→17:35)
[2017-05-27] MEDS: Sodium Chloride 0.9% 1,000 ML IV SCH ×3 (05:20→17:18)
[2017-05-27] MEDS: HYDROcodone/Acetaminophen 10/325 mg Tablet PO PRN ×4 (05:50→21:47)
[2017-05-27] MEDS: HumaLOG 300 UNITS/3 ML VIAL SC PRN ×2 (05:50→17:20)
[2017-05-27 05:52] LABS: Mean Corpuscular HGB CONC 33.9 g/dL (32.0-36.0); Mean Corpuscular Hemoglobin 30.2 pg (27.0-31.0); Mean Platelet Volume 13.7 fL (7.4-10.4); Platelet Count 11 thou/uL (130-400); RBC Distribution Width 14.6 % (11.5-14.5); Red Blood Cell (RBC) Count 2.65 mill/uL (4.70-6.10); White Blood Cell (WBC) Count 1.4 thou/uL (4.8-10.8)
[2017-05-27 06:22] LABS: Anion Gap 12 mmol/L (10-20); BUN (Urea Nitrogen) 20 mg/dL (8.4-25.7); Calc. Creatinine Clearance 40 mL/min (70-130); Carbon Dioxide 22 mmol/L (22-29); Chloride 113 mmol/L (98-107); Estimated GFR-MDRD 37; Glucose 183 mg/dL (70-105); Potassium 4.1 mmol/L (3.5-5.1); Sodium 143 mmol/L (136-145)
[2017-05-27 06:26] LABS: Band 2 % (5-11); Calcium 12.4 mg/dL (7.8-10.44); Eosinophils 4 % (0-10); Lymphocytes 66 % (21-51); MDiff Complete? YES; Monocytes 2 % (0-10); Neutrophil 26 % (42-75); PLT Morphology Comment Appears Decreased
[2017-05-27] MEDS ORDERED: Bisacodyl 5 MG TAB PO PRN (08:54)
--- NOTE | 2017-05-27 08:57 | PDOC.PN ---
- Subjective Encounter Start Date: 05/27/17 Encounter Start Time: 07:00 Patient seen and examined. No new complaints. No overnight events has constipation, no bleeding from any site - Objective Resuscitation Status: Resuscitation Status FULL:Full Resuscitation MAR Reviewed: Yes Vital Signs & Weight: Vital Signs (12 hours) Temp Pulse Resp BP BP Pulse Ox 05/27/17 08:00 98.8 F 103 H 20 95/59 L 96 05/27/17 04:00 97.7 F 103 H 16 104/61 97 Weight Weight 169 lb 6 oz I&O: 05/26/17 05/27/17 05/28/17 06:59 06:59 06:59 Intake Total 846 1822 2000 Output Total 750 1250 1200 Balance 96 572 800 Result Diagrams: 05/27/17 05:23 05/27/17 05:23 Additional Labs: Accuchecks 05/27/17 05/26/17 05/26/17 05:40 20:25 10:53 POC Glucose 205 H 197 H 222 H Phys Exam - Physical Examination Constitutional: NAD HEENT: PERRLA, moist MMs, sclera anicteric Neck: no JVD, supple Respiratory: no wheezing, no rales, no rhonchi Cardiovascular: RRR, no significant murmur, no rub Gastrointestinal: soft, non-tender, no distention, positive bowel sounds Musculoskeletal: no edema, pulses present Neurological: non-focal, normal sensation, moves all 4 limbs Lymphatic: no nodes Psychiatric: normal affect, A&O x 3 Skin: no rash, normal turgor Dx/Plan (1) Acute metabolic encephalopathy Code(s): G93.41 - METABOLIC ENCEPHALOPATHY Status: Resolved (2) Hypercalcemia Code(s): E83.52 - HYPERCALCEMIA Status: Acute Comment: sec to multiple myeloma (3) Multiple myeloma in relapse Code(s): C90.02 - MULTIPLE MYELOMA IN RELAPSE Status: Acute (4) Pancytopenia due to chemotherapy Code(s): D61.810 - ANTINEOPLASTIC CHEMOTHERAPY INDUCED PANCYTOPENIA Status: Acute (5) CKD (chronic kidney disease) stage 3, GFR 30-59 ml/min Code(s): N18.3 - CHRONIC KIDNEY DISEASE, STAGE 3 (MODERATE) Status: Chronic (6) Diabetes type 2, controlled Code(s): E11.9 - TYPE 2 DIABETES MELLITUS WITHOUT COMPLICATIONS Status: Chronic (7) Multiple myeloma Code(s): C90.00 - MULTIPLE MYELOMA NOT HAVING ACHIEVED REMISSION Status: Chronic Qualifiers: Comment: prior failed stem cell therapy, now on chemo (8) Constipation Code(s): K59.00 - CONSTIPATION, UNSPECIFIED Status: Acute (9) Thrombocytopenia Code(s): D69.6 - THROMBOCYTOPENIA, UNSPECIFIED Status: Acute - Plan cont current plan of care * pt does not want enema, will try various stool softener * platelet infusion will defer to hematology * continue ivf * monitor calcium * overall improving * vitals stable * ambulate as tolerated * medication reviewed as below * symptomatic treatment. Review of Systems - Review of Systems Constitutional: negative: fever, chills, sweats, weakness, malaise, other ENT: negative: Ear Pain, Ear Discharge, Nose Pain, Nose Discharge, Nose Congestion, Mouth Pain, Mouth Swelling, Throat Pain, Throat Swelling, Other Respiratory: negative: Cough, Dry, Shortness of Breath, Hemoptysis, SOB with Excertion, Pleuritic Pain, Sputum, Wheezing Gastrointestinal: Constipation. negative: Nausea, Vomiting, Abdominal Pain, Diarrhea, Melena, Hematochezia, Other Genitourinary: negative: Dysuria, Frequency, Incontinence, Hematuria, Retention , Other Musculoskeletal: negative: Neck Pain, Shoulder Pain, Arm Pain, Back Pain, Hand Pain, Leg Pain, Foot Pain, Other Skin: negative: Rash, Lesions, Diego, Bruising, Other - Medications/Allergies Allergies/Adverse Reactions: Allergies Allergy/AdvReac Type Severity Reaction Status Date / Time ibuprofen Allergy Severe Verified 04/28/17 14:41 morphine Allergy "BAD Verified 04/28/17 14:41 REACTION" Medications: Current Medications Acetaminophen (Tylenol) 650 mg PO Q4H PRN PRN Reason: Headache/Fever or Pain Hydrocodone Bitart/Acetaminophen ([place] 10/325) 1 tab PO Q4H PRN PRN Reason: Pain Last Admin: 05/27/17 05:50 Dose: 1 tab Al Hydroxide/Mg Hydroxide (Maalox) 30 ml PO Q6H PRN PRN Reason: Heartburn or Indigestion Albuterol/Ipratropium (Duoneb) 3 ml NEB [id number] PRN PRN Reason: SOB &/or Wheezing Artificial Tears (Tears Naturale) 0 drop EA EYE PRN PRN PRN Reason: Dry Eyes Aspirin (Ecotrin) 81 mg PO DAILY [facility] Last Admin: 05/26/17 09:33 Dose: 81 mg Benzonatate (Tessalon) 100 mg PO Q4H PRN PRN Reason: Cough Bisacodyl (Dulcolax) 10 mg PO DAILYPRN PRN PRN Reason: Constipation Dextrose/Water (Dextrose 50%) 25 gm SLOW IVP PRN PRN PRN Reason: Hypoglycemia Docusate Sodium (Colace) 100 mg PO BID [facility] Last Admin: 05/26/17 20:24 Dose: 100 mg Glucagon (Glucagon) 1 mg IM PRN PRN PRN Reason: Hypoglycemia Guaifenesin (Robitussin Sf) 200 mg PO Q4H PRN PRN Reason: Cough Hydralazine HCl (Apresoline) 10 mg SLOW IVP Q4H PRN PRN Reason: Systolic BP > 180 Sodium Chloride (Normal Saline 0.9%) 1,000 mls @ 125 mls/hr IV .Q8H [facility] Last Admin: 05/27/17 05:52 Dose: 1,000 mls Dextrose/Water (D5w) 1,000 mls @ 0 mls/hr IV .Q0M PRN; As Directed PRN Reason: Hypoglycemia Insulin Detemir 20 units/ (Miscellaneous Medication) 0.2 mls @ 0 mls/hr SC DAILY [facility] Insulin Human Lispro (Humalog) 0 units SC .MODERATE SLIDING SC PRN PRN Reason: Moderate Correctional Scale Last Admin: 05/27/17 05:50 Dose: 2 unit Insulin Human Lispro (Humalog) 0 units SC .BEDTIME SLIDING SC PRN PRN Reason: Bedtime Correctional Scale Lactulose (Lactulose) gm PO NOW [facility] Loperamide HCl (Imodium) 2 mg PO PRN PRN PRN Reason: Diarrhea/Loose Stools Loperamide HCl (Imodium) 2 mg PO PRN PRN PRN Reason: Diarrhea/Loose Stools Loratadine (Claritin) 10 mg PO DAILYPRN PRN PRN Reason: Sinus Symptoms Magnesium Hydroxide (Milk Of Magnesium) 30 ml PO DAILYPRN PRN PRN Reason: Constipation Mineral Oil/White Petrolatum (Eucerin Cream) 0 gm TOP BIDPRN PRN PRN Reason: Dry Skin Ondansetron HCl (Zofran Odt) 4 mg PO Q6H PRN PRN Reason: Nausea/Vomiting Ondansetron HCl (Zofran) 4 mg IVP Q6H PRN PRN Reason: Nausea/Vomiting Pantoprazole Sodium (Protonix) 40 mg IVP DAILY [facility] Last Admin: 05/26/17 08:16 Dose: 40 mg Phenol (Chloraseptic [place] 180 Ml Bot) 0 ml PO PRN PRN PRN Reason: Sore Throat Polyethylene Glycol (Miralax) 17 gm PO BID [facility] Last Admin: 05/26/17 20:33 Dose: Not Given Senna (Senokot) 2 tab PO HSPRN PRN PRN Reason: Constipation Sodium Chloride ([place] Nasal [place] 0.65%) 0 ml EA NARE QIDPRN PRN PRN Reason: Nasal Congestion Sodium Chloride (Flush - Normal Saline) 10 ml IVF Q12HR [facility] Last Admin: 05/26/17 20:33 Dose: Not Given Sodium Chloride (Flush - Normal Saline) 10 ml IVF PRN PRN PRN Reason: Saline Flush Zolpidem Tartrate (Ambien) 5 mg PO HSPRN PRN PRN Reason: Insomnia
[2017-05-27] MEDS: Docusate 100 MG CAP PO SCH ×2 (10:12→21:52)
[2017-05-27] MEDS: Pantoprazole 40 MG VIAL IVP SCH (10:12)
[2017-05-27] MEDS: Aspirin 81 mg Enteric Coated Tablet PO SCH (10:12)
[2017-05-27] MEDS: Polyethylene Glycol 3350 17 GM Packet PO SCH ×2 (10:13→21:52)
[2017-05-27] MEDS: Insulin Detemir 100 UNITS/ML 20 UNITS in Pre-Filled Syringe 1 EACH SC SCH (10:17)
[2017-05-28] MEDS: HYDROcodone/Acetaminophen 10/325 mg Tablet PO PRN ×3 (01:57→15:12)
[2017-05-28] MEDS: Sodium Chloride 0.9% 1,000 ML IV SCH (02:59)
[2017-05-28 06:34] LABS: Anion Gap 9 mmol/L (10-20); BUN (Urea Nitrogen) 18 mg/dL (8.4-25.7); Calc. Creatinine Clearance 40 mL/min (70-130); Carbon Dioxide 24 mmol/L (22-29); Chloride 114 mmol/L (98-107); Estimated GFR-MDRD 37; Glucose 76 mg/dL (70-105); Potassium 3.8 mmol/L (3.5-5.1); Sodium 143 mmol/L (136-145)
[2017-05-28 06:35] LABS: Hemoglobin 6.9 g/dL (14.0-18.0); Mean Corpuscular HGB CONC 33.8 g/dL (32.0-36.0); Mean Corpuscular Hemoglobin 30.1 pg (27.0-31.0); Mean Platelet Volume 8.4 fL (7.4-10.4); Platelet Count 54 thou/uL (130-400); RBC Distribution Width 14.2 % (11.5-14.5); Red Blood Cell (RBC) Count 2.29 mill/uL (4.70-6.10); White Blood Cell (WBC) Count 1.2 thou/uL (4.8-10.8)
[2017-05-28 06:39] LABS: Calcium 12.1 mg/dL (7.8-10.44)
[2017-05-28] MEDS ORDERED: Sodium Chloride 0.9% 1,000 ML IV SCH (07:00)
[2017-05-28 07:45] LABS: Band 8 % (5-11); Eosinophils 4 % (0-10); Lymphocytes 76 % (21-51); MDiff Complete? YES; Monocytes 4 % (0-10); Neutrophil 8 % (42-75); Ovalocytes SLIGHT = 2-5 cells (100X) (0-1/hpf); PLT Morphology Comment Appears Decreased; Polychromasia SLIGHT = 2-3 cells (100X) (0-2/hpf)
[2017-05-28] MEDS: Insulin Detemir 100 UNITS/ML 20 UNITS in Pre-Filled Syringe 1 EACH SC SCH (08:41)
[2017-05-28] MEDS: Polyethylene Glycol 3350 17 GM Packet PO SCH (08:43)
[2017-05-28] MEDS: Docusate 100 MG CAP PO SCH (08:43)
[2017-05-28] MEDS: Aspirin 81 mg Enteric Coated Tablet PO SCH (08:43)
--- NOTE | 2017-05-28 09:41 | PDOC.PN ---
- Subjective Encounter Start Date: 05/28/17 Encounter Start Time: 09:40 Patient seen and examined. No new complaints. No overnight events - Objective Resuscitation Status: Resuscitation Status FULL:Full Resuscitation MAR Reviewed: Yes Vital Signs & Weight: Vital Signs (12 hours) Temp Pulse Resp BP BP Pulse Ox 05/28/17 08:00 98.2 F 92 16 128/81 98 05/28/17 05:25 99 05/28/17 00:00 98.5 F 98 18 108/57 L 99 Weight Weight 169 lb 6 oz I&O: 05/27/17 05/28/17 05/29/17 06:59 06:59 06:59 Intake Total 1822 6110 Output Total 1250 3400 300 Balance 572 2710 -300 Result Diagrams: 05/28/17 06:08 05/28/17 06:08 Additional Labs: Accuchecks 05/28/17 05/27/17 05/27/17 06:11 21:51 15:21 POC Glucose 90 137 H 244 H 05/27/17 11:06 POC Glucose 217 H Phys Exam - Physical Examination Constitutional: NAD HEENT: PERRLA, moist MMs, sclera anicteric Neck: no JVD, supple Respiratory: no wheezing, no rales, no rhonchi Cardiovascular: RRR, no significant murmur, no rub Gastrointestinal: soft, non-tender, no distention, positive bowel sounds Musculoskeletal: no edema, pulses present Neurological: non-focal, normal sensation, moves all 4 limbs Psychiatric: normal affect, A&O x 3 Skin: no rash, normal turgor Dx/Plan (1) Acute metabolic encephalopathy Code(s): G93.41 - METABOLIC ENCEPHALOPATHY Status: Resolved (2) Hypercalcemia Code(s): E83.52 - HYPERCALCEMIA Status: Acute Comment: sec to multiple myeloma (3) Multiple myeloma in relapse Code(s): C90.02 - MULTIPLE MYELOMA IN RELAPSE Status: Acute (4) Pancytopenia due to chemotherapy Code(s): D61.810 - ANTINEOPLASTIC CHEMOTHERAPY INDUCED PANCYTOPENIA Status: Acute (5) CKD (chronic kidney disease) stage 3, GFR 30-59 ml/min Code(s): N18.3 - CHRONIC KIDNEY DISEASE, STAGE 3 (MODERATE) Status: Chronic (6) Diabetes type 2, controlled Code(s): E11.9 - TYPE 2 DIABETES MELLITUS WITHOUT COMPLICATIONS Status: Chronic (7) Multiple myeloma Code(s): C90.00 - MULTIPLE MYELOMA NOT HAVING ACHIEVED REMISSION Status: Chronic Qualifiers: Comment: prior failed stem cell therapy, now on chemo (8) Constipation Code(s): K59.00 - CONSTIPATION, UNSPECIFIED Status: Acute (9) Thrombocytopenia Code(s): D69.6 - THROMBOCYTOPENIA, UNSPECIFIED Status: Acute - Plan cont current plan of care * reduce ivf * transfuse 2 unit prbc * medication reviewed as below * symptomatic treatment * pt wants to go home later today * he has planned chemotherapy tomorrow * high risk for readmission. Review of Systems - Review of Systems ENT: negative: Ear Pain, Ear Discharge, Nose Pain, Nose Discharge, Nose Congestion, Mouth Pain, Mouth Swelling, Throat Pain, Throat Swelling, Other Respiratory: negative: Cough, Dry, Shortness of Breath, Hemoptysis, SOB with Excertion, Pleuritic Pain, Sputum, Wheezing Cardiovascular: negative: chest pain, palpitations, orthopnea, paroxysmal nocturnal dyspnea, edema, light headedness, other Gastrointestinal: negative: Nausea, Vomiting, Abdominal Pain, Diarrhea, Constipation, Melena, Hematochezia, Other Genitourinary: negative: Dysuria, Frequency, Incontinence, Hematuria, Retention , Other Musculoskeletal: negative: Neck Pain, Shoulder Pain, Arm Pain, Back Pain, Hand Pain, Leg Pain, Foot Pain, Other Skin: negative: Rash, Lesions, Diego, Bruising, Other - Medications/Allergies Allergies/Adverse Reactions: Allergies Allergy/AdvReac Type Severity Reaction Status Date / Time ibuprofen Allergy Severe Verified 04/28/17 14:41 morphine Allergy "BAD Verified 04/28/17 14:41 REACTION" Medications: Current Medications Acetaminophen (Tylenol) 650 mg PO Q4H PRN PRN Reason: Headache/Fever or Pain Hydrocodone Bitart/Acetaminophen ([place] 10/325) 1 tab PO Q4H PRN PRN Reason: Pain Last Admin: 05/28/17 08:42 Dose: 1 tab Al Hydroxide/Mg Hydroxide (Maalox) 30 ml PO Q6H PRN PRN Reason: Heartburn or Indigestion Albuterol/Ipratropium (Duoneb) 3 ml NEB A1HD-MA PRN PRN Reason: SOB &/or Wheezing Artificial Tears (Tears Naturale) 0 drop EA EYE PRN PRN PRN Reason: Dry Eyes Aspirin (Ecotrin) 81 mg PO DAILY [facility] Last Admin: 05/28/17 08:43 Dose: 81 mg Benzonatate (Tessalon) 100 mg PO Q4H PRN PRN Reason: Cough Bisacodyl (Dulcolax) 10 mg PO DAILYPRN PRN PRN Reason: Constipation Dextrose/Water (Dextrose 50%) 25 gm SLOW IVP PRN PRN PRN Reason: Hypoglycemia Docusate Sodium (Colace) 100 mg PO BID [facility] Last Admin: 05/28/17 08:43 Dose: 100 mg Glucagon (Glucagon) 1 mg IM PRN PRN PRN Reason: Hypoglycemia Guaifenesin (Robitussin Sf) 200 mg PO Q4H PRN PRN Reason: Cough Hydralazine HCl (Apresoline) 10 mg SLOW IVP Q4H PRN PRN Reason: Systolic BP > 180 Dextrose/Water (D5w) 1,000 mls @ 0 mls/hr IV .Q0M PRN; As Directed PRN Reason: Hypoglycemia Insulin Detemir 20 units/ (Miscellaneous Medication) 0.2 mls @ 0 mls/hr SC DAILY [facility] Last Admin: 05/28/17 08:41 Dose: 0.2 mls Sodium Chloride (Normal Saline 0.9%) 1,000 mls @ 70 mls/hr IV .[id number] [facility] Insulin Human Lispro (Humalog) 0 units SC .MODERATE SLIDING SC PRN PRN Reason: Moderate Correctional Scale Last Admin: 05/27/17 17:20 Dose: 4 unit Insulin Human Lispro (Humalog) 0 units SC .BEDTIME SLIDING SC PRN PRN Reason: Bedtime Correctional Scale Loperamide HCl (Imodium) 2 mg PO PRN PRN PRN Reason: Diarrhea/Loose Stools Loperamide HCl (Imodium) 2 mg PO PRN PRN PRN Reason: Diarrhea/Loose Stools Loratadine (Claritin) 10 mg PO DAILYPRN PRN PRN Reason: Sinus Symptoms Magnesium Hydroxide (Milk Of Magnesium) 30 ml PO DAILYPRN PRN PRN Reason: Constipation Mineral Oil/White Petrolatum (Eucerin Cream) 0 gm TOP BIDPRN PRN PRN Reason: Dry Skin Ondansetron HCl (Zofran Odt) 4 mg PO Q6H PRN PRN Reason: Nausea/Vomiting Ondansetron HCl (Zofran) 4 mg IVP Q6H PRN PRN Reason: Nausea/Vomiting Pantoprazole Sodium (Protonix) 40 mg PO DAILY [facility] Last Admin: 05/28/17 08:43 Dose: 40 mg Phenol (Chloraseptic [place] 180 Ml Bot) 0 ml PO PRN PRN PRN Reason: Sore Throat Polyethylene Glycol (Miralax) 17 gm PO BID [facility] Last Admin: 05/28/17 08:43 Dose: Not Given Senna (Senokot) 2 tab PO HSPRN PRN PRN Reason: Constipation Sodium Chloride ([place] Nasal [place] 0.65%) 0 ml EA NARE QIDPRN PRN PRN Reason: Nasal Congestion Sodium Chloride (Flush - Normal Saline) 10 ml IVF Q12HR [facility] Last Admin: 05/28/17 08:41 Dose: 10 ml Sodium Chloride (Flush - Normal Saline) 10 ml IVF PRN PRN PRN Reason: Saline Flush Zolpidem Tartrate (Ambien) 5 mg PO HSPRN PRN PRN Reason: Insomnia
--- NOTE | 2017-05-28 09:59 | DIS ---
DATE OF ADMISSION: 05/25/2017 DATE OF DISCHARGE: 05/28/2017 PRIMARY CARE PHYSICIAN: Enrique Nobles M.D. DISCHARGE DISPOSITION: Home. PRIMARY DISCHARGE DIAGNOSES: 1. Hypercalcemia due to multiple myeloma. 2. Acute metabolic encephalopathy, improved. 3. Constipation, resolved. 4. Severe thrombocytopenia, status post platelet transfusion. 5. Severe anemia, status post blood transfusion. SECONDARY DISCHARGE DIAGNOSES: Multiple myeloma in relapse, pancytopenia due to chemotherapy, chroni c kidney disease stage 3, diabetes type 2, multiple myeloma. PRIMARY PROCEDURE/OPERATION: None. RADIOLOGICAL INVESTIGATION: Abdomen and pelvis CT scan, brain CT scan. SIGNIFICANT LABORATORY DATA: WBC 1.2, hemoglobin 6.9, platelet 54. Sodium 143, creatinine 2.26, akanksha cium 12.1. Urinalysis microscopic hematuria. DISCHARGE MEDICATIONS: [place] 10 one or two tablets q.4 hourly p.r.n., Lantus insulin 20 units subcu daily, Protonix 40 mg p.o. daily, and MiraLax 17 grams p.o. daily. CONTRAINDICATIONS: None. CODE STATUS: FULL CODE. INPATIENT METALLURGICAL OR MATERIALS TECHNICIAN: Dr. Gonzales was consulted while in hospital. ALLERGIES: IBUPROFEN and MORPHINE. TEST RESULTS PENDING ON DISCHARGE: None. DISCHARGE PLAN: Post hospital, patient is planned for discharge to home. Patient already has appoin tment for chemotherapy tomorrow with [facility]cology [facility]. HOSPITAL COURSE: A 56-year-old male who has a history of multiple myeloma which he was diagnosed in 2014 when he presented with acute kidney failure. He responded to stem cell transplantation and then he had relapse and he was getting chemotherapy. He was having pancytopenia and at this time he was admitted for abdominal pain and constipation. He was found with hypercalcemia. His calcium level on admission was 14.8 and patient was treated with IV fluid and his calcium level improved to 12.1. He also received 1 dose of Zometa while in hospital. He was also having confusion and he was having acute metabolic encephalopathy from metabolic paramete rs, but his CT brain was normal. He was also complaining of abdominal pain, constipation and that is why CT of the abdomen and pelvis which was done which did not show any new process other than multiple myeloma finding. Patient received platelet transfusion for his platelet count of 11 and after that improved to 54. Hi s hemoglobin today is 6.9 and that is why we are transfusing 2 units of packed red blood cells and th e patient is planned for chemotherapy tomorrow. I explained to him to stay in hospital, so he can ge t chemotherapy tomorrow, but he has to do his personal things and that is why he insisting on going h ome after transfusion later on today. At this point, the patient is medically stable. He is back to normal level on his mental function. He is ambulatory, tolerating p.o. well, and his constipation r esolved. Patient is seen and examined at bedside today. Please see my progress note from today. This patient is at high risk for recurrent admission given his chemotherapy and multiple myeloma in relapse as we ll as recurrent hypercalcemia from the disease process. DISCHARGE MEDICATIONS: [place] 10 one or two tablets q.4h. p.r.n., Lantus insulin 20 units subcu daily , Protonix 40 mg p.o. daily, MiraLax 17 grams p.o. daily. CONTRAINDICATIONS: None. CODE STATUS: Full code.
[2017-05-28] MEDS: HumaLOG 300 UNITS/3 ML VIAL SC PRN ×2 (15:12→17:02)
[2017-05-28 16:49] VITALS: BP 123/84; TEMP 97.7
== END 2017-05-28 17:15 | disposition home or self-care (01) | DRG 640 ==
LOC: ERS 09:05 → 2NO 11:28 → ONC 05-26 12:31
PROVIDERS: ADMIT Internal Medicine; ATTEND Internal Medicine
PROC: 30233N1 Transfusion of Nonautologous Red Blood Cells into Peripheral Vein, Percutaneous Approach (ICD-10-PCS; principal; 2017-05-25)
DX: E83.52 Hypercalcemia (principal); G93.41 Metabolic encephalopathy; D61.810 Antineoplastic chemotherapy induced pancytopenia; C90.02 Multiple myeloma in relapse; D69.6 Thrombocytopenia, unspecified; N18.3 Chronic kidney disease, stage 3 (moderate); E11.22 Type 2 diabetes mellitus with diabetic chronic kidney disease; M48.50XA Collapsed vertebra, not elsewhere classified, site unspecified, initial encounter for fracture; K59.00 Constipation, unspecified; I12.9 Hypertensive chronic kidney disease with stage 1 through stage 4 chronic kidney disease, or unspecified chronic kidney disease; K21.9 Gastro-esophageal reflux disease without esophagitis; F17.210 Nicotine dependence, cigarettes, uncomplicated; R31.29 Other microscopic hematuria; K59.09 Other constipation; D64.9 Anemia, unspecified
CPT/HCPCS: 36415; 36416; 36430; 70450; 74176; 80048; 80053; 81003; 81015; 82140; 83605; 83690; 85025; 86850; 86860; 86870; 86880; 86900; 86901; 86922; 86970; 96374; A4216; C9113; J1642; J1815; J2405; J3489; J7050; P9016; P9035

== ENCOUNTER 2017-06-03 10:15 | Inpatient (IN) | payer BC ==
[2017-06-03] MEDS ORDERED: Acetaminophen 500 MG TAB PO SCH (12:45)
[2017-06-03] MEDS ORDERED: diphenhydrAMINE 50 MG CAP PO SCH (12:45)
--- NOTE | 2017-06-03 14:03 | CON ---
DATE OF CONSULTATION: 06/03/2017 He was sent from the doctor's office with hypotension and low platelet count. He has been in and out of the hospital numerous times. He is a 56-year-old gentleman. He is in [facility] with a low blood pressure, the reason for consultation. HISTORY: He has had nausea and vomiting yesterday and a bout of diarrhea. His blood pressure is 80 systolic. He has known history of multiple myeloma for several years, been receiving chemotherapy. Additionally he smokes up to a pack a day with previous history of pneumonia, but no TB, asthma. Den ies any headache, chest pain, chills, or sweats. PAST MEDICAL HISTORY: Multiple myeloma, diabetes, pain. PAST SURGICAL HISTORY: 1. Access 2. Renal failure. CHRONIC MEDICATIONS: Hydrocodone, insulin 20 units 3 times a day, Protonix, MiraLax. ALLERGIES: MORPHINE, IBUPROFEN. SOCIAL/FAMILY HISTORY: Presently disabled. REVIEW OF SYSTEMS: Ten point negative. Please note I reviewed all his x-rays and his lab personally. He was here, no more than 2 weeks ago where he underwent a CT of his head for altered mental status. CT head was negative. PHYSICAL EXAMINATION: VITAL SIGNS: Blood pressure is 80 systolic, pulse 96, respirations 18, sats 96%. CHEST: Decreased breath sounds without any wheezing. CARDIAC: Normal S1, S2, no gallops. ABDOMEN: Soft, no masses. I am awaiting the results of his lab. Cortisol level has been ordered. IMPRESSION: 1. Hypotension, probably volume depleted. 2. Diabetes. 3. Nausea and vomiting. 4. History of multiple myeloma. 5. Renal failure. PLAN: Volume is being infused. Await cortisol level. Await lab results before transfusion. I will follow while in the [facility]. This is a consultation note, 70 minutes spent, 50% in direct patient care.
[2017-06-03] MEDS ORDERED: Dextrose 50% Abboject 50 ML SYRINGE SLOW IVP PRN (15:51)
[2017-06-03] MEDS ORDERED: Dextrose 5% in Water 1,000 ML IV PRN (15:51)
[2017-06-03] MEDS: HumaLOG 300 UNITS/3 ML VIAL SC PRN (16:30)
--- NOTE | 2017-06-03 16:42 | HP ---
PRIMARY CARE PROVIDER: Enrique Nobles M.D. CHIEF COMPLAINT: Melena. HISTORY OF PRESENT ILLNESS: Mr. Child is a pleasant 56-year-old gentleman who was seen at [facility] on 06/03/2017 after he was sent to the hospital as a direct admission from [facility]. He has a history of multiple myeloma. Please refer to recent history and physical note from 05/26/19 for further information. I discussed his case with his oncologist. Mr. Flaherty has pancytopenia from multiple myeloma and has required frequent blood product transfusions. He presented to the [facility] today reporting melena since yesterday as well as coffee-ground emesis today. To me, he reports the above symptoms. He also endorses generalized weakness. He denies any fevers or chills. He mil es any abdominal pain. He was found to have thrombocytopenia with a platelet count of 8000 as well as a drop in hemoglobin w ith his current hemoglobin at 8.8. He was also found to be hypotensive, with systolic blood pressure in the 80s. He was therefore sent to the hospital. REVIEW OF SYSTEMS: The following complete review of systems was negative, unless otherwise mentioned in the HPI or below: Constitutional: Weight loss or gain, ability to conduct usual activities. Sk in: Rash, itching. Eyes: Double vision, pain. ENT/Mouth: Nose bleeding, neck stiffness, pain, ten derness. Cardiovascular: Palpitations, dyspnea on exertion, orthopnea. Respiratory: Shortness of breath, wheezing, cough, hemoptysis, fever or night sweats. Gastrointestinal: Poor appetite, abdomi nal pain, heartburn, nausea, vomiting, constipation, or diarrhea. Genitourinary: Urgency, frequency , dysuria, nocturia. Musculoskeletal: Pain, swelling. Neurologic/Psychiatric: Anxiety, depression . Allergy/Immunologic: Skin rash, bleeding tendency. PAST MEDICAL HISTORY: Significant for [place] light chain multiple myeloma, diabetes mellitus, chronic kidney disease stage 3, gastroesophageal reflux disease, and chronic low back pain. PAST SURGICAL HISTORY: Significant for MediPort placement, stem cell transplantation in 2015, and ri t knee surgery. FAMILY HISTORY: Significant for cancer in patient's uncle. SOCIAL HISTORY: The patient is . He has history of [id number] smoking. He denies any hist ory of alcohol or recreational drug use. ALLERGIES: IBUPROFEN and MORPHINE. CURRENT MEDICATIONS: Include [place] p.r.n., Lantus insulin 20 units 3 times a day, Protonix 40 mg eryn ly, and MiraLax 17 grams daily. PHYSICAL EXAMINATION: GENERAL: Mr. Child is awake and alert, not in acute distress. VITAL SIGNS: Blood pressure is 95/65, pulse is 103, his breathing at rate of 16, and saturating 98% on 2 liters of oxygen. He is afebrile. EYES: No scleral icterus. The patient has conjunctival pallor. ENT: Moist mucosal membranes, no oropharyngeal erythema or exudates. NECK: Supple, nontender, normal range of movement. Trachea is midline. RESPIRATORY: Accessory muscles of breathing are not active. Chest wall movements are symmetric bila terally. LUNGS: Clear to auscultation without wheeze, rhonchi or crepitations. CARDIOVASCULAR: S1 and S2 are heard, regular and tachycardic. Peripheral pulses palpable. No carot id bruit, no pericardial rub. ABDOMEN: Soft, nontender, bowel sounds are heard, no hepatomegaly, no splenomegaly. NEUROLOGIC: Cranial nerves II-XII intact. Deep tendon reflexes are 2+. LYMPHATIC: No cervical lymphadenopathy. SKIN: No rashes or subcutaneous nodules. PSYCHIATRIC: Normal mood, normal affect. The patient is oriented to person, place, and time. LABORATORY DATA: Mr. Child's labs and investigations were reviewed. [facility], which showed platelet count of 8000 and hemoglobin of 8.8. ASSESSMENT AND PLAN: Mr. Child is a pleasant 46-year-old gentleman who was seen at [facility] on 06/03/2017. His problem list includes: 1. Hypotension: Most likely secondary to gastrointestinal bleed. He will be admitted to the [facility] f or further management. Pulmonary and Critical Care Medicine Service will be consulted. He will rece jose blood products, also vasopressors as needed. 2. Anemia: Most likely secondary to gastrointestinal bleed. He will receive packed RBC transfusion . 3. Thrombocytopenia: He will receive platelet transfusion. 4. Multiple myeloma: Oncology service will be consulted for followup during this hospitalization. 5. Diabetes mellitus: Start Accu-Cheks, insulin sliding scale. 6. Gastrointestinal bleed: We will start patient on Protonix. If he continues to drop hemoglobin a fter a platelet count improves, may need GI service consultation. Many thanks for allowing me to participate in your patient's care. Please feel free to contact me wi th any questions or concerns. LEVEL OF RISK: Moderate. LEVEL OF COMPLEXITY: Moderate.
[2017-06-03] MEDS: Pantoprazole 40 MG VIAL IVP SCH (20:36)
[2017-06-04 05:19] LABS: Anion Gap 10 mmol/L (10-20); BUN (Urea Nitrogen) 42 mg/dL (8.4-25.7); Calc. Creatinine Clearance 36 mL/min (70-130); Calcium 11.9 mg/dL (7.8-10.44); Carbon Dioxide 22 mmol/L (22-29); Chloride 114 mmol/L (98-107); Estimated GFR-MDRD 33; Glucose 117 mg/dL (70-105); Potassium 3.5 mmol/L (3.5-5.1); Sodium 142 mmol/L (136-145)
[2017-06-04 05:52] LABS: Band 2 % (5-11); Hemoglobin 8.6 g/dL (14.0-18.0); Lymphocytes 66 % (21-51); MDiff Complete? YES; Mean Corpuscular Hemoglobin 30.5 pg (27.0-31.0); Mean Corpuscular Volume 87.1 fl (80.0-94.0); Mean Platelet Volume 8.4 fL (7.4-10.4); Monocytes 1 % (0-10); Neutrophil 20 % (42-75); PLT Morphology Comment Appears Decreased; Platelet Count 47 thou/uL (130-400); RBC Distribution Width 13.5 % (11.5-14.5); RBC Morphology Normal; Reactive Lymphocytes 11 % (0-10); Red Blood Cell (RBC) Count 2.83 mill/uL (4.70-6.10); White Blood Cell (WBC) Count 1.1 thou/uL (4.8-10.8)
[2017-06-04] MEDS ORDERED: PROPOFOL 200 MG/20 ML VIAL ONE (08:14)
--- NOTE | 2017-06-04 08:16 | PRG ---
DATE OF SERVICE: 06/04/2017 This morning he is awake, alert, responsive. PHYSICAL EXAMINATION: VITAL SIGNS: Blood pressure is 90/80, sats 96%, temperature 97. GENERAL: Denied any dizziness, shortness of breath. CHEST: Chest revealed decreased breath sounds, no wheezing. CARDIAC: Normal S1, S2. No gallops. ABDOMEN: Soft. LABORATORY: Cortisol level was 12.7 suggestive his adrenal glands may not be working up to par. His calcium is 11.9, elevated. White count of 1, H&H 8 and 24, platelet count 47, creatinine 2.5. IMPRESSION: 1. Pancytopenia. 2. Elevated calcium. 3. Low cortisol level, adrenal insufficiency. 4. Hypotension. 5. Baseline underlying multiple myeloma. PLAN: He is going to need slow hydration for his hypercalcemia. Await input from Oncology. Starting him on low dose steroids. I will follow while in the [facility].
[2017-06-04] MEDS: Pantoprazole 40 MG VIAL IVP SCH ×2 (08:45→20:59)
[2017-06-04] MEDS: HYDROcodone/Acetaminophen 5/325 mg Tablet PO PRN ×2 (08:46→18:49)
[2017-06-04] MEDS: Sodium Chloride 0.9% 1,000 ML IV SCH ×2 (08:47→18:51)
[2017-06-04 09:12] VITALS: BMI 23.6
--- NOTE | 2017-06-04 10:49 | CON ---
DATE OF CONSULTATION: 06/04/2017 REASON FOR CONSULTATION: Multiple myeloma. HISTORY OF PRESENT ILLNESS: Mr. Flaherty is a pleasant 56-year-old -[place] male well known to our service, who is undergoing treatment with Darzalex for kappa light chain myeloma. He received Darzalex weekly. We are working in conjunction with MD Win who was originally diagnosed with lobo alexander in 2014 and underwent a stem cell transplant. He reoccurred with pancytopenia and has receive d 4 cycles of weekly Darzalex. He presented to the clinic yesterday with weakness and dizziness. He had diarrhea that was black and 2 episodes of coffee ground emesis. On presentation, his blood pres sure was 70s to 80s/40s. He received IV fluids. CBC revealed white count of 3.2. His hemoglobin wa s 8.8 and his platelet count was 8,000. He was admitted for treatment to the IMU. He has received I V fluids, but has not required pressors. He did receive 2 units of packed RBCs and 1 unit of platele ts with improvement in his platelet count. He remains weak. He denies any chest pain or shortness o f breath. He did have one episode of dark stool this morning, but no further episodes of coffee-grou nd emesis. PAST MEDICAL HISTORY: 1. [place] light chain myeloma. 2. Diabetes mellitus 2. 3. Chronic kidney disease. 4. Acid reflux. 5. Chronic hypercalcemia. PAST SURGICAL HISTORY: Stem cell transplant in 2014. ALLERGIES: MOTRIN. HOME MEDICATIONS:1. 1. Hydrocodone p.r.n. 2. Insulin t.i.d. 3. Protonix 40 mg daily. 4. MiraLax p.r.n. FAMILY HISTORY: There is a family history of unknown cancer. SOCIAL HISTORY: He is and has 3 children, lives with his spouse, [id number] history of smo anneliese, no alcohol, no illicit drug use. REVIEW OF SYSTEMS: Twelve point review of systems is negative except for noted in HPI. PHYSICAL EXAMINATION: VITAL SIGNS: Temperature is 98.1, pulse is 98, respiratory rate 17, BP is 83/56, he is 97% on room a ir. GENERAL: Well-developed, well-nourished male in no acute distress. HEENT: Normocephalic, atraumatic. Pupils are equal and reactive to light. NECK: Supple. CARDIOVASCULAR: Regular rate and rhythm. LUNGS: Clear. ABDOMEN: Soft, nontender, bowel sounds are positive. EXTREMITIES: No clubbing, cyanosis or edema. SKIN: No rash. HEMATOLOGICAL: No petechia or purpura. NEUROLOGIC: Nonfocal. PSYCHIATRIC: Patient is oriented and appropriate. PERTINENT LABORATORY DATA AND IMAGING DATA: Current WBCs are 1.1, hemoglobin 8.6, hematocrit 24.6, a nd platelet count is 47,000. Sodium is 142, potassium 3.5, chloride 114, CO2 is 22, BUN is 42, creat inine 2.45, uric acid is 8.7, calcium 11.9, phosphorus 3.5, total bilirubin is 0.4, AST is 19, ALT is 9, alkaline phosphatase is 125, LDH is 397. Serum total protein is 5.5, albumin 3.4, globulin 2.1, and cortisol 12.7. Urine is negative for bacteria. ASSESSMENT: 1. Multiple myeloma on Darzalex chemotherapy. 2. Pancytopenia secondary to myeloma and chemo. 3. Possible gastrointestinal bleed secondary to low platelets. 4. Chronic hypercalcemia. 5. Hypertension. DISCUSSION: The patient's blood pressure is not improved with IV fluids. His calcium remained stabl e at 11.9. His hemoglobin and platelets have improved with transfusion. Unfortunately, he did have melena stool this morning, although it could be from his prior living, we will get GI's opinion. If he continues Protonix, we will hopefully be able to discharge home in the next 24-48 hours. He will follow up with MD Win on 06/17/2016. Thank you for the consult.
[2017-06-04] MEDS: Hydrocortisone Sod Succ/PF 100 mg/2 ml Vial IVP SCH ×2 (12:56→18:52)
--- NOTE | 2017-06-04 16:46 | PDOC.PN ---
- Subjective Encounter Start Date: 06/04/17 Encounter Start Time: 09:40 Pt seen for followup re: GI bleed. No bowel movement yet. Denies chest pain or shortness fo breath. - Objective Resuscitation Status: Resuscitation Status FULL:Full Resuscitation Vital Signs & Weight: Vital Signs (12 hours) Temp Pulse Resp BP BP Pulse Ox 06/04/17 15:12 97.1 F L 97 16 91/56 L 98 06/04/17 10:57 97.2 F L 95 16 77/55 L 99 06/04/17 08:54 97.2 F L 95 16 98 06/04/17 08:53 98.1 F 98 17 83/56 L 97 06/04/17 06:03 96 17 78/51 L 97 06/04/17 05:00 93 16 81/54 L 98 Weight Admit Weight 164 lb Weight 164 lb 7.437 oz I&O: 06/03/17 06/04/17 06/05/17 06:59 06:59 06:59 Intake Total 2074 Output Total 1200 Balance 874 Result Diagrams: 06/04/17 04:53 06/04/17 04:53 Additional Labs: Accuchecks 06/04/17 06/04/17 06/04/17 16:14 10:36 05:31 POC Glucose 378 H 211 H 120 H 06/03/17 20:06 POC Glucose 192 H Phys Exam - Physical Examination Constitutional: NAD HEENT: PERRLA, moist MMs, sclera anicteric, TM's clear conjunctival pallor Neck: no nodes, no JVD, supple, full ROM Respiratory: no wheezing, no rales, no rhonchi, clear to auscultation bilateral Cardiovascular: RRR, no rub Gastrointestinal: soft, non-tender, no distention, positive bowel sounds Musculoskeletal: edema present Neurological: moves all 4 limbs Psychiatric: normal affect, A&O x 3 Dx/Plan (1) GI bleed Code(s): K92.2 - GASTROINTESTINAL HEMORRHAGE, UNSPECIFIED Status: Acute Comment: on PPI. (2) Anemia due to acute blood loss Code(s): D62 - ACUTE POSTHEMORRHAGIC ANEMIA Status: Acute Comment: s/p pRBC transfusion (3) Thrombocytopenia Code(s): D69.6 - THROMBOCYTOPENIA, UNSPECIFIED Status: Chronic Comment: s/p platelet transfusion, improved (4) CKD (chronic kidney disease) stage 3, GFR 30-59 ml/min Code(s): N18.3 - CHRONIC KIDNEY DISEASE, STAGE 3 (MODERATE) Status: Chronic (5) Diabetes type 2, controlled Code(s): E11.9 - TYPE 2 DIABETES MELLITUS WITHOUT COMPLICATIONS Status: Chronic Comment: diet-controlled (6) Multiple myeloma Code(s): C90.00 - MULTIPLE MYELOMA NOT HAVING ACHIEVED REMISSION Status: Chronic Qualifiers: Comment: receiving chemotherapy - Plan * . Review of Systems - Review of Systems Constitutional: negative: fever, chills, sweats, weakness, malaise Respiratory: Wheezing. negative: Cough, Dry, Shortness of Breath, Hemoptysis, SOB with Excertion, Pleuritic Pain, Sputum Cardiovascular: negative: chest pain, palpitations, orthopnea, paroxysmal nocturnal dyspnea, edema, light headedness Gastrointestinal: negative: Nausea, Vomiting, Abdominal Pain, Diarrhea, Constipation, Melena, Hematochezia Genitourinary: Other. negative: Dysuria, Frequency, Incontinence, Hematuria, Retention - Medications/Allergies Allergies/Adverse Reactions: Allergies Allergy/AdvReac Type Severity Reaction Status Date / Time ibuprofen Allergy Severe Verified 04/28/17 14:41 morphine Allergy "BAD Verified 04/28/17 14:41 REACTION" Medications: Current Medications Hydrocodone Bitart/Acetaminophen ([place] 5/325) 1 tab PO Q4H PRN PRN Reason: Pain Last Admin: 06/04/17 08:46 Dose: 1 tab Dextrose/Water (Dextrose 50%) 25 gm SLOW IVP PRN PRN PRN Reason: Hypoglycemia Glucagon (Glucagon) 1 mg IM PRN PRN PRN Reason: Hypoglycemia Hydrocortisone Sodium Succinate (Solu-Cortef) 50 mg IVP Q6HR [facility] Stop: 06/11/17 12:01 Last Admin: 06/04/17 12:56 Dose: 50 mg Dextrose/Water (D5w) 1,000 mls @ 0 mls/hr IV .Q0M PRN; As Directed PRN Reason: Hypoglycemia Sodium Chloride (Normal Saline 0.9%) 1,000 mls @ 70 mls/hr IV .[id number] [facility] Last Admin: 06/04/17 08:47 Dose: 1,000 mls Insulin Human Lispro (Humalog) 0 units SC .MILD SLIDING SCALE PRN PRN Reason: Mild Correctional Scale Last Admin: 06/03/17 16:30 Dose: 6 unit Pantoprazole Sodium (Protonix) 40 mg IVP Q12HR [facility] Last Admin: 06/04/17 08:45 Dose: 40 mg Sodium Chloride (Flush - Normal Saline) 10 ml IVF Q12HR [facility] Last Admin: 06/04/17 08:45 Dose: 10 ml Sodium Chloride (Flush - Normal Saline) 10 ml IVF PRN PRN PRN Reason: Saline Flush Last Admin: 06/04/17 08:46 Dose: 10 ml
[2017-06-04] MEDS: HumaLOG 300 UNITS/3 ML VIAL SC PRN ×2 (16:56→20:59)
--- NOTE | 2017-06-04 17:00 | CON ---
DATE OF CONSULTATION: 06/04/2017 REASON FOR CONSULTATION: Melena, hematemesis. CONSULTING PHYSICIAN: BEATRIS Solis. HISTORY OF PRESENT ILLNESS: The patient is a 56-year-old gentleman with past medical history of diab etes, chronic kidney disease stage 3, GERD, chronic lower back pain and multiple myeloma presenting w ith complaints of melena and hematemesis. He states that he is being treated for his multiple myelom a with Darzalex for which he received his most recent treatment on last Thursday. Along with his treat ments with Darzalex, he is also getting steroid administration at the same time as part of the chemot herapy regimen. In any case, he states he was in his usual state of health until yesterday when he e xperienced acute onset of melenic/black-colored stool. There was semi-solid in consistency yesterday morning. Later in the day, he began to feel increased nausea and vomited a small amount of black, " tobacco-looking" emesis. This prompted him to seek medical attention and was seen in the oncology cl in which then urged for admission for expedited evaluation. While in the hospital, he did have one other further episode of melenic stool this morning and with his significantly reduced H&H and plate let count, was transfused 2 units of PRBCs and 1 unit of platelets. Associated with the above sympto ms, he describes increased lower back pain that has been present for the last 3-4 days for which he h as been taking hydrocodone for the pain. He currently denies taking any NSAIDs for this pain or any other pain. He also describes documented fevers as well as subjective chills; however, he currently denies any abdominal pain, odynophagia, dysphagia or weight loss. Currently lying in bed without any problems or complaints. REVIEW OF SYSTEMS: A 10-category review of systems was obtained with all responses negative except f or the pertinent positives as listed in the HPI. PAST MEDICAL HISTORY: As per HPI. PAST SURGICAL HISTORY: Stem cell transplant in 2015. SOCIAL HISTORY: Denies any alcohol, tobacco or illicit drug use. FAMILY HISTORY: Positive for an unknown cancer (uncle). OUTPATIENT MEDICATIONS: Hydrocodone, insulin t.i.d., Protonix 40 mg daily, MiraLax as needed. ALLERGIES: MOTRIN. PHYSICAL EXAMINATION: VITAL SIGNS: Temperature of 97.1, pulse 97, blood pressure 91/56, respiratory rate 16, satting 98% o n room air. GENERAL: The patient is lying in bed in no acute distress. Alert and oriented x4. HEENT: No JVD noted. NECK: Supple. CARDIOVASCULAR: Regular rate and rhythm with no discernible murmurs, gallops or rubs. RESPIRATORY: Clear to auscultation bilaterally with no discernible wheezes or rales. ABDOMEN: Normoactive bowel sounds, soft, nontender, nondistended. EXTREMITIES: No cyanosis, clubbing or edema. LABORATORY DATA: CBC with a white blood cell count of 1.1, hemoglobin 8.6, hematocrit 24.6, platelet s 47. Chemistry with sodium of 142, potassium 3.5, chloride 114, CO2 of 22, BUN 42, creatinine 2.45. IMAGING STUDIES: No current GI imaging is available for review. ASSESSMENT AND PLAN: The patient is a 56-year-old -[place] male with past medical history of diabetes, chronic kidney disease stage 3, gastroesophageal reflux disease, chronic lower back pain a nd multiple myeloma, currently on chemotherapy, presenting with melena and hematemesis. Gastrointestinal bleeding: The patient is presenting with a recent history of pancytopenia mostly re lated to his multiple myeloma, but now presenting with complaints of GI bleeding, this would manifest in the form of melena x2 and hematemesis x1. He is currently getting chemotherapy with Darzalex in addition to steroid administration, the steroids in which could potentially irritate the lining of th e GI tract and create GI bleeding. He denies any NSAIDs at the current point in time which could pot entially contribute. Differential could also include arteriovenous malformation, Dieulafoy lesion, g astritis, esophagitis and/or extension of multiple myeloma to the GI tract (less likely). RECOMMENDATIONS: 1. We will place the patient n.p.o. now and assess the patient for possible procedure. 2. We will plan for EGD later on today for evaluation of the upper GI tract as a possible source of bleeding. If the bleeding source is not seen in the upper GI tract, we will then consider colonoscop y as part of further evaluation of gastrointestinal bleeding. 3. We will continue patient on pantoprazole 40 mg b.i.d. 4. We will continue to trend H&H and transfuse as necessary to maintain an H&H of 7/21. 5. We will continue to monitor for any additional signs of overt GI bleeding. 6. We will continue to follow. Please call with any questions.
[2017-06-04] MEDS ORDERED: Fluconazole 100 MG TAB PO SCH (18:15)
--- NOTE | 2017-06-04 19:55 | OP ---
DATE OF PROCEDURE: 06/04/2017 PROCEDURE: Esophagogastroduodenoscopy with biopsy and control of hemorrhage. INDICATION FOR PROCEDURE: Melena, hematemesis. DESCRIPTION OF PROCEDURE: After the risks and benefits of the procedure were explained to the patien t including risks of bleeding, infection, perforation, reactions to anesthesia and/or pain, informed consent was obtained. The patient was then taken to the endoscopy suite where deep sedation was admi nistered via propofol and anesthesia support. The standard gastroscope was then introduced into the mouth with intubation of the esophagus, stomach and proximal small intestine with the findings listed below. The patient tolerated the procedure well with no immediate perioperative complications. FINDINGS: Esophagus: Innumerable white plaques measuring 1-2 mm in diameter were seen throughout the proximal and mid esophagus and at times assuming a confluent appearance because of their number. There was no associated increased mucosal erythema associated with all these plaques. These white plaques were t hen biopsied and placed in a specimen jar for evaluation. The mucosa in the distal esophagus appeare d normal. The diaphragmatic pinch and GE junction were both well seen at approximately 41 cm past th e incisors. Stomach: Initially upon entry into the stomach, there was a mild amount of dark red blood seen in th e gastric fundus and cardia; however, with aggressive irrigation and suctioning, there was no abnorma lity seen in the underlying mucosa. The remainder of the stomach, including the distal body, antrum and incisura appeared normal. At the pylorus, there was mildly increased mucosal erythema without an y evidence of erosions, ulcerations or active/recent bleeding. Duodenum: Normal appearing mucosa was seen in the duodenal bulb. However, upon entry into the junct ion between the duodenal bulb and second portion of the duodenum, there was increased mucosal erythem a as well as bright red blood. There was seen oozing from seemingly normal duodenal mucosa. This wa s visualized to be actively bleeding. This lesion was then intervened upon using a 10-[place] bipolar cautery probe with good hemostasis achieved afterwards. The remainder of the small intestine and th e second portion of the duodenum appeared normal without any erosions, ulcerations or active/recent b leeding. IMPRESSION: 1. A 1-2 mm Dieulafoy lesion located in the duodenal sweep, status post bipolar cautery with good he mostasis achieved. 2. No overt evidence of active/recent bleeding seen within the stomach. 3. Innumerable whitish plaques with areas of confluence seen in the proximal midesophagus consistent with Nayely esophagitis. RECOMMENDATIONS: 1. We would continue to trend H&H and transfuse as necessary to maintain an H&H of 10/03. 2. We would continue to clinically monitor the patient for signs of active gastrointestinal bleeding . 3. We would continue the patient on pantoprazole 40 mg b.i.d. in light of active gastrointestinal bl eeding. 4. The patient will need to be monitored in the hospital for at least the next 48 hours for any sign s of rebleeding from the duodenal lesion. 5. I will start the patient on oral fluconazole for treatment of the Nayely esophagitis. 6. We will follow up on biopsies to confirm the diagnosis of Nayely esophagitis.
[2017-06-05] MEDS: Hydrocortisone Sod Succ/PF 100 mg/2 ml Vial IVP SCH ×5 (00:22→23:39)
[2017-06-05] MEDS: HumaLOG 300 UNITS/3 ML VIAL SC PRN ×4 (06:34→21:18)
[2017-06-05 06:52] LABS: Mean Corpuscular HGB CONC 34.4 g/dL (32.0-36.0); Mean Corpuscular Hemoglobin 29.9 pg (27.0-31.0); Mean Corpuscular Volume 86.9 fl (80.0-94.0); Mean Platelet Volume 8.8 fL (7.4-10.4); Platelet Count 26 thou/uL (130-400); RBC Distribution Width 13.7 % (11.5-14.5); Red Blood Cell (RBC) Count 2.66 mill/uL (4.70-6.10); White Blood Cell (WBC) Count 1.1 thou/uL (4.8-10.8)
[2017-06-05 06:59] LABS: Anion Gap 12 mmol/L (10-20); BUN (Urea Nitrogen) 39 mg/dL (8.4-25.7); Calc. Creatinine Clearance 34 mL/min (70-130); Calcium 11.8 mg/dL (7.8-10.44); Carbon Dioxide 18 mmol/L (22-29); Chloride 114 mmol/L (98-107); Estimated GFR-MDRD 32; Glucose 166 mg/dL (70-105); Sodium 140 mmol/L (136-145)
[2017-06-05] MEDS: Pantoprazole 40 MG VIAL IVP SCH ×2 (07:11→21:18)
[2017-06-05] MEDS: HYDROcodone/Acetaminophen 5/325 mg Tablet PO PRN ×2 (07:12→17:33)
[2017-06-05] MEDS: Sodium Chloride 0.9% 1,000 ML IV SCH ×2 (07:15→23:39)
[2017-06-05 08:09] LABS: Lymphocytes 76 % (21-51); MDiff Complete? YES; Monocytes 4 % (0-10); Neutrophil 20 % (42-75); PLT Morphology Comment Appears Decreased; Polychromasia SLIGHT = 2-3 cells (100X) (0-2/hpf)
--- NOTE | 2017-06-05 08:48 | PRG ---
DATE OF SERVICE: 06/05/2017 This morning he is doing better, no pain, no shortness of breath. PHYSICAL EXAMINATION: VITAL SIGNS: Blood pressure is improved 97/54, sats are 98 on room air, temperature 97, pulse 73. CHEST: No wheezing or crackles. CARDIAC: Normal S1, S2, no gallops. ABDOMEN: Soft. LABORATORY: White count 1.1, H&H 23, platelet count 26, creatinine 2.3, BUN 39, calcium 11.8. IMPRESSION: 1. Gastrointestinal bleed, status post cautery 2. Pancytopenia. 3. History of multiple myeloma. 4. Relative adrenal insufficiency. PLAN: The patient appears to have improved from our standpoint of view, continue steroids for his ad renal insufficiency, continue low dose IV fluids. When stable, can be discharged and followed by Oncology.
[2017-06-05] MEDS ORDERED: Fluconazole 100 MG TAB PO SCH ×2 (09:00→14:30)
--- NOTE | 2017-06-05 17:18 | PDOC.PN ---
- Subjective Encounter Start Date: 06/05/17 Encounter Start Time: 09:00 Pt seen for followup re: GI bleed. Feels better. No chest pain or shortness of breath. Sitting in chair. No melena. - Objective Resuscitation Status: Resuscitation Status FULL:Full Resuscitation MAR Reviewed: Yes Vital Signs & Weight: Vital Signs (12 hours) Temp Pulse Resp BP Pulse Ox 06/05/17 16:00 98.8 F 96 20 111/72 100 06/05/17 12:32 98.5 F 97 19 166/76 H 97 06/05/17 11:00 98.1 F 101 H 18 97/68 100 06/05/17 07:20 98.7 F 83 17 98 06/05/17 07:09 98.7 F 83 17 97/54 L 98 Weight Admit Weight 164 lb Weight 164 lb 7.437 oz I&O: 06/04/17 06/05/17 06/06/17 06:59 06:59 06:59 Intake Total 2074 3701 680 Output Total 1200 2000 Balance 874 1701 680 Result Diagrams: 06/05/17 06:43 06/05/17 06:43 Additional Labs: Accuchecks 06/05/17 06/05/17 06/04/17 10:46 05:46 20:41 POC Glucose 307 H 177 H 351 H EKG Reviewed by me: Yes Phys Exam - Physical Examination Constitutional: NAD HEENT: moist MMs Neck: supple Respiratory: clear to auscultation bilateral Cardiovascular: RRR Gastrointestinal: soft, non-tender, positive bowel sounds Neurological: moves all 4 limbs Psychiatric: normal affect Dx/Plan (1) GI bleed Code(s): K92.2 - GASTROINTESTINAL HEMORRHAGE, UNSPECIFIED Status: Acute Comment: Continue PPI, pt had Dielafoy lesion on EGD. (2) Nayely esophagitis Code(s): B37.81 - CANDIDAL ESOPHAGITIS Status: Acute Comment: started on fluconazole (3) Dieulafoy lesion of duodenum Code(s): K31.82 - DIEULAFOY LESION (HEMORRHAGIC) OF STOMACH AND DUODENUM Status: Acute Comment: cauterized (4) Anemia due to acute blood loss Code(s): D62 - ACUTE POSTHEMORRHAGIC ANEMIA Status: Acute Comment: s/p pRBC transfusion (5) Thrombocytopenia Code(s): D69.6 - THROMBOCYTOPENIA, UNSPECIFIED Status: Chronic Comment: s/p platelet transfusion, monitor counts (6) CKD (chronic kidney disease) stage 3, GFR 30-59 ml/min Code(s): N18.3 - CHRONIC KIDNEY DISEASE, STAGE 3 (MODERATE) Status: Chronic (7) Diabetes type 2, controlled Code(s): E11.9 - TYPE 2 DIABETES MELLITUS WITHOUT COMPLICATIONS Status: Chronic Comment: diet-controlled (8) Multiple myeloma Code(s): C90.00 - MULTIPLE MYELOMA NOT HAVING ACHIEVED REMISSION Status: Chronic Qualifiers: Comment: receiving chemotherapy - Plan * . Review of Systems - Review of Systems Respiratory: negative: Cough, Dry, Shortness of Breath, Hemoptysis, SOB with Excertion, Pleuritic Pain, Sputum, Wheezing Cardiovascular: negative: chest pain, palpitations, orthopnea, paroxysmal nocturnal dyspnea, edema, light headedness - Medications/Allergies Allergies/Adverse Reactions: Allergies Allergy/AdvReac Type Severity Reaction Status Date / Time ibuprofen Allergy Severe Verified 04/28/17 14:41 morphine Allergy "BAD Verified 04/28/17 14:41 REACTION" Medications: Current Medications Hydrocodone Bitart/Acetaminophen ([place] 5/325) 1 tab PO Q4H PRN PRN Reason: Pain Last Admin: 06/05/17 07:12 Dose: 1 tab Dextrose/Water (Dextrose 50%) 25 gm SLOW IVP PRN PRN PRN Reason: Hypoglycemia Fluconazole (Diflucan) 200 mg PO DAILY [facility] Stop: 06/24/17 09:01 Last Admin: 06/05/17 07:12 Dose: 200 mg Fluconazole (Diflucan) 200 mg PO .RENAL DOSE? [facility] Glucagon (Glucagon) 1 mg IM PRN PRN PRN Reason: Hypoglycemia Hydrocortisone Sodium Succinate (Solu-Cortef) 50 mg IVP Q6HR [facility] Stop: 06/11/17 12:01 Last Admin: 06/05/17 11:13 Dose: 50 mg Dextrose/Water (D5w) 1,000 mls @ 0 mls/hr IV .Q0M PRN; As Directed PRN Reason: Hypoglycemia Sodium Chloride (Normal Saline 0.9%) 1,000 mls @ 70 mls/hr IV .[id number] [facility] Last Admin: 06/05/17 07:15 Dose: 1,000 mls Insulin Human Lispro (Humalog) 0 units SC .MILD SLIDING SCALE PRN PRN Reason: Mild Correctional Scale Last Admin: 06/05/17 11:14 Dose: 5 unit Pantoprazole Sodium (Protonix) 40 mg IVP Q12HR [facility] Last Admin: 06/05/17 07:11 Dose: 40 mg Sodium Chloride (Flush - Normal Saline) 10 ml IVF Q12HR [facility] Last Admin: 06/05/17 07:13 Dose: 10 ml Sodium Chloride (Flush - Normal Saline) 10 ml IVF PRN PRN PRN Reason: Saline Flush Last Admin: 06/04/17 08:46 Dose: 10 ml
--- NOTE | 2017-06-06 00:42 | PRG ---
DATE OF SERVICE: 06/05/2017 SUBJECTIVE: Mr. Child has had no further bleeding. He underwent upper endoscopy yesterday with ca utery of a Dieulafoy lesion. Biopsies are pending. He has had no further bleeding. He had one stoo l today which is melenic but it was not bright red blood, which has been notable for previous study. There is questionable Nayely of the esophagus, so biopsies were taken. MEDICATIONS: He is on hydrocodone, Solu-Cortef, Protonix. OBJECTIVE: VITAL SIGNS: Temperature is 98.5, pulse 97, blood pressure 160/75, . ABDOMEN: Soft, nontender. LABORATORY STUDIES: Hemoglobin is 8, white count is 1.1, platelet count 26,000. ASSESSMENT: Gastrointestinal bleed from a Dieulafoy, resolved. RECOMMENDATIONS: 1. Advance diet as tolerated. 2. Change to p.o. PPI tomorrow. 3. If no further bleeding, can be discharged in the morning. If positive Nayely biopsies, he needs to be started on Diflucan. Dr. Choudhary is on-call over the week end.
[2017-06-06 05:28] LABS: Anion Gap 10 mmol/L (10-20); BUN (Urea Nitrogen) 36 mg/dL (8.4-25.7); Calc. Creatinine Clearance 35 mL/min (70-130); Calcium 11.8 mg/dL (7.8-10.44); Carbon Dioxide 20 mmol/L (22-29); Chloride 111 mmol/L (98-107); Estimated GFR-MDRD 32; Glucose 236 mg/dL (70-105); Sodium 137 mmol/L (136-145)
[2017-06-06 05:44] LABS: Hemoglobin 7.4 g/dL (14.0-18.0); Hypochromia MODERATE=16-30 cells (100X) (0-5/hpf); Lymphocytes 60 % (21-51); MDiff Complete? YES; Mean Corpuscular HGB CONC 34.9 g/dL (32.0-36.0); Mean Corpuscular Volume 88.9 fl (80.0-94.0); Mean Platelet Volume 10.6 fL (7.4-10.4); Monocytes 4 % (0-10); Neutrophil 36 % (42-75); PLT Morphology Comment Appears Decreased; Platelet Count 17 thou/uL (130-400); RBC Distribution Width 13.6 % (11.5-14.5); White Blood Cell (WBC) Count 0.8 thou/uL (4.8-10.8)
[2017-06-06] MEDS: Hydrocortisone Sod Succ/PF 100 mg/2 ml Vial IVP SCH ×2 (06:09→12:21)
[2017-06-06] MEDS: HumaLOG 300 UNITS/3 ML VIAL SC PRN ×2 (06:10→12:24)
[2017-06-06] MEDS ORDERED: HYDROcodone/Acetaminophen 10/325 mg Tablet PO PRN (07:22)
--- NOTE | 2017-06-06 07:30 | PDOC.PN ---
- Subjective Encounter Start Date: 06/06/17 Encounter Start Time: 07:29 Mr. Child was seen today in follow-up of GI bleed and Myeloma. He does not have any complaints. - Objective Resuscitation Status: Resuscitation Status FULL:Full Resuscitation MAR Reviewed: Yes Vital Signs & Weight: Vital Signs (12 hours) Temp Pulse Resp BP Pulse Ox 06/06/17 03:50 97.9 F 80 20 106/51 L 97 06/06/17 01:06 100 06/05/17 23:00 98.0 F 93 20 105/70 99 06/05/17 20:00 97.2 F L 85 20 100 Weight Admit Weight 164 lb Weight 164 lb 7.437 oz I&O: 06/05/17 06/06/17 06/07/17 06:59 06:59 06:59 Intake Total 3701 5370 Output Total 1999 Balance 1701 5370 Result Diagrams: 06/06/17 05:08 06/06/17 05:08 Additional Labs: Accuchecks 06/06/17 06/05/17 06/05/17 05:42 20:08 17:16 POC Glucose 251 H 269 H 297 H 06/05/17 10:46 POC Glucose 307 H Phys Exam - Physical Examination HEENT: PERRLA Respiratory: no wheezing, no rales, no rhonchi, clear to auscultation bilateral Cardiovascular: RRR, no significant murmur, no rub Gastrointestinal: soft, non-tender, positive bowel sounds Musculoskeletal: no edema Dx/Plan (1) Dieulafoy lesion of duodenum Code(s): K31.82 - DIEULAFOY LESION (HEMORRHAGIC) OF STOMACH AND DUODENUM Status: Acute Comment: cauterized (2) Nayely esophagitis Code(s): B37.81 - CANDIDAL ESOPHAGITIS Status: Acute Comment: started on fluconazole (3) GI bleed Code(s): K92.2 - GASTROINTESTINAL HEMORRHAGE, UNSPECIFIED Status: Acute Comment: Continue PPI, pt had Dielafoy lesion on EGD. (4) Pancytopenia due to chemotherapy Code(s): D61.810 - ANTINEOPLASTIC CHEMOTHERAPY INDUCED PANCYTOPENIA Status: Acute (5) Diabetes type 2, controlled Code(s): E11.9 - TYPE 2 DIABETES MELLITUS WITHOUT COMPLICATIONS Status: Chronic Comment: diet-controlled (6) Multiple myeloma Code(s): C90.00 - MULTIPLE MYELOMA NOT HAVING ACHIEVED REMISSION Status: Chronic Qualifiers: Comment: receiving chemotherapy - Plan * GI Bleed- his H&H dropped a little, but this may be due to Myeloma. He denies any dark stools or blood in the stool * Continue PPI * Pancytopenia- due to Myeloma- his platelet count is below 20K, and therefore will transfuse a unit of platelets * He is on Neutropenic precautions * DM- his blood glucose is elevated- will re-start his insulin * Possibly home later today after platelet transfusion.
[2017-06-06] MEDS: Pantoprazole 40 MG VIAL IVP SCH (08:45)
[2017-06-06] MEDS ORDERED: Polyethylene Glycol 3350 17 GM Packet PO SCH (09:00)
[2017-06-06] MEDS ORDERED: Insulin Detemir 100 UNITS/ML 20 UNITS in Pre-Filled Syringe 1 EACH SC SCH (09:00)
[2017-06-06] MEDS ORDERED: Non-Formulary Item 1 EACH (Insulin Glargine,Hum.Rec.Anlog 20 UNIT) SQ SCH (09:00)
[2017-06-06 10:44] VITALS: BP 109/69; TEMP 98.3
--- NOTE | 2017-06-06 13:14 | PRG ---
DATE OF SERVICE: 06/06/2017 SUBJECTIVE: He is doing well with no complaints. OBJECTIVE: VITAL SIGNS: On exam, temperature is 98.3, respiratory rate 18, pulse 100, blood pressure 109/69. HEENT: Unremarkable. NECK: No JVD. CHEST: Clear. CARDIAC: S1 and S2, regular. ABDOMEN: Soft and nontender. EXTREMITIES: No edema. LABORATORY DATA: White blood cell count 0.8, hematocrit 21.3, platelet count 17. Sodium 137, potass ium 4, BUN 36, creatinine 2.5, glucose 236. ASSESSMENT: 1. Pancytopenia. 2. Status post gastrointestinal bleed. 3. History of multiple myeloma. 4. Relative adrenal insufficiency. PLAN: The patient is continuing to receive fluconazole. Continue IV steroids. Follow counts.
--- NOTE | 2017-06-06 16:48 | DIS ---
PRIMARY CARE PHYSICIAN: Dr. Enrique Nobles DATE OF ADMISSION: 06/03/2017 DATE OF DISCHARGE: 06/06/2017 DISCHARGE DISPOSITION: Home. PRIMARY DISCHARGE DIAGNOSES: 1. Gastrointestinal bleed secondary to a Dieulafoy lesion in the duodenum. 2. Nayely esophagitis. 3. [place] light chain multiple myeloma. 4. Diabetes mellitus, type 2. 5. Chronic kidney disease stage 3. 6. Gastroesophageal reflux disease. 7. Chronic low back pain. DISCHARGE MEDICATIONS: Include Diflucan 100 mg every 2 days, [place] 10/325 q.4 hours as needed, Lantu s insulin 20 units with meals, Protonix 40 mg twice a day, MiraLax 17 grams daily. PROCEDURES DONE DURING ADMISSION: The patient had an upper endoscopy with biopsy and control of hemo rrhage. The patient was found to have a 1-2 mm Dieulafoy lesion located in the duodenal sweep, it wa s status post cautery and good hemostasis was achieved. There were numerous whitish plaques in the p roximal to mid esophagus consistent with Nayely esophagitis. CODE STATUS: Full code. ALLERGIES: IBUPROFEN and MORPHINE. HOSPITAL COURSE: Mr. Child is a very pleasant 56-year-old gentleman who was sent over from his onc ologist's office after he reported having dark stools and coffee ground emesis. He was found to be a nemic and was actually pancytopenic. He required 2 units of packed RBC transfusion as well as 2 unit s of platelets. He was seen by Gastroenterology and underwent upper endoscopy demonstrating the Lencho lafoy lesion which was likely the source of the bleeding. This was cauterized and he was placed on P rotonix and was subsequently able to be discharged home with close outpatient followup.
[2017-06-07] MEDS ORDERED: Fluconazole 100 MG TAB PO SCH (09:00)
--- NOTE | 2017-06-09 11:35 | PQF ---
NANDA JOHNSON JR, TONI MD [id number] CLINICAL DOCUMENTATION CLARIFICATION FORM: POST DISCHARGE Addendum to original discharge summary date: 06/06/2017 DATE: 06/09/17 ATTN: Dr. Andrade Please exercise your independent, professional judgment in responding to the clarification form. Clinical indicators are provided on the bottom of this form for your review Please check appropriate box(s): Pancytopenia due to: [ ] Chemotherapy/antineoplastic drugs [X ] Multiple Myeloma [ ] Multiple Myeloma and Chemotherapy [ ] Other (please specify) [ ] Other diagnosis (please specify) [ ] Unable to determine In addition, please specify: Present on Admission (POA): [ X ] Yes [ ] No [ ] Unable to determine For continuity of documentation, please document condition throughout progress notes and discharge summary. Thank You. CLINICAL INDICATORS - SIGNS / SYMPTOMS / LABS (per labs/consultation) Decreased WBC 06/04--1.1. 06/05--1.1. 06/06--0.8. Decreased RBC 06/04--2.83. 06/05--2.66. 06/06--2.40. Decreased H/H 06/04--8.6 and 24.6. 06/05--8.0 and 23.1. 06/06--7.4 and 21.3. Decreased PLT 06/04--47. 3/ 26. 06/06--17. Per 06/04 consult--Pancytopenia secondary to myeloma and chemo. Weakness. RISK FACTORS (per 06/04 consultation) Multiple Myeloma on Darzalex Chemotherapy. TREATMENT: (per transfusion report) Transfusions--2 units PRBC and 2 units Platelets. (This form is maintained as a part of the permanent medical record) 2014 [employer] All Rights Reserved [email or web address] [phone] IVIS
== END 2017-06-06 14:43 | disposition home or self-care (01) | DRG 378 ==
LOC: IMCU/EMU 10:15 → ONC 06-05 18:11
PROVIDERS: ADMIT Internal Medicine; ATTEND Internal Medicine
PROC: 30233N1 Transfusion of Nonautologous Red Blood Cells into Peripheral Vein, Percutaneous Approach (ICD-10-PCS; 2017-06-03)
PROC: 30233R1 Transfusion of Nonautologous Platelets into Peripheral Vein, Percutaneous Approach (ICD-10-PCS; 2017-06-03)
PROC: 0W3P8ZZ Control Bleeding in Gastrointestinal Tract, Via Natural or Artificial Opening Endoscopic (ICD-10-PCS; principal; 2017-06-04)
PROC: 0DB58ZX Excision of Esophagus, Via Natural or Artificial Opening Endoscopic, Diagnostic (ICD-10-PCS; 2017-06-04)
DX: K31.82 Dieulafoy lesion (hemorrhagic) of stomach and duodenum (principal); B37.81 Candidal esophagitis; D61.818 Other pancytopenia; C90.00 Multiple myeloma not having achieved remission; Z94.84 Stem cells transplant status; E11.22 Type 2 diabetes mellitus with diabetic chronic kidney disease; I95.9 Hypotension, unspecified; D62 Acute posthemorrhagic anemia; E27.40 Unspecified adrenocortical insufficiency; K92.2 Gastrointestinal hemorrhage, unspecified; N18.3 Chronic kidney disease, stage 3 (moderate); K21.9 Gastro-esophageal reflux disease without esophagitis; G89.29 Other chronic pain; M54.5 Low back pain; Z88.6 Allergy status to analgesic agent; Z88.5 Allergy status to narcotic agent; Z79.4 Long term (current) use of insulin; Z79.899 Other long term (current) drug therapy; T45.1X5A Adverse effect of antineoplastic and immunosuppressive drugs, initial encounter
CPT/HCPCS: 36416; 36430; 80048; 82274; 82533; 85025; 86850; 86870; 86880; 86900; 86901; 86922; 86970; 88305; 88312; 88313; A4216; C9113; J1610; J1642; J1720; J1815; J2704; P9016; P9035

== ENCOUNTER 2017-06-11 16:10 | Day surgery (SDC) | payer BC ==
[2017-06-11] MEDS ORDERED: diphenhydrAMINE 25 MG CAP PO SCH (16:30)
[2017-06-11] MEDS ORDERED: Acetaminophen 500 MG TAB PO SCH (16:30)
[2017-06-11] MEDS ORDERED: Sodium Chloride 0.9% 40 ML ONE (16:41)
[2017-06-11 17:36] VITALS: BP 110/68; TEMP 98.7
[2017-06-11 18:04] LABS: Hemoglobin 6.8 g/dL (14.0-18.0); Mean Corpuscular HGB CONC 34.3 g/dL (32.0-36.0); Mean Corpuscular Hemoglobin 29.9 pg (27.0-31.0); Mean Platelet Volume 7.7 fL (7.4-10.4); Platelet Count 84 thou/uL (130-400); RBC Distribution Width 13.5 % (11.5-14.5); Red Blood Cell (RBC) Count 2.27 mill/uL (4.70-6.10); White Blood Cell (WBC) Count 0.8 thou/uL (4.8-10.8)
[2017-06-11 19:32] LABS: Band 2 % (5-11); Lymphocytes 92 % (21-51); MDiff Complete? YES; Monocytes 2 % (0-10); Neutrophil 4 % (42-75); PLT Morphology Comment Appears Decreased
== END 2017-06-11 17:42 | disposition home or self-care (01) ==
LOC: ONC/OP 16:10
PROVIDERS: ATTEND Internal Medicine Hematology & Oncology
PROC: 30233R1 Transfusion of Nonautologous Platelets into Peripheral Vein, Percutaneous Approach (ICD-10-PCS; principal; 2017-06-11)
DX: D69.6 Thrombocytopenia, unspecified (principal); E11.22 Type 2 diabetes mellitus with diabetic chronic kidney disease; N18.3 Chronic kidney disease, stage 3 (moderate); D63.1 Anemia in chronic kidney disease; C90.00 Multiple myeloma not having achieved remission; K21.9 Gastro-esophageal reflux disease without esophagitis; Z88.5 Allergy status to narcotic agent; Z88.6 Allergy status to analgesic agent; Z79.4 Long term (current) use of insulin; Z79.899 Other long term (current) drug therapy
CPT/HCPCS: 36430; 85025; 86900; 86901; A4216; J1642; P9035

== ENCOUNTER 2017-06-26 12:57 | Day surgery (SDC) | payer BC ==
[2017-06-26] MEDS ORDERED: Acetaminophen 500 MG TAB PO SCH (13:15)
[2017-06-26] MEDS ORDERED: diphenhydrAMINE 25 MG CAP PO SCH (13:15)
[2017-06-26] MEDS ORDERED: Sodium Chloride 0.9% 20 ML ONE (13:40)
[2017-06-26 14:59] VITALS: BP 117/68; TEMP 97.6
[2017-06-26 15:21] LABS: Hemoglobin 7.7 g/dL (14.0-18.0); Mean Corpuscular Hemoglobin 31.3 pg (27.0-31.0); Mean Corpuscular Volume 89.5 fl (80.0-94.0); Mean Platelet Volume 8.1 fL (7.4-10.4); Platelet Count 58 thou/uL (130-400); RBC Distribution Width 12.9 % (11.5-14.5); Red Blood Cell (RBC) Count 2.45 mill/uL (4.70-6.10); White Blood Cell (WBC) Count 0.3 thou/uL (4.8-10.8)
[2017-06-26 15:40] LABS: PLT Morphology Comment Appears Decreased
== END 2017-06-26 15:10 | disposition home or self-care (01) ==
LOC: ONC/OP 12:57
PROVIDERS: ATTEND Internal Medicine Hematology & Oncology
PROC: 30233R1 Transfusion of Nonautologous Platelets into Peripheral Vein, Percutaneous Approach (ICD-10-PCS; principal; 2017-06-26)
DX: D69.6 Thrombocytopenia, unspecified (principal); C90.00 Multiple myeloma not having achieved remission; E11.22 Type 2 diabetes mellitus with diabetic chronic kidney disease; N18.3 Chronic kidney disease, stage 3 (moderate); D63.1 Anemia in chronic kidney disease; Z88.5 Allergy status to narcotic agent; Z88.6 Allergy status to analgesic agent; Z79.4 Long term (current) use of insulin; Z79.899 Other long term (current) drug therapy
CPT/HCPCS: 36430; 85025; 86900; 86901; A4216; J1642; P9035

== ENCOUNTER 2017-06-28 22:46 | Inpatient (IN) | payer BC ==
[2017-06-28] MEDS ORDERED: Ibuprofen 800 MG TAB ONE (23:15)
[2017-06-28] MEDS ORDERED: Cefepime 2 GM, Syringe 2.5 ML in Sodium Chloride 0.9% 10 ML SLOW IVP SCH (23:45)
[2017-06-28 23:54] LABS: INR-International Normal Ratio 1.7; PTT 51.5 SEC (22.9-36.1); Prothrombin Time 20.8 SEC (12.0-14.7)
[2017-06-29 00:01] LABS: White Blood Cell (WBC) Count 0.2 thou/uL (4.8-10.8)
[2017-06-29] MEDS ORDERED: Acetaminophen 500 MG TAB ONE (00:05)
[2017-06-29 00:07] LABS: ALT (SGPT) 356 U/L (8-55); AST (SGOT) 95 U/L (5-34); Albumin 3.1 g/dL (3.5-5.0); Alkaline Phosphatase 395 U/L (40-150); Anion Gap 17 mmol/L (10-20); BUN (Urea Nitrogen) 34 mg/dL (8.4-25.7); Bilirubin, Total 2.9 mg/dL (0.2-1.2); CK (CPK) 22 U/L (30-200); Calc. Creatinine Clearance 0 mL/min (70-130); Calcium 10.9 mg/dL (7.8-10.44); Carbon Dioxide 17 mmol/L (22-29); Chloride 110 mmol/L (98-107); Estimated GFR-MDRD 30; Globulin 2.7 g/dL (2.4-3.5); Glucose 125 mg/dL (70-105); Magnesium 1.6 mg/dL (1.6-2.6); Potassium 3.3 mmol/L (3.5-5.1); Protein, Total 5.8 g/dL (6.0-8.3); Sodium 141 mmol/L (136-145)
[2017-06-29 00:12] LABS: CKMB 0.2 ng/mL (0-6.6); Troponin I 0.107 ng/mL (< 0.028)
[2017-06-29 00:18] LABS: Hemoglobin 5.3 g/dL (14.0-18.0); Mean Corpuscular HGB CONC 34.4 g/dL (32.0-36.0); Mean Corpuscular Hemoglobin 30.9 pg (27.0-31.0); Mean Corpuscular Volume 89.7 fl (80.0-94.0); Mean Platelet Volume 9.8 fL (7.4-10.4); PLT Morphology Comment Appears Decreased; Platelet Count 20 thou/uL (130-400); RBC Distribution Width 13.2 % (11.5-14.5); RBC Morphology Normal; Red Blood Cell (RBC) Count 1.72 mill/uL (4.70-6.10)
[2017-06-29 00:37] LABS: Bilirubin Negative (Negative); Blood, Urine Trace (Negative); Clarity CLEAR (Clear); Glucose, Urine (Dipstick) Negative (Negative); Leukocyte Negative (Negative); Nitrite Negative (Negative); Protein, Urine (Dipstick) 100 mg/dL (Neg-Trace); Specific Gravity, Urine 1.009 (1.002-1.036)
[2017-06-29 00:39] LABS: Bacteria/HPF None Seen HPF (None Seen); Hyaline Casts/LPF 0-3 HYALINE CAST LPF (0-3 Hyaline); RBC/HPF 0-3 HPF (0-3); Squamous Epithelial 0-3 HPF (0-3); WBC/HPF 0-3 HPF (0-3)
[2017-06-29] MEDS ORDERED: Fentanyl 100 MCG/2 ML VIAL ONE (00:46)
[2017-06-29 03:07] LABS: Lactic Acid 2.9 mmol/L (0.5-2.2)
[2017-06-29 03:15] LABS: Troponin I 0.096 ng/mL (< 0.028)
[2017-06-29 03:23] LABS: Platelet Count 14 thou/uL (130-400); White Blood Cell (WBC) Count 0.1 thou/uL (4.8-10.8)
[2017-06-29 03:29] VITALS: BMI 24.0
[2017-06-29] MEDS ORDERED: Ondansetron HCl/PF 4 MG/2 ML Vial IVP PRN (03:29)
[2017-06-29] MEDS ORDERED: Guaifenesin DM 100-10/5 ML UDCUP PO PRN (03:29)
[2017-06-29] MEDS ORDERED: Ondansetron ODT 4 MG TAB PO PRN (03:29)
[2017-06-29] MEDS ORDERED: Fluconazole In NaCl,Iso-Osm 200 MG in Premix Bag 1 BAG IVPB SCH ×2 (03:29)
[2017-06-29] MEDS ORDERED: Dextrose 5% in Water 1,000 ML IV PRN (03:29)
[2017-06-29] MEDS ORDERED: Dextrose 50% Abboject 50 ML SYRINGE SLOW IVP PRN (03:29)
[2017-06-29 03:33] LABS: ALT (SGPT) 289 U/L (8-55); AST (SGOT) 64 U/L (5-34); Albumin 2.7 g/dL (3.5-5.0); Alkaline Phosphatase 327 U/L (40-150); Anion Gap 15 mmol/L (10-20); BUN (Urea Nitrogen) 36 mg/dL (8.4-25.7); Bilirubin, Total 2.9 mg/dL (0.2-1.2); Calc. Creatinine Clearance 35 mL/min (70-130); Calcium 9.8 mg/dL (7.8-10.44); Carbon Dioxide 16 mmol/L (22-29); Chloride 114 mmol/L (98-107); Estimated GFR-MDRD 32; Globulin 2.3 g/dL (2.4-3.5); Glucose 144 mg/dL (70-105); Magnesium 1.5 mg/dL (1.6-2.6); Potassium 3.6 mmol/L (3.5-5.1); Sodium 141 mmol/L (136-145)
[2017-06-29 03:44] LABS: Hemoglobin A1c 7.1 % (4.0-6.0)
[2017-06-29 03:53] LABS: Hemoglobin 6.3 g/dL (14.0-18.0); Mean Corpuscular HGB CONC 35.2 g/dL (32.0-36.0); Mean Corpuscular Hemoglobin 30.8 pg (27.0-31.0); Mean Corpuscular Volume 87.5 fl (80.0-94.0); Mean Platelet Volume 10.8 fL (7.4-10.4); PLT Morphology Comment Appears Decreased; RBC Distribution Width 13.3 % (11.5-14.5); Red Blood Cell (RBC) Count 2.05 mill/uL (4.70-6.10)
[2017-06-29] MEDS: Sodium Chloride 0.9% 1,000 ML IV SCH ×3 (04:05→19:14)
[2017-06-29] MEDS: Acetaminophen 325 MG TAB PO PRN ×2 (04:13→16:59)
[2017-06-29] MEDS ORDERED: Sodium Bicarbonate 150 MEQ in Dextrose 5% in Water 1,000 ML IV SCH ×2 (04:15)
--- NOTE | 2017-06-29 06:20 | HP ---
PRIMARY CARE PHYSICIAN: Dr. Enrique Nobles PRIMARY ONCOLOGIST: I believe is Dr. Danika Machado or Dr. Duane Rodriguez. CHIEF COMPLAINT: Fevers, myeloma and neutropenia. HISTORY OF PRESENT ILLNESS: Mr. Child is a 56-year-old male with history of multi ple myeloma on chemotherapy, last around 3 days ago, hypertension, diabetes, pancreatitis in the past and CKD. The patient was in his normal state of health. On 06/27/2017 he had a fever that resolved . On 06/28/2017 the fever resolved, it recurred came up at 104.2. He has loose stools and acute and ch ronic back pain. He has had a nonproductive cough and so decided to come to the emergency department for evaluation. The patient has had past admissions for hypercalcemia and blood in his stool. On evaluation in the ER, white count was noted to be 0.2, the patient was febrile at 101.8, we were s ubsequently called for admission for sepsis. The patient had some low blood pressure and elevated he art rate. On arrival to the ICU, he was seen and examined. He denied any pain. No nausea, vomiting, diarrhea or constipation are present. He was tachypneic, felt like his breathing was short and his chest felt a little tight. No pressure and no sharp pains. PAST MEDICAL HISTORY: 1. Hypertension. 2. Multiple myeloma. 3. Diabetes mellitus type 2. 4. History of pancreatitis. 5. Chronic kidney disease stage 3. PAST SURGICAL HISTORY: 1. Right knee scope. 2. Port-A-Cath placement. 3. Stem cell transplant in 2014. HOME MEDICATIONS: 1. Hydrocodone/APAP 5/325 as needed. 2. Lantus 20 units subcu q.a.m. 3. Protonix 40 mg p.o. b.i.d. 4. MiraLax 17 grams daily. 5. Fluconazole 100 mg daily, I am not sure if he is still taking that at present. ALLERGIES: MORPHINE SULFATE and IBUPROFEN. FAMILY HISTORY: Significant for an uncle with cancer, but otherwise negative for clotting or bleedin g disorder. No immune dysfunction, no malignancies. SOCIAL HISTORY: The patient does have a [id number] history of smoking, but quit. Currently negati ve for habits x3. REVIEW OF SYSTEMS: A 10-point review of systems was performed and was negative for all systems excep t as per HPI. PHYSICAL EXAMINATION: VITAL SIGNS: Temperature 101.8, on arrival to the floor 103.5, pulse is in the 120s to 140s, blood p ressure 110/84, respiratory 21, 95% on room air. GENERAL: He is awake. He is alert. He is oriented x3. He is acutely ill, febrile male, looks like he does not feel good. HEENT: Normocephalic, atraumatic. Pupils are equal, round, reactive to light bilaterally, mucous me mbranes are moist. Nasal cannula is in place. There are no visible lesions or thrush. NECK: Supple, without lymphadenopathy, JVD, or thyromegaly. Normal carotid upstrokes without bruits . CHEST: Lungs clear bilaterally, he has some faint bibasilar crackles that seem to clear with deep in spiration. He has no wheezes, no rales, no prolonged expiratory phase. CARDIOVASCULAR: He is tachycardic, irregular. Normal S1, S2. No S3, S4. I cannot appreciate murmu rs. ABDOMEN: Soft, it is nontender, nondistended. He has got good bowel sounds in all 4 quadrants. The re is no rebound, rigidity or guarding. EXTREMITIES: No cyanosis or clubbing with trace to 1+ pedal edema. He has got 1+ dorsalis pedis, an d posterior tibial pulses bilaterally. SKIN: Warm, moist and well perfused. He has no other rashes or lesions. MUSCULOSKELETAL: Normal to inspection. Large joints appeared normal. There is no palpable effusion s. Good range of motion. No inflammation. NEUROLOGIC: Cranial nerves II-XII grossly intact. He has no focal neurologic deficits, normal speec h pattern, and 5/5 strength in all 4 extremities. LABORATORY DATA: Sodium is 141, potassium 3.3, chloride 110, bicarbonate 17 with a repeat down to 16 , BUN of 34, creatinine 2.67, improving this morning, glucose 125 and calcium 10.9. Liver functions showed a total bilirubin elevated at 2.9, alkaline phosphatase 395, AST 95, ALT 356, total protein is a little bit low at 5.8 and albumin is 3.1. CBC showed a white count of 0.2, hemoglobin 5.3 with repeat up to 6.3, hematocrit of 15.4 and platele t count is 20,000. CK normal 22, CK-MB normal at 0.2 and troponin I elevated at 0.107. Lactic acid 3.3, with repeat daniela n to 2.9 and INR 1.7. Urinalysis unremarkable. Chest x-ray showed no acute cardiopulmonary disease. A repeat shows minimal volume overload, but oth erwise clear. CT scan of the abdomen and pelvis showed no acute intra-abdominal pathology. ASSESSMENT AND PLAN: 1. Neutropenic fever. 2. Multiple myeloma on chemotherapy. 3. Hypertension. 4. Diabetes mellitus type 2, insulin-dependent. 5. History of pancreatitis. 6. Chronic kidney disease stage 3. PLAN: 1. The patient will be hydrated with 3 amps of the bicarbonate and sterile water to give us 1 50 mEq solution. Recheck electrolytes. He is currently tachypneic. I think trying to blow off acid . His bicarbonate did drop despite 2.5 liters of fluid resuscitation. Pulmonary Critical Care has jett gasca consulted. 2. History of multiple myeloma on chemotherapy. Consulted Dr. Machado. 3. Diabetes mellitus type 2, on Lantus. We will continue. Give the patient a regular diet. 4. Chronic kidney disease stage 3. Creatinine up from baseline a little bit. We can recheck after hydration. 5. Sepsis. The patient does meet sepsis criteria with a low white blood cell count, tachycardia, fe ocle, and presumed bacterial infection. The patient recently did have some esophagitis, we will humberto nue fluconazole and cefepime for coverage and will follow up on cultures.
--- NOTE | 2017-06-29 08:16 | RAD ---
CHEST 1 VIEW: Date: 06/28/17 HISTORY: Cough. COMPARISON: 05/06/17. FINDINGS: Cardiac silhouette is magnified and upper limits of normal in size. Pulmonary vasculature is upper li mits of normal and accentuated by shallow inspiration. Patient is rotated rightward. No lobar consoli dation. Right subclavian MediPort is in place. Old right rib fractures are evident. nurse monitoring l sebastián overlie the chest. IMPRESSION: Chronic-type findings are stable. POS: OFF
--- NOTE | 2017-06-29 08:20 | RAD ---
PORTABLE SUPINE CHEST: Date: 06/29/17 HISTORY: Dyspnea. Multiple myeloma. FINDINGS: Heart size appears slightly enlarged. Right-sided MediPort catheter is seen. The lungs are clear of a ny infiltrative process. There appears to be some atelectatic change in the lung bases. Fractures of the right ribs are noted. Patient has history of myeloma and these are probably pathologic in nature. IMPRESSION: 1. Borderline to mild cardiomegaly. 2. Subsegmental atelectasis in the lung bases. POS: JUANJOSEH
[2017-06-29] MEDS: Fluconazole In NaCl,Iso-Osm 200 MG in Premix Bag 1 BAG IVPB SCH ×2 (08:43)
[2017-06-29] MEDS: Famotidine 20 MG TAB PO SCH (08:43)
[2017-06-29] MEDS: Insulin Detemir 100 UNITS/ML 20 UNITS in Pre-Filled Syringe 1 EACH SC SCH (08:44)
[2017-06-29] MEDS: Polyethylene Glycol 3350 17 GM Packet PO SCH (08:45)
--- NOTE | 2017-06-29 08:53 | CT ---
PRELIMINARY REPORT/[facility]/EMERGENTY AFTER-HOURS PROCEDURE CT Abdomen and Pelvis Without Intravenous Contrast EXAM DATE/TIME: 06/29/2017 1:01 AM CLINICAL HISTORY: 56 years old, male; Pain; Abdominal pain; Generalized; Patient HX: R/O stone TECHNIQUE: Axial computed tomography images of the abdomen and pelvis without intravenous contrast. Coronal refo rmatted images were created and reviewed. COMPARISON: No relevant prior studies available. FINDINGS: Artifacts: Motion and external artifact limits this study. Lung bases: Mild bilateral lower lobe dependent air space opacity-atelectasis/scarring. ABDOMEN: Liver: Unremarkable. Gallbladder and bile ducts: Unremarkable. No calcified stones. No ductal dilation. Pancreas: Unremarkable. No ductal dilation. Spleen: Unremarkable. No splenomegaly. Adrenals: Unremarkable. No mass. Kidneys and ureters: No evidence of stones within the kidneys, ureters or bladder. No evidence of obs tructive uropathy or obstructive nephropathy. Stomach and bowel: Mild - moderate amount retained stool material throughout areas nondilated colon. No mucosal thickening. Appendix: Visualized portions of appendix appear normal. PELVIS: Bladder: Unremarkable. No stones. Reproductive: Prostate appears within normal limits. ABDOMEN and PELVIS: Intraperitoneal space: Unremarkable. No free air. No significant fluid collection. Bones/joints: Markedly heterogenous density of the osseous structures. Chronic degenerative changes o f the lumbar spine. No acute fracture. No dislocation. Soft tissues: Unremarkable. Vasculature: Chronic atherosclerotic calcification of the vasculature. No abdominal aortic aneurysm. Lymph nodes: Unremarkable. No enlarged lymph nodes. IMPRESSION: 1. Motion and external artifact limits this study. 2. No evidence of stones within the kidneys, ureters or bladder. No evidence of obstructive uropathy or obstructive nephropathy. 3. Findings suggest some degree of constipation. Clinical correlation is recommended. Thank you for allowing us to participate in the care of your patient. Dictated and Authenticated by: Echo Price MD 06/29/2017 1:39 AM Central Time ([place] & [place]) FINAL REPORT EMERGENT AFTER HOURS CT ABDOMEN AND PELVIS PERFORMED WITHOUT CONTRAST ENHANCEMENT: HISTORY: Fever and back pain. Multiple myeloma. COMPARISON: 05/25/17 study. FINDINGS: There are atelectatic changes in the lung bases. There may be chronic interstitial change. as the ch anges are very similar to the previous 05/25/17 study. The liver, spleen, pancreas, and gallbladder regions appear unremarkable given limitations of a nonco ntrast study. Right and left adrenal glands and right and left kidneys are normal in size. There is a hypodensity involving the left kidney, statistically most likely a cyst. There is no renal calculi or evidence f or obstruction. There is no significant periaortic or mesenteric adenopathy. There is an enlarged n ode near the left ventricular apex. It measures 16 mm in size in short axis dimension stable in size as compared to the prior exam. CT OF PELVIS PERFORMED WITHOUT CONTRAST ENHANCEMENT: No adenopathy, mass, or free fluid. OSSEOUS STRUCTURES: Diffuse myelomatous changes are again noted. There are some compression changes of T11 and T7 which are the most notable areas of compression. These appear stable. IMPRESSION: 1. Diffuse lytic bony changes consistent with history of myeloma. 2. Enlarged cardiophrenic lymph node stable. 3. No renal calculi or acute intraabdominal findings. 4. This report is in agreement with the temporary report issued by [facility]. POS: PAT
[2017-06-29] MEDS ORDERED: Hydrocortisone Sod Succ/PF 100 mg/2 ml Vial IVP SCH (09:00)
[2017-06-29] MEDS ORDERED: Non-Formulary Item 1 EACH (Insulin Glargine,Hum.Rec.Anlog 20 UNIT) SQ SCH ×2 (09:00)
[2017-06-29] MEDS ORDERED: Prevnar 13-Val Conj/PF 0.5 ML SYRINGE IM ONE (09:00)
--- NOTE | 2017-06-29 09:59 | CON ---
DATE OF CONSULTATION: 06/29/2017 REASON FOR CONSULTATION: [facility] care. CONSULTING PHYSICIAN: Dr. Mcclure HISTORY OF PRESENT ILLNESS: This is a 56-year-old male who has multiple myeloma who underwent chemot herapy last . He came in last night with a fever of 103. He has been coached to come to the emergency room whenever he has a fever that high. He had a similar hospitalization about a month ag o with neutropenic sepsis. At that time, he was taken care of by my partner, Dr. Reed. The patient states that he has had a cough. He has been congested. He has also had a small amount o f blood in the stool. PAST MEDICAL HISTORY: 1. Multiple myeloma. 2. Hypertension. 3. Diabetes mellitus type 2. 4. Pancreatitis. 5. 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 6. Chronic kidney disease stage 3. PAST SURGICAL HISTORY: 1. He has a right upper quadrant Port-A-Cath in place. 2. Stem cell transplant. 3. Right knee scope. MEDICATIONS PRIOR TO ADMISSION: Hydrocodone, Lantus insulin, Protonix, MiraLax, fluconazole. Of not e, he says he was taking steroids intermittently over the last year including the last time he had ch emotherapy. ALLERGIES: MORPHINE and IBUPROFEN. FAMILY MEDICAL HISTORY: Unremarkable. SOCIAL HISTORY: A [id number] history of smoking, but quit. Does not drink alcohol, does not use i llicit drugs. REVIEW OF SYSTEMS: A 12-point review of systems was negative. PHYSICAL EXAMINATION: VITAL SIGNS: Temperature 99, pulse 128, respirations 21, O2 sat 100%, blood pressure 91/56 but somet imes ranging lower. GENERAL: He appears acutely ill. HEENT: Pupils react. Sclerae icteric. Oropharynx dry. NECK: No JVD. LUNGS: Clear without rhonchi. CARDIAC: S1, S2, tachycardic without murmur, rub or gallop. ABDOMEN: He has slightly tender in the left lower quadrant to deep palpation. No rebound. EXTREMITIES: No clubbing, cyanosis, or edema. Chest x-ray shows no acute infiltrates. The Port-A-Cath is noted on the right side. Abdominal CT sh ows atelectatic changes in both lung bases, diffuse lytic bony lesions consistent with myeloma. No o ther acute findings. LABORATORY DATA: Sodium 141, potassium 3.6, chloride 114, CO2 16, BUN 36, creatinine 2.5, glucose 14 4, AST 64, ALT 289, alkaline phosphatase 327, hemoglobin A1c 7.1. White blood cell count 0.1, hemogl obin 6.3, hematocrit 17.9, platelet count 14. INR 1.7. Urinalysis was essentially negative. ASSESSMENT: 1. Neutropenic sepsis. 2. Status post chemo for multiple myeloma. 3. Questionable relative adrenal insufficiency. 4. Pancytopenia. RECOMMENDATIONS: 1. The patient has been started on broad spectrum IV antibiotics. Since he has recently been in the hospital I will go ahead and add vancomycin. 2. Empirically put on hydrocortisone since he has received steroids in the most recent past and is p robably adrenally insufficient. 3. He apparently has some blood coming, but has to antinuclear antibody screening. 4. Oncology has been consulted. 5. Low threshold for transfer to the CCU if pressure remains low. We will follow with you. The above encompassed 35 minutes critical care time.
[2017-06-29] MEDS ORDERED: Vancomycin HCl 1.25 GM, Admixture Fee 1 EACH in Sodium Chloride 0.9% 250 ML 250 ML IVPB SCH (11:00)
[2017-06-29 12:13] LABS: CKMB 0.5 ng/mL (0-6.6); Troponin I 0.175 ng/mL (< 0.028)
[2017-06-29] MEDS: Hydrocortisone Sod Succ/PF 100 mg/2 ml Vial IVP SCH ×3 (12:55→23:07)
[2017-06-29] MEDS ORDERED: Cefepime 2 GM, Syringe 2.5 ML in Sodium Chloride 0.9% 10 ML SLOW IVP SCH (13:00)
[2017-06-29] MEDS ORDERED: Cefepime 2 GM in Sodium Chloride 0.9% 100 ML IVPB SCH (13:00)
--- NOTE | 2017-06-29 13:17 | PDOC.EVN ---
Event Note - Event Note Event Note: Chart reviewed, pt seen. Will follow.
[2017-06-29] MEDS: HYDROcodone/Acetaminophen 5/325 mg Tablet PO PRN (13:37)
[2017-06-29] MEDS: MEROPENEM 1 GM/50 ML 1 GM in Premix Bag 1 BAG IVPB SCH (13:41)
[2017-06-29] MEDS ORDERED: fentaNYL 75 mcg/hour Patch TD SCH (16:00)
--- NOTE | 2017-06-29 16:29 | CON ---
DATE OF CONSULTATION: 06/29/2017 REASON FOR CONSULTATION: Neutropenia and fever. HISTORY OF PRESENT ILLNESS: A 56-year-old with history of multiple myeloma with prior stem cell transplant about 2 years ago and then relapse and now undergoing a second chemotherapy regimen with carfilzomib and Cytoxan. Had been on Decadron up to 2 weeks prior to this admission. At this time, he presents with fever, worsening dyspnea, cough, mostly dry and neutropenia. Some loose stool. No headaches, no visual symptoms, sore throat, odynophagia, dysphagia. No toothache or back pain. Still chronic smoker status. No abdominal pain, no joint symptoms. The patient's initial evaluation showed temperature 103.5, pulse 120-140, BP 110/84, respiratory rate 21, O2 sat 95%. Pertinent findings on the initial exam with clear lungs except for few basilar crackles. Abdomen is soft and nontender. Irregular heart rate. He had a port which was accessed in the right subclavian location. Initial labs with white cell count 0.2. Not reportable neutrophil percentage accounted. Platelets 20,000, hemoglobin 5.3 and creatinine 2.52, which is above his baseline of 1.78, AST 64, ALT 289, alkaline phosphatase 327, albumin 2.7, globulin 2.3. Urinalysis was essentially normal. Now we have 2/2 sets of blood cultures positive for Enterobacter species, pending susceptibility study results. Currently, Mr. Child is awake. He is in obvious respiratory distress, has a nasal cannula O2 supplementation. He follows commands. PAST MEDICAL HISTORY: Multiple myeloma, prior stem cell transplant, prior chemotherapy now with second regimen after failure of the first, type 2 diabetes , pancreatitis, renal insufficiency stage 3-4, and hypertension. PAST SURGICAL HISTORY: Arthroscopy, Port-A-Cath placement in right subclavian location few months ago. HOME MEDICATIONS: Hydrocodone, Lantus insulin, Protonix, Marlex, fluconazole. ALLERGIES: MORPHINE and IBUPROFEN. CURRENT MEDICATIONS: Cefepime, fluconazole, and vancomycin. SOCIAL HISTORY: Current smoker. FAMILY HISTORY: Noncontributory. PHYSICAL EXAMINATION: VITAL SIGNS: With T-max 103, currently 98.7, blood pressure 102/65, pulse 129, respirations 24, O2 sat 97%. SKIN: With no abnormalities, wide port is accessed. No Bhakta catheter. The patient is voiding spontaneously. No lymphadenopathy. Alopecia. HEENT: Ocular movements are conjugate. Conjunctivae normal. Somewhat pale conjunctivae. Nasal passage is patent. Ear exam normal. Oral cavity with no thrush. Numerous teeth in place with some decay and gum disease. NECK: Supple. LUNGS: With faint basilar crackles in right lung base and scattered faint expiratory wheezing in both right and left hemithorax. HEART: S1, S2, irregular rate. ABDOMEN: Soft, not distended. No ascites. No bladder distention. No organomegaly. GENITOURINARY: No genital abnormalities. EXTREMITIES: Pulses are 1+ in dorsalis pedis. Plantar responses are flexor. No clonus. No joint inflammatory activity. Moves extremities equally. NEUROLOGIC: Cognitive function appears to be intact. LABORATORY DATA AND IMAGING DATA: No labs have been discussed above. White cell count 0.1, hemoglobin 6.3, platelets 14,000. Chest x-ray with borderline cardiomegaly, subsegmental atelectases in lung bases. Abdomen and pelvis CT with limited technical quality due to motion. No obvious abnormalities noted. ASSESSMENT: Multiple myeloma with relapse, currently undergoing carfilzomib which is a proteasome inhibitor plus Cytoxan treatment and had been on Decadron up to 2 weeks before, now presents with Enterobacter species bacteremia. DISCUSSION: Differential diagnosis includes colonization of the port by Enterobacter aerogenes or respiratory tract infection. An intraabdominal inflammatory process appears to be less likely. Patient may have second primary opportunistic process as well. For example, superimposed fungal infection such as pneumocystis or cytomegalovirus viremia. We will check for those. Respiratory virus PCR will be submitted as well. Switch him to meropenem in view of the inducible beta lactamase and Enterobacter species organisms, which may develop resistance to cephalosporins in the middle of treatment. Repeat blood cultures if they still positive, then consider surgical consultation for port removal. The patient has quite a bit of labored breathing and somewhat marginal respiratory situation. If there is further deterioration, may require mechanical ventilation or at least noninvasive ventilation. Cardiomyopathy with raised end diastolic pressure is another possibility. MTDD
[2017-06-29] MEDS ORDERED: Furosemide 20 MG/2 ML VIAL IVP SCH (17:00)
[2017-06-29 17:02] LABS: Base Excess (BEa) -14.1 mEq/L (0 (+/-) 2.5); CO2 Tension 18.6 mmHg (35.0-45.0); Calcium, Ionized 1.3 mmol/L (1.12-1.30); Hematocrit-ABG 22.8 % (42.0-52.0); O2 Tension (PaO2) 83.1 mmHg (80.0-100.0); pH, Arterial 7.35 (7.35-7.45)
[2017-06-29 17:03] LABS: Puncture Site RBA
--- NOTE | 2017-06-29 17:40 | PRG ---
DATE OF SERVICE: 06/29/2017 SUBJECTIVE: Mr. Child began experiencing more respiratory distress. I think from metabolic acidos is. I reexamined him. He did not have much in the way of crackles, but also has not had any signifi cant urine output. His ABG demonstrated pH of 7.35, pCO2 of 18 and pO2 of 83 that was on 2 liters na mario alberto cannula. I attempted to conserve a Bhakta catheter, but could not get a urine bag, but he did sta rt to make urine after the attempted cannulation. I am going to restart his bicarbonate drip. I gave him a low dose of Lasix. I want to move him down to the CCU for further close care and start BiPAP as needed for respiratory assistance.
[2017-06-29] MEDS ORDERED: Pantoprazole 40 MG VIAL IVP SCH ×2 (17:45)
--- NOTE | 2017-06-29 19:19 | CON ---
DATE OF CONSULTATION: 06/29/2017 GI INPATIENT CONSULTATION NOTE REQUESTING PHYSICIAN: Dr. Lopez. REASON FOR CONSULTATION: Anemia, possible melena. HISTORY OF PRESENT ILLNESS: Tomas Child is a 56-year-old gentleman who is under going chemotherapy for multiple myeloma. He has had several recent hospitalizations with neutropenic fever. During recent hospitalization in late May, he was also noted to be significantly anemic an d had some evidence of overt GI bleeding. My partner, Dr. Choudhary, took him for EGD at that time and h e reported an oozing Dieulafoy lesion in the duodenum, which he cauterized successfully. The patient was readmitted to the hospital early this morning with febrile neutropenia. Again, he has been note d to have pancytopenia with WBC 0.1, platelets only 14, hemoglobin initially 5.3 but came up to 6.3 o n its own. He has not yet received platelet and RBC transfusion. His blood cultures already growing Enterobacter species and gram-negative rods and he is being treated with broad spectrum antibiotics. His respiratory status has worsened over the course of the day and he has just been started on BiPA P and is going to be moved to the CCU. He is tachycardic with an irregular rhythm. Nursing reports he has had one bowel movement so far today and this was a well-formed but black stool with a little b it of red streaking. Bhakta catheter placement was attempted and there was blood from the urethra as well. There is no hematemesis. The patient is not complaining of any abdominal pain. REVIEW OF SYSTEMS: Full review of systems including constitutional, head, eyes, ears, nose, throat, GI, , cardiovascular, respiratory, musculoskeletal, and neurologic systems is negative except as no kike in the HPI. PAST MEDICAL HISTORY: Multiple myeloma; prior stem cell transplant; prior chemotherapy, now on secon d regimen; type 2 diabetes; pancreatitis; renal insufficiency stage 3-4; hypertension; arthroscopy; P ort-A-Cath placement in the right subclavian vein. HOME MEDICATIONS: Fluconazole, MiraLax, Protonix, Lantus insulin, hydrocodone. ALLERGIES: MORPHINE and IBUPROFEN. INPATIENT MEDICATIONS: Include Valdez, Pepcid 20 mg daily, fentanyl patch, IV fluconazole, IV Lasix, hydrocortisone 100 mg IV q.6 hours, sliding scale insulin, meropenem 1 gram IV q.12 hours, Zofran p.r .n., Protonix 40 mg p.o. b.i.d., MiraLax 17 grams p.o. daily, Granix, vancomycin 1.25 grams IV daily. He has also received a dose of cefepime. SOCIAL HISTORY: Current smoker. FAMILY HISTORY: Noncontributory. PHYSICAL EXAMINATION: VITAL SIGNS: Temperature 100.3 earlier today, currently, 99.4; pulse 124; blood pressure 110/86; 95% oxygen saturation, on BiPAP; respiratory rate 30 per minute. GENERAL: A 56-year-old gentleman, in some respiratory distress. MENTAL: He is alert and oriented. He is able to nod his head and shake his head to answer questions , but not really verbal due to work of breathing. SKIN: He is a bit pale, no jaundice, no rashes were palpable. EYES: No scleral icterus. Extraocular movements intact. ENT: Mucous membranes moist, no oral lesions. LYMPH: No submandibular, supraclavicular lymphadenopathy. THYROID: Nontender to palpation. HEART: Irregular tachycardia. LUNGS: He is tachypneic, no wheezing. ABDOMEN: Nondistended. Bowel sounds present, nontender to palpation. EXTREMITIES: No peripheral edema. NEUROLOGICAL: Cranial nerves II-XII intact bilaterally. LABORATORY STUDIES: WBC 0.1, hemoglobin 6.3, MCV 87.5, platelets 14. INR 1.7, troponin 0.175. CK-M B 0.5, hemoglobin A1c 7.1. Sodium 141, potassium 3.6, BUN 36, creatinine 2.52, total bilirubin 2.9, alkaline phosphatase 327, AST 64, ALT 289. IMAGING STUDIES: CT of the abdomen and pelvis shows no evidence of obstructive uropathy. There is s ome constipation with moderate amount of retained stool in the areas of the colon; normal-appearing l iver, gallbladder, bile ducts, pancreas and spleen. ASSESSMENT AND PLAN: 1. Pancytopenia, severe, secondary to multiple myeloma and chemotherapy. 2. Possible melena. He had one black stool earlier today. 3. Sepsis, possibly multi-microbial in the context of febrile neutropenia. 4. Recent duodenal Dieulafoy lesion, cauterized by Dr. Choudhary last month. At this point, the patient is critically ill with febrile neutropenia and bacteremia, now worsening o f his respiratory function. It does appear that he has had some overt bleeding from the GI tract, bu t with platelets so low, this is really not surprising. I do not think there is anything to be gaine d by performing endoscopy at this time, and in fact would likely subject him to additional risks of i nfection and inducing new bleeding. Transfusion of RBCs and platelets is planned and I agree with th is. I will write for his PPI to be switched to Protonix IV. We will not plan on any endoscopic inve stigation. GI will follow along. Monitor for any further evidence of overt bleeding.
[2017-06-29] MEDS: Sodium Bicarbonate 100 MEQ in Dextrose 5% in Water 1,000 ML IV SCH ×2 (19:35)
[2017-06-29] MEDS ORDERED: Meropenem 1 GM in Sodium Chloride 0.9% 100 ML IVPB SCH (21:00)
[2017-06-29 22:23] LABS: Anion Gap 25 mmol/L (10-20); BUN (Urea Nitrogen) 49 mg/dL (8.4-25.7); Calc. Creatinine Clearance 25 mL/min (70-130); Calcium 9.8 mg/dL (7.8-10.44); Carbon Dioxide 13 mmol/L (22-29); Chloride 108 mmol/L (98-107); Estimated GFR-MDRD 22; Glucose 91 mg/dL (70-105); Magnesium 1.6 mg/dL (1.6-2.6); Potassium 5.1 mmol/L (3.5-5.1); Sodium 141 mmol/L (136-145)
[2017-06-29] MEDS ORDERED: Furosemide 40 MG/4 ML VIAL SLOW IVP SCH (22:45)
[2017-06-30] MEDS: MEROPENEM 1 GM/50 ML 1 GM in Premix Bag 1 BAG IVPB SCH ×2 (00:17→13:54)
[2017-06-30] MEDS: Sodium Chloride 0.9% 1,000 ML IV SCH ×2 (01:43→02:09)
[2017-06-30] MEDS: Sodium Bicarbonate 100 MEQ in Dextrose 5% in Water 1,000 ML IV SCH ×2 (04:42)
[2017-06-30] MEDS: Hydrocortisone Sod Succ/PF 100 mg/2 ml Vial IVP SCH ×3 (05:05→17:27)
[2017-06-30 06:07] LABS: Hemoglobin 7.2 g/dL (14.0-18.0); Mean Corpuscular HGB CONC 33.6 g/dL (32.0-36.0); Mean Corpuscular Hemoglobin 28.9 pg (27.0-31.0); Mean Corpuscular Volume 86.2 fl (80.0-94.0); Mean Platelet Volume 11.2 fL (7.4-10.4); Platelet Count 28 thou/uL (130-400); RBC Distribution Width 14.3 % (11.5-14.5); Red Blood Cell (RBC) Count 2.49 mill/uL (4.70-6.10); White Blood Cell (WBC) Count 0.2 thou/uL (4.8-10.8)
[2017-06-30 06:30] LABS: ALT (SGPT) 494 U/L (8-55); AST (SGOT) 1032 U/L (5-34); Albumin 2.5 g/dL (3.5-5.0); Alkaline Phosphatase 243 U/L (40-150); Anion Gap 21 mmol/L (10-20); BUN (Urea Nitrogen) 53 mg/dL (8.4-25.7); Bilirubin, Total 4.9 mg/dL (0.2-1.2); Calc. Creatinine Clearance 24 mL/min (70-130); Carbon Dioxide 15 mmol/L (22-29); Chloride 108 mmol/L (98-107); Estimated GFR-MDRD 21; Globulin 2.4 g/dL (2.4-3.5); Glucose 152 mg/dL (70-105); Magnesium 1.5 mg/dL (1.6-2.6); Potassium 4.8 mmol/L (3.5-5.1); Protein, Total 4.9 g/dL (6.0-8.3); Sodium 139 mmol/L (136-145)
[2017-06-30 06:31] LABS: PLT Morphology Comment Appears Decreased
[2017-06-30] MEDS: HumaLOG 300 UNITS/3 ML VIAL SC PRN ×3 (06:39→20:24)
--- NOTE | 2017-06-30 08:27 | PRG ---
DATE OF SERVICE: 06/30/2017 This is a 56-year-old gentleman in the ICU, pancytopenic and presumed sepsis syndrome. He has multip le myeloma. This morning he is awake, responsive. He still has metabolic acidosis with a bicarbonate of 13 yeste rday. He was not placed on BiPAP last night. PHYSICAL EXAMINATION: VITAL SIGNS: His sats are 90% on 2 liters, respirations 19, pulse 90, blood pressure 99/80. CHEST: Chest revealed decreased breath sounds. There is no wheezing or crackles. CARDIAC: Normal S1, S2. No gallops. ABDOMEN: Soft, no masses. His I's and O's are 4035 in, 293 out. White count 0.2, H&H 7 and 20, platelet count is 28, BUN and creatinine 53 and 3.6, bicarbonate is 15, glucose 188. His bilirubin is 4.9. AST and ALT is 10 and 32. IMPRESSION: 1. Multiorgan failure. 2. Pancytopenia. 3. Chronic renal failure. 4. Abnormal liver function. 5. Possibly sepsis. PLAN: The patient was started on fluconazole, meropenem and vancomycin. Neutropenic sepsis, fever. He has a steroids, stress doses. So far cultures are negative. Continue all antibiotics. His maxi mum temperature as of yesterday was 100.4. Continue supportive care. I will follow. One-half hour critical care time.
--- NOTE | 2017-06-30 08:44 | CON ---
DATE OF CONSULTATION: 06/29/2017 REASON FOR CONSULTATION: Multiple myeloma. HISTORY OF PRESENT ILLNESS: Mr. Child is a pleasant 56-year-old -[place] male well known t o our clinic, who has kappa light chain myeloma that was diagnosed in 2014. He had a recent relapse in 03/2017 and has undergone chemotherapy with a cycle of then Darzalex and now on Kyprolis, Cy toxan. His last treatment was on 06/25/2017 and Thursday06/26/2017, he was transfused platel ets on Thursday for a platelet count of 14,000. He has been given himself Neupogen at home for low whi te count, as he has chronic neutropenia secondary to bone marrow infiltration. Over the weekend, he developed a fever of 103 and presented to the emergency room for evaluation. He had a chest x-ray pe rformed, which showed no acute findings, and abdomen and pelvis CT showed diffuse lytic bone changes consistent with myeloma. He does have a metastatic disease in his bones with compression fractions o f his thoracic spine. He had low blood pressure and was started on IV fluids and antibiotics and adm itted to the [facility]. He was currently receiving a blood transfusion for hemoglobin of 5.3 on admission . The patient was recently in the hospital several weeks ago for a GI bleed secondary to thrombocyto penia. His platelet count is 14,000 today. He denies any hemoptysis or melena at this time. PAST MEDICAL HISTORY: 1. [place] light chain myeloma. 2. Hypertension. 3. Diabetes mellitus, type 2. 4. Acid reflux. 5. Hypercalcemia. PAST SURGICAL HISTORY: 1. MediPort placement. 2. Stem cell transplant. ALLERGIES: IBUPROFEN and SULFA. HOME MEDICATIONS: 1. Hydrocodone p.r.n. 2. Lantus 20 units subcu q.a.m. 3. Protonix 40 mg daily. 4. MiraLax daily. 5. Baclofen 10 mg daily p.r.n. with a q.8 hours p.r.n. FAMILY HISTORY: Noncontributory. SOCIAL HISTORY: He is and has 3 children, lives with his spouse. A 25 pack-year history of smoking, no alcohol or illicit drug use. REVIEW OF SYSTEMS: Twelve-point review of systems is negative except for noted in HPI. PHYSICAL EXAMINATION: VITAL SIGNS: Temperature is 99.4 with a T-max of 103.5, heart rate is 124, respiratory rate is 27, B P is 110/86. He is 96% on 3 liters. GENERAL: Chronically ill-appearing male in no acute distress. HEENT: Normocephalic, atraumatic. Pupils equal and reactive to light. NECK: Supple. CV: Tachycardia. LUNGS: Crackles at the posterior bases. ABDOMEN: Soft, nontender, bowel sounds are positive. EXTREMITIES: No clubbing, cyanosis, or edema. SKIN: No rash. HEMATOLOGIC: No petechia or purpura. NEUROLOGIC: Nonfocal. PSYCHIATRIC: The patient is oriented and appropriate. PERTINENT LABORATORY AND X-RAYS: Current WBCs are 0.1, hemoglobin 6.3, hematocrit 17.9, platelet cou nt is 14,000. PT is 20.8, INR is 1.7, PTT 51.5. Sodium is 141, potassium 3.6, chloride 114, CO2 of 16, BUN is 36, creatinine 2.52, glucose is 144. Lactic acid is 2.9, calcium 9.8, magnesium 1.5, tota l bilirubin is 2.9, AST 64, ALT is 89, alkaline phosphatase is 329. Troponin is 0.175. Serum total protein is 5, albumin 2.7, globulin 2.3. Urine was negative for bacteria. IMPRESSION: 1. Multiple myeloma, status post chemotherapy cycle 2 Kyprolis and Cytoxan 5 days ago. 2. Neutropenic fever. 3. Chronic pancytopenia. 4. Chronic kidney disease. 5. Elevated liver function tests. 6. Chronic back pain secondary to pathological fractures. DISCUSSION: The patient is currently being transfused packed RBCs and we will monitor his CBC daily and transfuse p.r.n., add Neupogen daily to hopefully stimulate his bone marrow to make white blood c ells. He has been started on IV fluids, antibiotics, and Infectious Disease has been consulted. A f entanyl patch for pain control. That is his primary complaint at this time. Case will be discussed with Dr. Machado. Thank you for the consult and we will follow him very closely.
[2017-06-30] MEDS: HYDROcodone/Acetaminophen 5/325 mg Tablet PO PRN ×3 (09:34→19:34)
[2017-06-30] MEDS: Famotidine 20 MG TAB PO SCH (09:34)
[2017-06-30] MEDS: Dextrose 5 %-0.45 % NaCl 1,000 ML IV SCH ×2 (09:37→17:44)
[2017-06-30] MEDS: Pantoprazole 40 MG VIAL IVP SCH ×4 (09:38→19:35)
[2017-06-30] MEDS: Fluconazole In NaCl,Iso-Osm 200 MG in Premix Bag 1 BAG IVPB SCH ×2 (09:38)
[2017-06-30] MEDS: Polyethylene Glycol 3350 17 GM Packet PO SCH (09:39)
[2017-06-30 10:25] LABS: Vancomycin, Trough 22.5 ug/mL
--- NOTE | 2017-06-30 10:36 | PRG ---
DATE OF SERVICE: 06/30/2017 Mr. Flaherty had 1 dark black stool today early this morning per the nurses. He has been stable over night. MEDICATIONS: Tylenol, hydrocodone, D5 half normal at 100, Pepcid, Duragesic, fluconazole, Solu-Leanna f 100 q.6, insulin sliding scale, meropenem, Zofran, Protonix, MiraLax p.r.n., Filgrastim, vancomyci n. PHYSICAL EXAMINATION: VITAL SIGNS: Temperature 97, pulse 83, respirations 23, blood pressure 113/74, T-max 100.4 yesterday , today 97.6. In's and out's 4035 and 293. GENERAL: He is awake, alert, and oriented. HEENT: Conjunctivae and sclerae are clear. There is no petechiae. ABDOMEN: Slightly protuberant. He complains of mild pain. There is mild tenderness in the right fl ank, but there is no rebound or guarding. Bowel sounds are positive. EXTREMITIES: No clubbing, cyanosis, or edema. LABORATORY: White count is 0.2, hemoglobin 7.2, it was 6.3 at 2:00 a.m. yesterday and 5.3 at 2300 on the , platelet count is up to 28,000. INR was 1.7 on the , BUN and creatinine 53 and 3.67. Magnesium is 1.5, glucose 118. Bilirubin 4.9, up from 2.9 on 06/28/2017. AST is 1032, ALT 495. Th e AST was 64 yesterday. ALT was 289 yesterday. Alkaline phosphatase 243, albumin 2.5, protein 4.9. IMAGING: CT scan of abdomen and pelvis on 06/29/2017, unremarkable liver, no ductal dilatation, no g allstones, moderate stool throughout the colon, no mucosal abnormalities, diffuse lytic bone lesions, large cardiophrenic lymph node. Compression fractures T7-T11. ASSESSMENT: 1. Multiple myeloma. 2. Chronic renal failure with acute worsening. 3. Abnormal liver function tests with increased AST and ALT today. This may be related to shock leigh er. There was normal liver on ultrasound, no gallstones, it may be a component of hemolysis. 4. Gastrointestinal bleeding with some reported black stools, likely related to severe pancytopenia. He had a previous bleeding lesion in the duodenum which was characterized as Dieulafoy about 3 week s ago. At this point in time, there is no acute bleeding. 5. Bacteremia. RECOMMENDATIONS: 1. I agree with platelet support, blood support as necessary. I agree with IV Protonix. 2. We will continue to follow bleeding. If there is acute hemorrhage we may have to intervene endos copically, but otherwise would like to hold off on that for now with his illness he has and as low as his platelets are. 3. With regard to his abnormal liver enzymes, we will continue to follow these. We will check hepat itis panel, though I suspect this is probably more shock liver picture related to his sepsis.
[2017-06-30] MEDS ORDERED: Vancomycin HCl 500 MG in Sodium Chloride 0.9% 100 ML IVPB SCH ×3 (11:00)
[2017-06-30] MEDS ORDERED: HOLD VANCOMYCIN FOR LEVEL >20 FS SCH (11:00)
[2017-06-30] MEDS ORDERED: Vancomycin HCl 750 MG in Sodium Chloride 0.9% 250 ML 250 ML IVPB SCH (11:00)
[2017-06-30] MEDS ORDERED: Vancomycin HCl 1 GM in Premix Bag 1 BAG IVPB SCH (11:00)
[2017-06-30] MEDS ORDERED: Vancomycin HCl 1.25 GM in Sodium Chloride 0.9% 250 ML 250 ML IVPB SCH (11:00)
[2017-06-30] MEDS: Insulin Detemir 100 UNITS/ML 20 UNITS in Pre-Filled Syringe 1 EACH SC SCH (11:37)
[2017-06-30 13:20] LABS: Hep B Surf Ag Non-Reactive S/CO (NonReactive)
[2017-06-30 13:21] LABS: HBSAg Index 0.15 S/CO (0-0.99); Hep C IgG Ab Non-Reactive (NonReactive); Hep C Index 0.07 S/CO (0-0.79)
[2017-06-30 13:22] LABS: Hep A IgM AB Non-Reactive (NonReactive); Hep A IgM S/CO 0.06 S/CO (0-0.79)
[2017-06-30 13:24] LABS: HBCM Index 0.04 S/CO (0-0.79); Hepatitis B Core IGM Abs Non-Reactive (NonReactive)
[2017-06-30] MEDS ORDERED: Albumin 25% 25 GM/100 ML BOT IVPB SCH (14:11)
--- NOTE | 2017-06-30 16:33 | PDOC.PN ---
- Subjective Encounter Start Date: 06/30/17 Encounter Start Time: 16:25 Subjective: f/u for neutropenic fever and Enterbacter bacteremia currently on -: Meropenem, Vancomycin and Fluconazole. Hx of multiple myeloma -: on current Carfilzomib and Cytoxan. - Objective Resuscitation Status: Resuscitation Status FULL:Full Resuscitation MAR Reviewed: Yes Vital Signs & Weight: Vital Signs (12 hours) Temp Pulse Resp Pulse Ox 06/30/17 12:00 97.7 F 06/30/17 08:00 97.6 F 83 23 H 98 06/30/17 06:35 98 06/30/17 06:32 92 Weight Weight 167 lb 11.2 oz Most Recent Monitor Data Heart Rate from ECG 84 NIBP 100/73 NIBP BP-Mean 81 Respiration from ECG 18 SpO2 98 I&O: 06/29/17 06/30/17 07/01/17 06:59 06:59 06:59 Intake Total 867 4035 Output Total 450 293 153 Balance 417 3742 -153 Result Diagrams: 06/30/17 05:17 06/30/17 05:17 Additional Labs: Accuchecks 06/30/17 06/30/17 06/29/17 11:29 06:36 21:21 POC Glucose 216 H 188 H 89 06/29/17 06/29/17 06/29/17 19:30 16:42 16:36 POC Glucose 66 L 49 L* 52 L* Microbiology 06/29/17 14:55 Stool Stool Occult Blood (ADDY) - Final 06/29/17 12:19 Nasopharyngeal swab Respiratory Virus Panel (PCR) (ADDY) - Final 06/29/17 00:18 Urine voided Urine Culture - Final Streptococcus agalactiae Gp. B 06/28/17 23:33 Serum Cryptococcal Antigen - Final 06/28/17 23:33 Port - Right Subclavian Vein Blood Culture - Preliminary Gram Negative Wesly 06/28/17 23:33 Port - Right Subclavian Vein Blood Culture - Preliminary Enterobacter species Laboratory Tests 06/28/17 06/28/17 06/28/17 23:33 23:33 23:33 WBC 0.2 L* Hgb 5.3 L* Plt Count 20 L* Carbon Dioxide 17 L Creatinine 2.67 H Magnesium Total Bilirubin 2.9 H AST 95 H ALT 356 H TSH 3rd Generation 1.3433 Vancomycin Trough Hepatitis A IgM Ab Hep Bs Antigen Hep B Core IgM Ab Hepatitis C Antibody 06/29/17 06/29/17 06/29/17 02:35 02:35 21:51 WBC 0.1 L* Hgb 6.3 L Plt Count 14 L* Carbon Dioxide 16 L 13 L Creatinine 2.52 H 3.54 H Magnesium 1.6 Total Bilirubin 2.9 H AST 64 H ALT 289 H TSH 3rd Generation Vancomycin Trough Hepatitis A IgM Ab Hep Bs Antigen Hep B Core IgM Ab Hepatitis C Antibody 06/30/17 06/30/17 06/30/17 05:17 10:04 10:29 WBC Hgb Plt Count Carbon Dioxide Creatinine Magnesium 1.5 L Total Bilirubin AST 1032 H ALT 494 H TSH 3rd Generation Vancomycin Trough 22.5 Hepatitis A IgM Ab Non-Reactive Hep Bs Antigen Non-Reactive Hep B Core IgM Ab Non-Reactive Hepatitis C Antibody Non-Reactive Radiology Reviewed by me: Yes (2D echo - EF 55%, mod MR/TR) EKG Reviewed by me: Yes Phys Exam - Physical Examination Constitutional: NAD scleral icterus HEENT: PERRLA, moist MMs, oral pharynx no lesions Neck: no nodes, no JVD, supple diminished bilaterally, few scattered coarse sounds R upper chest with mediport in place Respiratory: no wheezing, no rhonchi II/ IJEOMA in RUSB Cardiovascular: RRR, no rub, gallop Gastrointestinal: soft, non-tender, no distention, positive bowel sounds UE edema mild Musculoskeletal: pulses present Neurological: non-focal, normal sensation, moves all 4 limbs Psychiatric: normal affect, A&O x 3 Skin: no rash, normal turgor, cap refill <2 seconds Deviation from normal: Bhakta with scant dark urine Dx/Plan (1) Sepsis due to Enterobacter species Code(s): A41.59 - OTHER GRAM-NEGATIVE SEPSIS Status: Acute Comment: Enterobacter from R chest Mediport, continue Vancomycin and Meropenem, may need to consider removal of port (2) Neutropenic fever Code(s): D70.9 - NEUTROPENIA, UNSPECIFIED; R50.81 - FEVER PRESENTING WITH CONDITIONS CLASSIFIED ELSEWHERE Status: Acute Comment: Continue neutropenic precautions, recent tx with Cafilzomib and Cytoxan, medical oncology following, Granix 480mcg SC daily (3) MARIA A (acute kidney injury) Code(s): N17.9 - ACUTE KIDNEY FAILURE, UNSPECIFIED Status: Acute Comment: Worsening renal failure likely secondary to sepsis, Nephrology consulted to assist with monitoring, pt not interested in dialysis, avoid nephrotoxic meds and limit contrast exposure (4) Multiple myeloma in relapse Code(s): C90.02 - MULTIPLE MYELOMA IN RELAPSE Status: Acute Comment: hold antineoplastic agents (5) Pancytopenia due to chemotherapy Code(s): D61.810 - ANTINEOPLASTIC CHEMOTHERAPY INDUCED PANCYTOPENIA Status: Acute Comment: See above, appreciate medical oncology assistance (6) CKD (chronic kidney disease) stage 3, GFR 30-59 ml/min Code(s): N18.3 - CHRONIC KIDNEY DISEASE, STAGE 3 (MODERATE) Status: Chronic Comment: See under MARIA A - Plan continue antibiotics, addiction social worker, DVT proph w/SCDs Continue aggressive support -: Continue Vancomycin, Meropenem -: Continue Fluconazole -: Continue D5 1/2 NS IV -: Continue Granix 480mcg sc daily * AM lab: CMP, CBC
[2017-07-01] MEDS: MEROPENEM 1 GM/50 ML 1 GM in Premix Bag 1 BAG IVPB SCH ×2 (00:26→12:34)
[2017-07-01] MEDS: Hydrocortisone Sod Succ/PF 100 mg/2 ml Vial IVP SCH ×4 (00:26→18:15)
[2017-07-01] MEDS: Dextrose 5 %-0.45 % NaCl 1,000 ML IV SCH ×3 (02:15→23:50)
[2017-07-01] MEDS: HumaLOG 300 UNITS/3 ML VIAL SC PRN ×4 (06:11→20:45)
[2017-07-01 06:58] LABS: Hemoglobin 7.3 g/dL (14.0-18.0); Mean Corpuscular HGB CONC 34.1 g/dL (32.0-36.0); Mean Corpuscular Hemoglobin 29.6 pg (27.0-31.0); Mean Corpuscular Volume 86.8 fl (80.0-94.0); Mean Platelet Volume 13.2 fL (7.4-10.4); Platelet Count 16 thou/uL (130-400); RBC Distribution Width 14.3 % (11.5-14.5); Red Blood Cell (RBC) Count 2.46 mill/uL (4.70-6.10); White Blood Cell (WBC) Count 0.1 thou/uL (4.8-10.8)
[2017-07-01 07:15] LABS: ALT (SGPT) 327 U/L (8-55); AST (SGOT) 182 U/L (5-34); Albumin 2.7 g/dL (3.5-5.0); Alkaline Phosphatase 248 U/L (40-150); Anion Gap 16 mmol/L (10-20); BUN (Urea Nitrogen) 74 mg/dL (8.4-25.7); Bilirubin, Total 5.4 mg/dL (0.2-1.2); Calc. Creatinine Clearance 20 mL/min (70-130); Calcium 8.6 mg/dL (7.8-10.44); Carbon Dioxide 18 mmol/L (22-29); Chloride 107 mmol/L (98-107); Estimated GFR-MDRD 17; Globulin 2.4 g/dL (2.4-3.5); Glucose 212 mg/dL (70-105); Potassium 4.4 mmol/L (3.5-5.1); Protein, Total 5.1 g/dL (6.0-8.3); Sodium 137 mmol/L (136-145)
--- NOTE | 2017-07-01 08:01 | RAD ---
PORTABLE UPRIGHT FRONTAL CHEST RADIOGRAPH: Date: 07-01-17 History: Dyspnea. Comparison: 06-29-17 FINDINGS: The right subclavian Mediport catheter remains in place. The patient is rotated which accentuates the cardiac silhouette and mediastinal structures. The cardiac silhouette does appear enlarged. This exa m is also obtained in shallow depth of inspiration which accentuates the bronchovascular markings and cardiac silhouette. There is atelectasis at the right lung base. Remote right sided rib fracture is present. No other interval change. IMPRESSION: Limited exam due to depth of inspiration and technique, but there has been no significant interval ch socorro from the prior study. POS: [facility]
[2017-07-01] MEDS: HYDROcodone/Acetaminophen 5/325 mg Tablet PO PRN ×2 (08:05→15:50)
[2017-07-01 08:06] LABS: Crenated RBC SLIGHT = 1-5 cells (100X) (None Seen); MDiff Complete? YES; PLT Morphology Comment Appears Decreased; Target Cells SLIGHT = 2-5 cells (100X) (0-1/hpf)
[2017-07-01] MEDS: Pantoprazole 40 MG VIAL IVP SCH ×4 (08:07→20:33)
[2017-07-01] MEDS: Insulin Detemir 100 UNITS/ML 20 UNITS in Pre-Filled Syringe 1 EACH SC SCH (08:07)
--- NOTE | 2017-07-01 08:11 | PRG ---
DATE OF SERVICE: 07/01/2017 This is a 56-year-old gentleman remains in the ICU, lethargic, hypotensive. PHYSICAL EXAMINATION: VITAL SIGNS: Pulse 76, sats 96 on 3 liters, respiration 17. Minimal urine output. Blood pressure 9 0/80. CHEST: Chest reveals bilateral crackles. CARDIAC: Normal S1, S2, no gallops. ABDOMEN: Soft. No masses. LABORATORY: White count is 0.1, H&H is 7 and 21, platelet count of 16, BUN and creatinine are worse at 74 and 4.3 respectively. AST, ALT elevated at 182 and 327. Urine is growing Streptococcus and En terobacter from a central line which is sensitive to the meropenem. IMPRESSION: 1. Sepsis syndrome. 2. Pancytopenia. 3. Extensive multiple myeloma. 4. Worsening renal failure. PLAN: As per the family wishes I understand he is going to be made a DNR. Dr. Machado to discuss wi th family. At this stage I discontinued the vancomycin. Continue steroids, meropenem and fluids, seg[place]ia pportive care. Prognosis is poor.
[2017-07-01] MEDS: Polyethylene Glycol 3350 17 GM Packet PO SCH (08:12)
[2017-07-01] MEDS: Fluconazole In NaCl,Iso-Osm 200 MG in Premix Bag 1 BAG IVPB SCH ×2 (08:43)
[2017-07-01 10:58] LABS: Vancomycin, Random 18.5 ug/mL (See Comment)
--- NOTE | 2017-07-01 12:29 | PQF ---
CLINICAL DOCUMENTATION IMPROVEMENT CLARIFICATION FORM: ICD-10 Updated PLEASE DO AN ADDENDUM TO THE PROGRESS NOTE WITH ANY DOCUMENTATION UPDATES OR ADDITIONS AND CARRY THROUGH TO DC SUMMARY. THANK YOU. DATE: 07/01/17 ATTN: Dr. Portillo Please exercise your independent, professional judgment in responding to the clarification form. Clinical indicators are provided on the bottom of this form for your review Please check appropriate box(s): [ ] Acute Respiratory Failure: [ ] with Hypoxia [ ] with Hypercapnia [ ] Acute On Chronic Respiratory Failure: [ ] with Hypoxia [ ] with Hypercapnia [ ] Acute Respiratory Failure due to: (etiology) [ ] Chronic Respiratory Failure only [ ] with Hypoxia [ ] with Hypercapnia [ ] Other diagnosis [ x ] Unable to determine In addition, please specify: Present on Admission (POA): [ ] Yes [ ] No [ x ] Unable to determine For continuity of documentation, please document condition throughout progress notes and discharge summary. Thank You. CLINICAL INDICATORS - SIGNS / SYMPTOMS / LABS PULM. PN 06/29: BEGAN EXPERIENCING MORE RESPIRATORY DISTRESS. I THINK FROM METABOLIC ACIDOSIS. ABG PH OF 7.35, PCO2 18, AND PO2 OF 83 ON 2L NC. I GAVE HIM A LOW DOSE OF LASIX . MOVE TO CCU FOR FURTHER CLOSE CARE & START BIPAP NEEDED FOR RESP. ASSISTANCE. NURSING VS 06/29: RESP. 23, 25, 32, 27, 16, 30 PULM. PN /: HIS SATS ARE 90% ON 2 LITERS, RESP 19 RISKS: H&P: HX OF MULTIPLE MYELOMA ON CHEMOTHERAPY; HTN, DM 2. CKD. HX OF SMOKING. ADMISSION FOR SEPSIS. TREATMENT: CPOE 06/29: RESP: VISION BIPAP NEEDED FOR RESP. DISTRESS CPOE 06/29: RESP: O2 TO KEEP SATS 90% CPOE 06/29: TRANSFER TO CRITICAL CARE Thank you, Raisa (This form is maintained as a part of the permanent medical record) 2015 [employer]. All Rights Reserved Raisa Zarate RN, BSN [email or web address] Office: [phone] [facility]
[2017-07-01 14:26] LABS: CMV DNA-PCR Test Negative (Negative)
[2017-07-01 15:24] LABS: Base Excess-Venous -7.3 mmol/L (0 (+/- 2.5)); CO2 Tension (PvCO2) 22.7 mmHg (41.0-51.0); Calcium, Ionized 1.35 mmol/L (1.12-1.32); Hemoglobin - Calc 5.3 g/dL (12.0-18.0); Potassium 3.3 mmol/L (3.4-4.7); T. Carbon Dioxide 16.7 mmol/L (1.0-85.0); pH (Venous) 7.457 (7.35-7.45); vO2 Saturation-calc 99.8 % (94-98)
--- NOTE | 2017-07-01 17:12 | PDOC.PN ---
- Subjective Encounter Start Date: 07/01/17 Encounter Start Time: 17:05 Subjective: f/u for sepsis from Enterobacter from Mediport sample. Receiving -: Meropenem and Fluconazole. Transitioning to comfort care and hospice. - Objective Resuscitation Status: Resuscitation Status FULL:Full Resuscitation MAR Reviewed: Yes Vital Signs & Weight: Vital Signs (12 hours) Temp Pulse Resp Pulse Ox 07/01/17 11:00 98.3 F 07/01/17 08:00 97.9 F 79 14 95 Weight Weight 167 lb 11.2 oz Most Recent Monitor Data Heart Rate from ECG 75 NIBP 94/75 NIBP BP-Mean 78 Respiration from ECG 10 SpO2 96 I&O: 06/30/17 07/01/17 07/02/17 06:59 06:59 06:59 Intake Total 4035 3006 375 Output Total 293 233 15 Balance 3742 2773 360 Result Diagrams: 07/01/17 06:13 07/01/17 06:13 Additional Labs: Accuchecks 07/01/17 07/01/17 07/01/17 16:44 12:50 06:11 POC Glucose 216 H 230 H 230 H 06/30/17 20:25 POC Glucose 279 H Microbiology 06/29/17 14:55 Stool Stool Occult Blood (ADDY) - Final 06/29/17 12:19 Nasopharyngeal swab Respiratory Virus Panel (PCR) (ADDY) - Final 06/29/17 00:18 Urine voided Urine Culture - Final Streptococcus agalactiae Gp. B 06/28/17 23:33 Serum Cryptococcal Antigen - Final 06/28/17 23:33 Port - Right Subclavian Vein Blood Culture - Final Enterobacter cloacae complex 06/28/17 23:33 Port - Right Subclavian Vein Blood Culture - Final Enterobacter cloacae complex 06/30/17 15:31 Venous blood - Right Hand Blood Culture - Preliminary Specimen has been received and culture in progress. No Growth to date. 06/30/17 15:16 Central Line - Right Subclavian Vein Blood Culture - Preliminary Specimen has been received and culture in progress. No Growth to date. 06/28/17 23:33 Port - Right Subclavian Vein Blood Culture - Preliminary Gram Negative Wesly 06/28/17 23:33 Port - Right Subclavian Vein Blood Culture - Preliminary Enterobacter species Laboratory Tests 06/28/17 06/28/17 06/28/17 23:33 23:33 23:33 WBC 0.2 L* Hgb 5.3 L* Plt Count 20 L* Carbon Dioxide 17 L Creatinine 2.67 H Magnesium Total Bilirubin 2.9 H AST 95 H ALT 356 H Alkaline Phosphatase TSH 3rd Generation 1.3433 Vancomycin Trough Random Vancomycin Hepatitis A IgM Ab Hep Bs Antigen Hep B Core IgM Ab Hepatitis C Antibody 06/29/17 06/29/17 06/29/17 02:35 02:35 21:51 WBC 0.1 L* Hgb 6.3 L Plt Count 14 L* Carbon Dioxide 16 L 13 L Creatinine 2.52 H 3.54 H Magnesium 1.6 Total Bilirubin 2.9 H AST 64 H ALT 289 H Alkaline Phosphatase TSH 3rd Generation Vancomycin Trough Random Vancomycin Hepatitis A IgM Ab Hep Bs Antigen Hep B Core IgM Ab Hepatitis C Antibody 06/30/17 06/30/17 06/30/17 05:17 10:04 10:29 WBC Hgb Plt Count Carbon Dioxide Creatinine Magnesium 1.5 L Total Bilirubin AST 1032 H ALT 494 H Alkaline Phosphatase TSH 3rd Generation Vancomycin Trough 22.5 Random Vancomycin Hepatitis A IgM Ab Non-Reactive Hep Bs Antigen Non-Reactive Hep B Core IgM Ab Non-Reactive Hepatitis C Antibody Non-Reactive 07/01/17 07/01/17 06:13 10:34 WBC Hgb Plt Count Carbon Dioxide Creatinine Magnesium Total Bilirubin 5.4 H AST 182 H ALT 327 H Alkaline Phosphatase 248 H TSH 3rd Generation Vancomycin Trough Random Vancomycin 18.5 Hepatitis A IgM Ab Hep Bs Antigen Hep B Core IgM Ab Hepatitis C Antibody Radiology Reviewed by me: Yes (PCXR - R basilar atelectasis) EKG Reviewed by me: Yes (Tele - SR in 80's) Phys Exam - Physical Examination tired-appearing HEENT: PERRLA, moist MMs, sclera anicteric, oral pharynx no lesions Neck: no nodes, no JVD, supple scattered rhonchi and diminished sounds in bases Cardiovascular: RRR, no significant murmur, no rub, gallop Gastrointestinal: soft, non-tender, no distention, positive bowel sounds Musculoskeletal: pulses present, edema present Neurological: normal sensation, moves all 4 limbs lethargic but opens eyes and talks briefly Skin: no rash, normal turgor, cap refill <2 seconds Dx/Plan (1) Sepsis due to Enterobacter species Code(s): A41.59 - OTHER GRAM-NEGATIVE SEPSIS Status: Acute Comment: Enterobacter from R chest Mediport cx, continue Meropenem, may need to consider removal of port (2) Neutropenic fever Code(s): D70.9 - NEUTROPENIA, UNSPECIFIED; R50.81 - FEVER PRESENTING WITH CONDITIONS CLASSIFIED ELSEWHERE Status: Acute Comment: Continue neutropenic precautions, recent tx with Cafilzomib and Cytoxan, medical oncology following, Granix 480mcg SC daily (3) MARIA A (acute kidney injury) Code(s): N17.9 - ACUTE KIDNEY FAILURE, UNSPECIFIED Status: Acute Comment: Worsening renal failure likely secondary to sepsis, Nephrology consulted to assist with monitoring, pt not interested in dialysis, avoid nephrotoxic meds and limit contrast exposure (4) Multiple myeloma in relapse Code(s): C90.02 - MULTIPLE MYELOMA IN RELAPSE Status: Acute Comment: hold antineoplastic agents (5) Pancytopenia due to chemotherapy Code(s): D61.810 - ANTINEOPLASTIC CHEMOTHERAPY INDUCED PANCYTOPENIA Status: Acute Comment: See above, appreciate medical oncology assistance (6) CKD (chronic kidney disease) stage 3, GFR 30-59 ml/min Code(s): N18.3 - CHRONIC KIDNEY DISEASE, STAGE 3 (MODERATE) Status: Chronic Comment: See under MARIA A - Plan plan discussed w/ family, continue antibiotics, 7th grade social studies [employer], DVT proph w/ SCDs Continues clinical decline -: Pt and family ok with current tx but want DNR status, hospice care -: Continue Meropenem -: Continue Fluconazole -: Continue Granix 480mcg sc daily * Continue Fentanyl patch 75mcg q72h * Fentanyl 25mcg IV q2h prn breakthrough * Hospice consult
[2017-07-01] MEDS ORDERED: Fentanyl 100 MCG/2 ML VIAL SLOW IVP PRN (17:45)
--- NOTE | 2017-07-01 17:46 | PRG ---
DATE OF SERVICE: 07/01/2017 SUBJECTIVE: Patient was seen and examined at bedside and overnight events noted. Patient denies any shortness of breath or chest pain or palpitation. No history of nausea or vomiting or diarrhea or f ever or chills or cramps. OBJECTIVE: GENERAL: Well-built male in no apparent distress. VITAL SIGNS: Temperature 98.3, pulse 75, respiration 18, blood pressure 87/64. HEENT: Atraumatic, normocephalic. Oral mucosa is moist. NECK: Supple. CARDIOVASCULAR: S1, S2 heard. Rate and rhythm regular. RESPIRATORY: Clear to auscultation. GASTROINTESTINAL: Abdomen is soft. MUSCULOSKELETAL: No tenderness. 1+ edema. DERMATOLOGIC: No skin rash. NEUROLOGIC: Alert and awake and oriented x3. No focal neurologic deficits. Moving all the extremit ies. PSYCHIATRIC: Mood and affect normal LABORATORY DATA: Potassium 4.4, BUN 74, creatinine is 4.3. ASSESSMENT AND PLAN: 1. Acute kidney injury. Renal function is getting worse, not getting adequate dialysis, but family wishes not to have dialysis intervention if needed. 2. Elevated liver enzymes. 3. History of multiple myeloma. 4. Proteinuria. 5. Edema. 6. Anemia. 7. Pancytopenia. Family most likely wishing for comfort measures and follow up with Oncology.
--- NOTE | 2017-07-01 19:14 | CON ---
NEPHROLOGY CONSULTATION NOTE DATE OF CONSULTATION: 06/30/2017 CONSULTING PHYSICIAN: Lyndon Reed M.D. REASON FOR CONSULTATION: Acute kidney injury. REASON FOR ADMISSION: Fever. HISTORY OF PRESENT ILLNESS: A 56-year-old -[place]i male with history of multiple myeloma, ch ronic kidney disease, hypertension and diabetes who came to the hospital with fever and neutropenia a nd being evaluated for his creatinine is creeping up. He is having fever. He is very tired and leth argic. No family members at the bedside. The patient also wishes not to have much aggressive measur es and wants to go home. No nausea or vomiting reported PAST MEDICAL HISTORY: Positive for hypertension, multiple myeloma, type 2 diabetes, pancreatitis and acute on chronic kidney disease stage 3. PAST SURGICAL HISTORY: Right knee surgery and Port-A-Cath placement. HOME MEDICATIONS: Hydrocodone, Lantus, Protonix, MiraLax and fluconazole. ALLERGIES: MORPHINE and IBUPROFEN. FAMILY HISTORY: Positive for cancer. SOCIAL HISTORY: No smoking, alcohol or illicit drug abuse. REVIEW OF SYSTEMS: The following complete review of systems was negative, unless otherwise mentioned in the HPI or below: Constitutional: Weight loss or gain, ability to conduct usual activities. Skin: Rash, itching. Eyes: Double vision, pain. ENT/Mouth: Nose bleeding, neck stiffness, pain, tenderness. Cardiovascular: Palpitations, dyspnea on exertion, orthopnea. Respiratory: Shortness of breath, wheezing, cough, hemoptysis, fever or night sweats. Gastrointestinal: Poor appetite, abdominal pain, heartburn, nausea, vomiting, constipation, or diarr hea. Genitourinary: Urgency, frequency, dysuria, nocturia. Musculoskeletal: Pain, swelling. Neurologic/Psychiatric: Anxiety, depression. Allergy/Immunologic: Skin rash, bleeding tendency. PHYSICAL EXAMINATION: GENERAL: This is a thin well-built male who is lethargic. VITAL SIGNS: Temperature 93, pulse 70, respiration rate 16 and blood pressure 113/75. HEENT: Atraumatic and normocephalic. NECK: Supple. CARDIOVASCULAR: S1 and S2 heard. Rate and rhythm regular. RESPIRATORY: Clear. ABDOMEN: Soft. MUSCULOSKELETAL: 1+ edema. DERMATOLOGIC: No skin rash. NEUROLOGIC: Alert and awake. PSYCHIATRIC: Mood and affect normal. LABORATORY DATA: Hemoglobin is 7.3. Potassium is 4.4, BUN is 74 and creatinine is 4.3. ASSESSMENT AND PLAN: 1. Acute kidney injury. No acute indication for dialysis. The patient does not wish to have aggres sive measures. We will talk with the family too. 2. Hyperkalemia, better. 3. Acidosis, severe. 4. Hypoalbuminemia. 5. Hypertension. 6. Edema. 7. Proteinuria. 8. History of multiple myeloma. 9. Prognosis guarded. We will continue to monitor. We will continue to talk with the family. No a cute indication for dialysis. We will follow.
--- NOTE | 2017-07-01 21:03 | PRG ---
DATE OF SERVICE: 07/01/2017 SUBJECTIVE: Mr. Child is sleepy. He does wake up, communicate little more something yesterday. T he nurse tells me that his family has talked with the staff and they are planning on evaluation for p alliative care in light of the advancement of his multiple myeloma. He has had one bowel movement wh ich was dark, but that was the only one in the past 24 hours. OBJECTIVE: VITAL SIGNS: Blood pressure 94/75, pulse 78, respirations 18, temperature of 100.4 on 06/29 and 98.3 today. ABDOMEN: Soft with mild tenderness in the right upper quadrant and more in the right flank. Bowel s ounds are quiescent. EXTREMITIES: No clubbing cyanosis or edema. LABORATORY DATA: White count 0.1, hemoglobin 7.3 and platelet count 16,000. INR 1.7. Sodium 137, p otassium 4.4, BUN and creatinine are 74 and 4.39. AST and ALT are 182 and 327, with bilirubin of 5.4 , alkaline phosphatase is 248. Hepatitis A, B, and C were negative. CMB pending. ASSESSMENT: 1. Progressive renal failure. 2. Myeloma, reportedly worsening. 3. Gastrointestinal bleeding seems to have resolved. 4. Pancytopenia. Essentially this led to myeloma, possible underlying infection. CMB is a good tho ught as serology is pending for this. PLAN: At this time, it seems that there may be some decisions that will be made with regard to palli ative care. We would defer this to his oncologist who knows his course best. I will be available to reevaluate for bleeding if needed.
[2017-07-02] MEDS: HumaLOG 300 UNITS/3 ML VIAL SC PRN ×2 (00:52→06:42)
[2017-07-02] MEDS: MEROPENEM 1 GM/50 ML 1 GM in Premix Bag 1 BAG IVPB SCH ×2 (01:00→13:24)
[2017-07-02] MEDS: Hydrocortisone Sod Succ/PF 100 mg/2 ml Vial IVP SCH ×3 (02:24→13:24)
[2017-07-02 03:48] VITALS: BP 92/61
[2017-07-02 06:05] LABS: Hemoglobin 7.4 g/dL (14.0-18.0); Mean Corpuscular HGB CONC 33.9 g/dL (32.0-36.0); Mean Corpuscular Hemoglobin 29.3 pg (27.0-31.0); Mean Corpuscular Volume 86.5 fl (80.0-94.0); Mean Platelet Volume 11.8 fL (7.4-10.4); Platelet Count 13 thou/uL (130-400); RBC Distribution Width 14.5 % (11.5-14.5); Red Blood Cell (RBC) Count 2.51 mill/uL (4.70-6.10); White Blood Cell (WBC) Count 0.1 thou/uL (4.8-10.8)
[2017-07-02 06:10] LABS: ALT (SGPT) 201 U/L (8-55); AST (SGOT) 52 U/L (5-34); Albumin 2.6 g/dL (3.5-5.0); Alkaline Phosphatase 245 U/L (40-150); Anion Gap 16 mmol/L (10-20); BUN (Urea Nitrogen) 82 mg/dL (8.4-25.7); Bilirubin, Total 4.6 mg/dL (0.2-1.2); Calc. Creatinine Clearance 18 mL/min (70-130); Calcium 8.4 mg/dL (7.8-10.44); Carbon Dioxide 17 mmol/L (22-29); Chloride 106 mmol/L (98-107); Estimated GFR-MDRD 15; Globulin 2.5 g/dL (2.4-3.5); Glucose 191 mg/dL (70-105); Potassium 4.1 mmol/L (3.5-5.1); Protein, Total 5.1 g/dL (6.0-8.3); Sodium 135 mmol/L (136-145)
--- NOTE | 2017-07-02 08:42 | PRG ---
DATE OF SERVICE: 07/02/2017 This morning he is awake, responsive. PHYSICAL EXAMINATION: VITAL SIGNS: Pulse 75, blood pressure 85/62, sats 95% on oxygen, respirations 12. GENERAL: He denied any pain, difficulty breathing. He is jaundiced. CHEST: Decreased revealed breath sounds without any wheezing, but minimal rhonchi. CARDIAC: Normal S1-S2. No gallops. ABDOMEN: Soft. EXTREMITIES: Edema. LABORATORY: Platelet count of 13,000, white count is 0.1, H&H 7 and 21, creatinine 4.9, BUN 82. AST is 201. IMPRESSION: 1. Multiorgan failure. 2. Extensive multiple myeloma. 3. Worsening renal failure. 4. Severe pancytopenia, status post chemotherapy. 5. Presumed sepsis. 6. Respiratory failure. All cultures are negative except for urine streptococcus. The patient is on meropenem, steroids Difl ucan. Continue comfort care. He can probably be transferred out of the ICU.
[2017-07-02] MEDS: Insulin Detemir 100 UNITS/ML 20 UNITS in Pre-Filled Syringe 1 EACH SC SCH (08:51)
[2017-07-02] MEDS: Fluconazole In NaCl,Iso-Osm 200 MG in Premix Bag 1 BAG IVPB SCH ×2 (08:56)
[2017-07-02] MEDS: Pantoprazole 40 MG VIAL IVP SCH ×2 (08:56)
[2017-07-02 13:20] VITALS: TEMP 98.2
[2017-07-02] MEDS: Polyethylene Glycol 3350 17 GM Packet PO SCH (13:24)
--- NOTE | 2017-07-02 21:41 | PRG ---
DATE OF SERVICE: 07/02/2017 NEPHROLOGY PROGRESS NOTE SUBJECTIVE: Patient was seen and examined at bedside and overnight events noted. Patient denies any shortness of breath or chest pain or palpitation. No history of nausea or vomiting or diarrhea or f ever or chills or cramps. OBJECTIVE: GENERAL: This is a well-built male in mild to moderate distress. VITAL SIGNS: Temperature 98.2, pulse 79, respiratory rate 22, blood pressure 117/70. HEENT: Atraumatic, normocephalic. Oral mucosa is moist. NECK: Supple. CARDIOVASCULAR: S1, S2 heard. Rate and rhythm regular. RESPIRATORY: Clear to auscultation. GASTROINTESTINAL: Abdomen is soft. MUSCULOSKELETAL: No tenderness. No edema. DERMATOLOGIC: No skin rash. NEUROLOGIC: Alert and awake and oriented x3. No focal neurologic deficits. Moving all the extremiti es. PSYCHIATRIC: Mood and affect normal. LABORATORY DATA: Potassium is 4.0, BUN 42, creatinine is 4.9. ASSESSMENT AND PLAN: 1. Acute kidney injury. Renal function is getting worse, but family does not want any dialysis inte rvention. 2. Elevated liver enzymes. 3. Proteinuria. 4. Edema. 5. Pancytopenia. 6. Multiple myeloma. PROGNOSIS: Guarded. Agree with comfort measures. I will sign off.
--- NOTE | 2017-07-02 23:07 | DIS ---
DATE OF ADMISSION: 06/29/2017 DATE OF DISCHARGE: 07/02/2017 DISCHARGE DIAGNOSES: 1. Sepsis secondary to Enterobacter species. 2. Neutropenic fever. 3. Acute kidney injury, worsening. 4. Advanced multiple myeloma in relapse. 5. Pancytopenia secondary to chemotherapy. 6. Chronic kidney disease, stage 3. CONSULTATIONS: Dr. Reed and Dr. Jay with Pulmonology Service. Medical Oncology Service. Dr. Saba godinez and Dr. Murray with GI Service. Dr. Arnold with Nephrology Service. Dr. De La Garza with Infectious D isease Service. PERTINENT LABORATORY AND X-RAY FINDINGS: Creatinine ranged between 2.52-4.95. Estimated GFR ranged between 15-32. Hemoglobin A1c 7.1. Lactic acid level ranged between 2.9-3.3. Magnesium level range d between 1.5-1.6. AST ranged between 52-1032, ALT ranged between 201-494, and albumin ranged betwee n 2.5-3.1. CBC showed a white blood cell count ranging between 0.1-0.2, hemoglobin ranged between 5. 3-7.4, and platelet count ranged between 13,000-28,000. Hepatitis A, B, and C panel nonreactive on 0 06/30/2017. Right subclavian MediPort. Blood cultures dated 06/28/2017 positive 2/2 for Enterobacter cloacae complex. Urine culture dated 06/29/2017 positive for Streptococcus agalactiae group B. Res piratory virus panel by PCR dated 06/29/2017 negative. Stool Hemoccult dated 06/29/2017 positive x1. Blood cultures x2 dated 06/30/2017 showed no growth at 48 hours. Portable chest x-ray dated 2017 showed chronic changes in bilateral lung vu. Right subclavian MediPort in place. CT of the abdomen and pelvis dated 06/29/2017 showed diffuse lytic bony changes consistent with myeloma. Lymp hadenopathy in the cardiophrenic distribution. A 2D transthoracic echocardiogram dated 06/30/2017 sh owed ejection fraction 55% to 60%. Moderate left atrial enlargement. Moderate mitral regurgitation. Moderate tricuspid valve regurgitation. Portable chest x-ray dated 07/01/2017 showed no significan t interval change. HOSPITAL COURSE: The patient was initially admitted to the critical care unit after presenting with neutropenic fever and pancytopenia in the context of advanced multiple myeloma in relapse on current chemotherapy with carfilzomib and Cytoxan. The patient was placed on neutropenic precautions as well as initiated on vancomycin, cefepime, and fluconazole. The patient was also noted with lactic acido sis receiving 3 amps of sodium bicarbonate. The patient was placed on sepsis protocol after the chrystal ent met criteria for the protocol. Blood cultures x2 were positive for Enterobacter species after be ing drawn from the right MediPort. The patient continued on broad spectrum antibiotic therapy, trans itioning to meropenem and fluconazole after evaluation by the Infectious Disease Service. The patien t continued to clinically decompensate despite aggressive supportive measures. The patient was place d on Granix subcutaneously daily due to the neutropenia and pancytopenia. The patient received 2 uni ts of packed red blood cells and 1 pack of platelets. Serial CBC assessment showed essentially no ch socorro in the pancytopenia with current therapy. The patient's renal function continued to decline wit h worsening creatinine. The patient was evaluated by the Nephrology Service with recommendations for medical management. Due to patient's overall deconditioned status, comorbid state and advanced myel indu, the patient was deemed an appropriate candidate for palliative care services. Discussions were had with the patient and at which point the patient decided to convert to a DO NOT RESUSCITATE status and pursue comfort measures with hospice care. On the day of discharge to hospice care, I have exam ined the patient and discussed plan of care after transitioning to inpatient hospice care. The patie nt and family verbalize agreement and will proceed with comfort measures. DISCHARGE MEDICATIONS: 1. Fentanyl patch 75 mcg transdermally q.72 hours. 2. Tylenol suppository 650 mg 1 suppository q.4 hours p.r.n. 3. Levsin 0.125 mg sublingually q.4 hours p.r.n. FOLLOWUP: The patient to follow up with [facility]. CONDITION ON DISCHARGE: Guarded. ACTIVITY: Ad martha. DIET: Regular. CODE STATUS: DO NOT RESUSCITATE. DISPOSITION: Discharged to inpatient hospice with [facility] on 07/02/2017.
== END 2017-07-02 15:02 | disposition hospice, inpatient (51) | DRG 871 ==
LOC: ERS 22:46 → IMCU/EMU 06-29 01:31 → CCU 06-29 18:09 → T4-B 07-02 14:59
PROVIDERS: ADMIT Internal Medicine Infectious Disease; ATTEND Internal Medicine Infectious Disease
PROC: 30233R1 Transfusion of Nonautologous Platelets into Peripheral Vein, Percutaneous Approach (ICD-10-PCS; principal; 2017-06-29)
PROC: 30233N1 Transfusion of Nonautologous Red Blood Cells into Peripheral Vein, Percutaneous Approach (ICD-10-PCS; 2017-06-29)
PROC: 5A09357 Assistance with Respiratory Ventilation, Less than 24 Consecutive Hours, Continuous Positive Airway Pressure (ICD-10-PCS; 2017-06-29)
DX: A41.59 Other Gram-negative sepsis (principal); D61.810 Antineoplastic chemotherapy induced pancytopenia; J96.90 Respiratory failure, unspecified, unspecified whether with hypoxia or hypercapnia; C90.02 Multiple myeloma in relapse; N17.9 Acute kidney failure, unspecified; E87.2 Acidosis; D70.9 Neutropenia, unspecified; N18.3 Chronic kidney disease, stage 3 (moderate); E11.22 Type 2 diabetes mellitus with diabetic chronic kidney disease; Z94.84 Stem cells transplant status; R17 Unspecified jaundice; K92.2 Gastrointestinal hemorrhage, unspecified; R50.81 Fever presenting with conditions classified elsewhere; T45.1X5A Adverse effect of antineoplastic and immunosuppressive drugs, initial encounter; Z51.5 Encounter for palliative care; I12.9 Hypertensive chronic kidney disease with stage 1 through stage 4 chronic kidney disease, or unspecified chronic kidney disease; E87.5 Hyperkalemia; E88.09 Other disorders of plasma-protein metabolism, not elsewhere classified; R80.9 Proteinuria, unspecified; M84.58XD Pathological fracture in neoplastic disease, other specified site, subsequent encounter for fracture with routine healing; F17.210 Nicotine dependence, cigarettes, uncomplicated
CPT/HCPCS: 36415; 36416; 36430; 71045; 74176; 80053; 80074; 80202; 81003; 81015; 82274; 82330; 82550; 82553; 82803; 82805; 83036; 83605; 83735; 84443; 84484; 85007; 85025; 85027; 85610; 85730; 86850; 86870; 86880; 86900; 86901; 86922; 86970; 87040; 87077; 87086; 87149; 87186; 87449; 87497; 87633; 87899; 90471; 90670; 93306; 94660; 96365; 96366; 96368; 96375; 99406; C9113; G0009; J0692; J1447; J1450; J1720; J1815; J1940; J1956; J2185; J3010; J3370; J7050; J7070; P9016; P9035; P9047

== ENCOUNTER 2017-07-02 15:09 | Inpatient (IN) | payer OTHER ==
[2017-07-02] MEDS ORDERED: Fentanyl 100 MCG/2 ML VIAL SLOW IVP PRN (15:42)
[2017-07-02] MEDS ORDERED: Acetaminophen 650 MG Suppository PR PRN (15:43)
[2017-07-02 16:06] VITALS: BMI 23.9
[2017-07-02] MEDS: fentaNYL 75 mcg/hour Patch TD SCH (17:49)
[2017-07-03] MEDS: Morphine 10 MG/0.5 ML ORAL SYRINGE SL PRN ×2 (17:40→21:59)
[2017-07-04] MEDS: Morphine 10 MG/0.5 ML ORAL SYRINGE SL PRN ×4 (03:28→20:25)
[2017-07-05] MEDS: Morphine 10 MG/0.5 ML ORAL SYRINGE SL PRN ×5 (00:28→20:09)
[2017-07-05] MEDS: fentaNYL 75 mcg/hour Patch TD SCH (17:34)
[2017-07-06] MEDS: Morphine 10 MG/0.5 ML ORAL SYRINGE SL PRN (01:03)
[2017-07-06] MEDS ORDERED: Morphine 4 MG/ML VIAL SLOW IVP PRN (12:46)
[2017-07-06] MEDS: Morphine 4 MG/ML VIAL SLOW IVP SCH ×4 (13:43→22:56)
[2017-07-06] MEDS: Morphine 4 MG/ML VIAL SLOW IVP PRN (18:31)
[2017-07-06] MEDS: Lorazepam 2 MG/ML VIAL SLOW IVP PRN (23:00)
[2017-07-07] MEDS: Morphine 4 MG/ML VIAL SLOW IVP SCH ×8 (01:25→22:11)
[2017-07-07] MEDS: Lorazepam 2 MG/ML VIAL SLOW IVP PRN ×5 (04:02→22:10)
[2017-07-07] MEDS: Hyoscyamine Sulfate SL 0.125 mg Tablet SL PRN ×2 (15:00→23:55)
[2017-07-07] MEDS: Morphine 4 MG/ML VIAL SLOW IVP PRN (16:53)
[2017-07-08] MEDS: Morphine 4 MG/ML VIAL SLOW IVP SCH ×5 (03:38→13:12)
[2017-07-08] MEDS: Lorazepam 2 MG/ML VIAL SLOW IVP PRN ×3 (03:38→11:33)
[2017-07-08] MEDS ORDERED: Sodium Chloride 0.9% 60 ML ONE (07:18)
[2017-07-08 07:34] VITALS: BP 98/51; TEMP 99.7
[2017-07-08] MEDS: Hyoscyamine Sulfate SL 0.125 mg Tablet SL PRN (10:05)
[2017-07-08] MEDS ORDERED: Lorazepam 2 MG/ML VIAL SLOW IVP PRN (14:10)
[2017-07-08] MEDS ORDERED: Morphine 4 MG/ML VIAL SLOW IVP PRN (14:11)
[2017-07-08] MEDS ORDERED: Hyoscyamine Sulfate SL 0.125 mg Tablet SL PRN (14:13)
--- NOTE | 2017-07-09 14:02 | DS ---
This is a 56-year-old gentleman who had a history of acute renal failure in the setting of multiple m yeloma with sepsis and altered mentation. HOSPITAL COURSE: The patient was admitted to hospice as he had exhausted all chemotherapy options. The patient had altered mentation. The patient was pain free and started on comfort care and the pat ient passed 07/08/2017 at 2:00 p.m. and the family was notified and the patient was sent to the [facility] [place]
--- NOTE | 2017-08-13 08:52 | PQF ---
NANDA JOHNSON JR, ASAD MD [id number] CLINICAL DOCUMENTATION CLARIFICATION FORM: POST DISCHARGE Addendum to original discharge summary date: ____ Late entry note date: __ DATE: 08/13/17 ATTN: Dr Eden Please exercise your independent, professional judgment in responding to the clarification form. Clinical indicators are provided on the bottom of this form for your review Please check appropriate box(s): [ ] Encephalopathy: Type: [ ] Acute [ ] Subacute [ ] Chronic Etiology: [ ] Hypertensive [ ] Metabolic [ ] Toxic [ ] Hepatic with Coma [ ] Hepatic w/o Coma [ ] Hypoxic [ ] Septic [ ] Drug induced: [ ] Unspecified [ ] in the setting of underlying dementia [ ] Other (please specify) [ ] Transient Alteration of Awareness [ ] Other diagnosis [ ] Unable to determine In addition, please specify: Present on Admission (POA): [ ] Yes [ ] No [ ] Unable to determine For continuity of documentation, please document condition throughout progress notes and discharge summary. Thank You. CLINICAL INDICATORS - SIGNS / SYMPTOMS / LABS Altered mental status 19 Nursing Assessment oriented to person; Minimally responsive RISK FACTORS H&P: multiple myeloma w/ sepsis; acute renal failure TREATMENTS: 07-11 Summary: Hospice exhausted all chemotherapy options, altered mentation (This form is maintained as a part of the permanent medical record) 2014 [employer]. All Rights Reserved [email or web address] [phone] [employer]
== END 2017-07-08 14:00 | disposition expired | DRG 872 ==
LOC: T4-B 15:09 → ONC 07-05 21:32
PROVIDERS: ADMIT Internal Medicine Nephrology; ATTEND Internal Medicine Nephrology
DX: A41.9 Sepsis, unspecified organism (principal); N17.9 Acute kidney failure, unspecified; C90.00 Multiple myeloma not having achieved remission; D70.9 Neutropenia, unspecified; E11.22 Type 2 diabetes mellitus with diabetic chronic kidney disease; N18.3 Chronic kidney disease, stage 3 (moderate); R41.82 Altered mental status, unspecified; Z51.5 Encounter for palliative care; Z92.21 Personal history of antineoplastic chemotherapy; I12.9 Hypertensive chronic kidney disease with stage 1 through stage 4 chronic kidney disease, or unspecified chronic kidney disease; Z88.6 Allergy status to analgesic agent; Z88.2 Allergy status to sulfonamides; R50.81 Fever presenting with conditions classified elsewhere; F17.210 Nicotine dependence, cigarettes, uncomplicated; Z79.4 Long term (current) use of insulin
CPT/HCPCS: A4216; J1642; J2060; J2270; J3010